=== PATIENT | male | born 1930 | race Caucasian/White ===

== ENCOUNTER 2017-02-18 12:27 | Inpatient (IN) | payer OTHER, MEDICARE ==
[~2017-02-18] VITALS: Ht 162.6 cm; Wt 71.2 kg
[~2017-02-18 12:27] MED LIST: ASPEC81 PO; ATRINS INH; CRG625 PO; LPR25 PO; LSN5 PO; LSXS PO; PANT1TAB48 PO; SIMV20TA2 PO; XPNINS1255 INH
[2017-02-18] MEDS ORDERED: SODIUM CHLORIDE 0.9% 1000ML 1,000 ML IV STA (13:15)
[2017-02-18 13:34] LABS: URINE APPEARANCE CLEAR (CLEAR); URINE BILIRUBIN NEG (NEG); URINE NITRITE NEG (NEG); URINE SPECIFIC GRAVITY 1.018 (1.000-1.030); UROBILINOGEN NEG (NEG); ZZUR CULT IF INDIC CLEAN CATCH NO
[2017-02-18 13:38] LABS: MANUAL MICROSCOPIC REQUIRED? YES; REVIEW REQ? NO
[2017-02-18 13:41] LABS: URINE COLOR DK YELLOW
[2017-02-18 13:49] LABS: BASO % 0.2 %; BASO ABS # 0.01 K/uL (0-0.2); COMPLETE YES; EOS % 2.8 %; HEMATOCRIT 28.6 % (42-52); IG% 0.4 %; LYMPH % 19.9 %; LYMPH ABS # 1.12 K/uL (1.2-3.4); MEAN CELL VOLUME 97.6 fL (80-100); MEAN CORPUSCULAR HEMOGLOBIN 32.4 pg (25-34); MEAN CORPUSCULAR HGB CONC 33.2 g/dl (32-36); MEAN PLATELET VOLUME 9.3 fL (7.4-10.4); MONO % 14.6 %; NEUT % 62.1 %; PLATELET COUNT 243 K/uL (130-400); RED BLOOD COUNT 2.93 M/uL (4.7-6.1); WHITE BLOOD COUNT 5.63 K/uL (4.8-10.8)
[2017-02-18 14:08] LABS: ALT/SGPT 14 U/L (12-78); BLOOD UREA NITROGEN 72 mg/dl (7-18); BUN/CREATININE RATIO 25.6 (10-20); CALCIUM 8.7 mg/dl (8.5-10.1); CARBON DIOXIDE 24 mmol/L (21-32); CHLORIDE 106 mmol/L (98-107); GLUCOSE 104 mg/dl (70-99); POTASSIUM 4.4 mmol/L (3.5-5.1); SODIUM 138 mmol/L (136-145)
[2017-02-18 14:10] LABS: ALKALINE PHOSPHATASE 43 U/L (45-117); AST/SGOT 16 U/L (15-37)
[2017-02-18] MEDS ORDERED: FURO40TA3 PO (14:48)
[2017-02-18] MEDS ORDERED: ASPI-232 PO (14:48)
[2017-02-18] MEDS ORDERED: CARV25TA PO (14:48)
[2017-02-18] MEDS ORDERED: HYDR-4716 PO (14:50)
[2017-02-18] MEDS ORDERED: LOSA1TAB PO (14:50)
[2017-02-18] MEDS ORDERED: ONDANSETRON INJ 2 MG/ML 2 ML VIAL IV PRN (16:00)
[2017-02-18] MEDS ORDERED: POLYETHYLENE (MIRALAX) 17 GM PACK PO PRN (16:00)
[2017-02-18] MEDS ORDERED: ACETAMINOPHEN 325 MG TAB PO PRN (16:00)
[2017-02-18] MEDS ORDERED: MAGNESIUM HYDROXIDE SUSP 30 ML UDC PO PRN (16:00)
[2017-02-18] MEDS ORDERED: ALUMINUM/MAGNESIUM/SIMETH (MAALOX MAX) 30 ML UDC PO PRN (16:00)
--- NOTE | 2017-02-18 16:00 | EMERGENCY ROOM VISIT NOTE ---
History Report prepared by Beatriz: Ofelia Bowens Under the Supervision of: Arias MehtaO. First contact with patient: 13:07 Chief Complaint: URINARY SYMPTOMS Stated Complaint: KIDNEYS ARE FAILING Nursing Triage Summary: pt reports PCP called told to come to ED for tx of failing kidney and anemia, pt denies complaints History of Present Illness The patient is a 86 year old male who presents to the Emergency Room with complaints of abnormal labs. The patient had blood work done last week as an outpatient. He received a call this morning from his PCP stating that he had kidney failure and anemia and should come to the ED for further evaluation. The patient denies any history of kidney failure. He has had diarrhea for the past 3 months and states that he has a bowel movement 7-8 times per day. The patient denies chest pain, shortness of breath, nausea, vomiting, dysuria, and increased urinary frequency or urgency. He feels that he is able to completely void is bladder when he urinates. He does not have any complaints at this time. The patient does not take any blood thinners. 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 A total of 10 systems reviewed and were otherwise negative. Past Medical & Surgical Medical Problems: (1) Anxiety/depression (2) COPD (chronic obstructive pulmonary disease) (3) Diarrhea (4) History of heart-block status post dual-chambered pacemaker in 2001 (5) Hyperlipidemia (6) Hypertension (7) Mild MR, trace AI, mild TR, and mild aortic stenosis (8) Mild pulmonary hypertension (9) Peripheral vascular disease/carotid artery diseas Surgical Problems: (1) Right carotid endarterectomy with bovine patch angioplasty Family History No pertinent family history Social History Smoking Status: Never Smoker Drug Use: none Marital Status: Housing Status: lives with significant other Occupation Status: retired Current/Historical Medications Scheduled Aspirin (Aspir-81), 1 TAB PO DAILY Carvedilol (Coreg), 25 MG PO BID Cholecalciferol (Vitamin D), 400 TABLET PO DAILY Citalopram (Citalopram Hydrobromide), 40 MG PO DAILY Cyanocobalamin (Vitamin B12 100 Mcg), 100 MCG PO DAILY Furosemide (Lasix), 20 MG PO 4XWK Furosemide (Lasix), 40 MG PO 3XWK Home O2 Therapy (Oxygen), 2 LITERS NA CONTINOUS Hydralazine HCl (Hydralazine HCl), 1 TAB PO TID Losartan Potassium (Cozaar), 50 MG PO DAILY Multiple Vitamin (Multivitamin), 1 TAB PO DAILY Allergies Coded Allergies: No Known Allergies (Verified , 02/18/17) Physical Exam Vital Signs Date Time Temp Pulse Resp B/P (MAP) Pulse Ox O2 Delivery O2 Flow Rate FiO2 02/18/17 14:23 95 Nasal Cannula 2.0 02/18/17 14:22 95 Nasal Cannula 2.0 02/18/17 14:21 86 Room Air 02/18/17 14:17 69 18 135/57 92 Room Air 02/18/17 12:30 36.4 68 20 95/41 92 Room Air Physical Exam GENERAL: alert, sitting up in bed, chronically ill appearing, well nourished, no distress, non-toxic EYE EXAM: normal conjunctiva OROPHARYNX: no exudate, no erythema, lips, buccal mucosa, and tongue normal and mucous membranes are dry NECK: supple, no nuchal rigidity, no adenopathy, non-tender LUNGS: Clear to auscultation. Normal chest wall mechanics HEART: no murmurs, S1 normal and S2 normal ABDOMEN: abdomen soft, non-tender, normo-active bowel sounds, no masses, no rebound or guarding. BACK: Back is symmetrical on inspection and there is no deformity, no midline tenderness, no CVA tenderness. SKIN: no rashes and no bruising UPPER EXTREMITIES: upper extremities are grossly normal. LOWER EXTREMITIES: No pitting edema. NEURO EXAM: Normal sensorium, cranial nerves II-XII grossly intact, normal speech, no gross weakness of arms, no gross weakness of legs. Medical Decision & Procedures Laboratory Results 02/18/17 13:30 Red Blood Count 2.93, Mean Corpuscular Volume 97.6, Mean Corpuscular Hemoglobin 32.4, Mean Corpuscular Hemoglobin Concent 33.2, Mean Platelet Volume 9.3, Neutrophils (%) (Auto) 62.1, Lymphocytes (%) (Auto) 19.9, Monocytes (%) (Auto) 14.6, Eosinophils (%) (Auto) 2.8, Basophils (%) (Auto) 0.2, Neutrophils # (Auto ) 3.50, Lymphocytes # (Auto) 1.12, Monocytes # (Auto) 0.82, Eosinophils # (Auto ) 0.16, Basophils # (Auto) 0.01 02/18/17 13:30 Test 02/18/17 13:02 02/18/17 13:30 Urine Color DK YELLOW Urine Appearance CLEAR (CLEAR) Urine pH 5.0 (4.5-7.5) Urine Specific [place] 1.018 (1.000-1.030) Urine Protein TRACE (NEG) Urine Glucose (UA) NEG (NEG) Urine Ketones NEG (NEG) Urine Occult Blood NEG (NEG) Urine Nitrite NEG (NEG) Urine Bilirubin NEG (NEG) Urine Urobilinogen NEG (NEG) Urine Leukocyte Esterase NEG (NEG) Urine Hyaline Casts (Auto) /lpf (0-5) Urine RBC /hpf (0-4) Urine WBC /hpf (0-5) Urine Epithelial Cells /lpf (0-5) Urine Bacteria (NEG) Urine Pathogenic Casts /lpf (0) White Blood Count 5.63 K/uL (4.8-10.8) Red Blood Count 2.93 M/uL (4.7-6.1) Hemoglobin 9.5 g/dL (14.0-18.0) Hematocrit 28.6 % (42-52) Mean Corpuscular Volume 97.6 fL (80-100) Mean Corpuscular Hemoglobin 32.4 pg (25-34) Mean Corpuscular Hemoglobin Concent 33.2 g/dl (32-36) Platelet Count 243 K/uL (130-400) Mean Platelet Volume 9.3 fL (7.4-10.4) Neutrophils (%) (Auto) 62.1 % Lymphocytes (%) (Auto) 19.9 % Monocytes (%) (Auto) 14.6 % Eosinophils (%) (Auto) 2.8 % Basophils (%) (Auto) 0.2 % Neutrophils # (Auto) 3.50 K/uL (1.4-6.5) Lymphocytes # (Auto) 1.12 K/uL (1.2-3.4) Monocytes # (Auto) 0.82 K/uL (0.11-0.59) Eosinophils # (Auto) 0.16 K/uL (0-0.5) Basophils # (Auto) 0.01 K/uL (0-0.2) RDW Standard Deviation 49.5 fL (36.4-46.3) RDW Coefficient of Variation 14.0 % (11.5-14.5) Immature Granulocyte % (Auto) 0.4 % Immature Granulocyte # (Auto) 0.02 K/uL (0.00-0.02) Anion Gap 8.0 mmol/L (3-11) Est Creatinine Clear Calc Drug Dose 17.1 ml/min Estimated GFR () 22.5 Estimated GFR (Non- 19.4 BUN/Creatinine Ratio 25.6 (10-20) Calcium Level 8.7 mg/dl (8.5-10.1) Total Bilirubin 0.3 mg/dl (0.2-1) Direct Bilirubin < 0.1 mg/dl (0-0.2) Aspartate Amino Transf (AST/SGOT) 16 U/L (15-37) Alanine Aminotransferase (ALT/SGPT) 14 U/L (12-78) Alkaline Phosphatase 43 U/L (45-117) Total Protein 6.8 gm/dl (6.4-8.2) Albumin 3.0 gm/dl (3.4-5.0) Lipase 138 U/L (73-393) Laboratory results per my review. Medications Administered Medications (Trade) Dose Ordered Sig/Kaya Route Start Time Stop Time Status Last Admin Dose Admin Sodium Chloride 1,000 ml @ 999 mls/hr Q1H1M STAT IV 02/18/17 13:15 02/18/17 14:15 DC 02/18/17 13:33 999 MLS/HR ED Course ED COURSE: Vital signs were reviewed and showed hypertensive. The patients medical record was reviewed The above diagnostic studies were performed and reviewed. ED treatments and interventions as stated above. 1307: The patient was evaluated in room B2. A complete history and physical examination was performed. 1315: NSS 1000 ml @ 999 mls/hr IV 1413: Upon reevaluation, the patient is resting comfortably. I discussed my findings with the patient and he understands and agrees with the treatment plan. Based on the patients age, coexisting illnesses, exam and lab findings the decision to treat as an inpatient was made. The patient remained stable while under my care. The patient will be evaluated for further management. 1457: I reviewed the patient's case with Dr. Mendez. The [facility] will evaluate the patient for further management. Medical Decision Differential Diagnosis includes but is not limited to dehydration, stroke, anemia, hypoglycemia, hyponatremia, hypernatremia, urinary tract infection, pneumonia, bronchitis, sepsis, gastroenteritis, additional abdominal pathology, metabolic abnormalities and infections. Medication Reconciliation: I attest that I have personally reviewed the patient' s current medication list. Patient is in 86-year-old male who presents the ER for acute kidney injury referred in by PCP. Baseline creatinine is 1.8. Creatinine today is 2.8. He does admit to persistent diarrhea over the past 1-2 months. Hemoglobin is 9.5. LFTs and bilirubin was unremarkable. Lipase is normal. UA was miniscule and only able to perform a dip. He was given a bolus normal saline. He was admitted to internal medicine with acute kidney injury which I think is likely secondary to dehydration. Consults Time Called: 1424 Consulting Physician: Dr. Mendez Returned Call: [phone] I reviewed the patient's case with Dr. Mendez. [facility] will evaluate the patient for further management. Impression Primary Impression: Acute kidney injury Additional Impression: Diarrhea Scribe Attestation The scribe's documentation has been prepared under my direction and personally reviewed by me in its entirety. I confirm that the note above accurately reflects all work, treatment, procedures, and medical decision making performed by me. Departure Information Dispostion Being Evaluated By Hospitalist Referrals Ananda Vazquez PA-C (PCP) Patient Instructions My [facility] Problem Qualifiers Additional Impression: Diarrhea Diarrhea type: unspecified type Qualified Codes: R19.7 - Diarrhea, unspecified
--- NOTE | 2017-02-18 16:13 | History and Physical ---
History & Physical Date & Time of Service: Feb 18, 2017 at 15:54 Chief Complaint: Kidneys Are Failing Primary Care Physician: Ananda Vazquez PA-C History of Present Illness Source: patient, family (daughter- at bedside ), clinic records, hospital records Patient is a pleasant 86 y/o male, with PMHx of chronic systolic CHF, COPD, HTN , CKD stage 3-4, anemia of chronic disease, CAD, sick sinus syndrome s/p pacemaker implantation, paroxysmal a.fib, and anxiety/depression, who presented to the ED by referral from PCP due to abnormal labs of BRYAN and anemia. Patient states he has been experiencing diarrhea 6-7x per day over the last week. Patient experienced similar symptoms about 3 months ago. At that time, he was seen by his PCP and received a CT scan; he was told he had colitis and was placed on a Prednisone taper. Symptoms resolved, but since discontinuing Prednisone, he has noticed his diarrhea has slowly started to worsen. At the onset of diarrhea, patient was taking Protonix but instructed to discontinue due to diarrhea. He denies following w/ GI doctor. Patient states he has been eating and drinking OK. He denies abdominal pain/cramping. He denies melena or bloody stools, stating his stools are "clear liquid." He denies recent antibiotic use. +SOB- chronic, non-worsening; wears 2L HS. Patient denies any fever, chills, sweats, lightheadedness, dizziness, vision changes, CP, palpitations, edema, wheezing, cough, abdominal pain, nausea, vomiting, urinary symptoms, melena, numbness/tingling, weakness, muscle/joint pain, anxiety/ depression, active bleeding, or new skin discoloration/changes. Past Medical/Surgical History Medical Problems: 1. Chronic systolic CHF 2. COPD 3. 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 Anemia of chronic disease 6. CAD 7. Sick sinus syndrome s/p pacemaker implantation 8. Paroxysmal a.fib 9. Anxiety/depression Surgical Problems: 1. Bilateral carotid endarterectomy Family History No pertinent family history Social History Smoking Status: Former Smoker Alcohol Use: none Drug Use: none Marital Status: Housing status: lives with family Occupational Status: retired Immunizations History of Influenza Vaccine: Unknown Influenza Vaccine Date: Jun 16, 2011 History of Tetanus Vaccine?: Unknown History of Pneumococcal: Unknown Pneumococcal Date: January 14, 2011 History of Hepatitis B Vaccine: Unknown Allergies Coded Allergies: No Known Allergies (Verified , 02/18/17) Home Medications Scheduled Aspirin (Aspir-81), 1 TAB PO DAILY Carvedilol (Coreg), 25 MG PO BID Cholecalciferol (Vitamin D), 400 TABLET PO DAILY Citalopram (Citalopram Hydrobromide), 40 MG PO DAILY Cyanocobalamin (Vitamin B12 100 Mcg), 100 MCG PO DAILY Furosemide (Lasix), 20 MG PO 4XWK Furosemide (Lasix), 40 MG PO 3XWK Home O2 Therapy (Oxygen), 2 LITERS NA CONTINOUS Hydralazine HCl (Hydralazine HCl), 1 TAB PO TID Losartan Potassium (Cozaar), 50 MG PO DAILY Multiple Vitamin (Multivitamin), 1 TAB PO DAILY Physical Exam Vital Signs Date Time Temp Pulse Resp B/P (MAP) Pulse Ox O2 Delivery O2 Flow Rate FiO2 02/18/17 14:23 95 Nasal Cannula 2.0 02/18/17 14:22 95 Nasal Cannula 2.0 02/18/17 14:21 86 Room Air 02/18/17 14:17 69 18 135/57 92 Room Air 02/18/17 12:30 36.4 68 20 95/41 92 Room Air General Appearance: no apparent distress Head: normocephalic, atraumatic Eyes: normal inspection, PERRL ENT: hearing grossly normal Neck: supple Respiratory/Chest: lungs clear, no respiratory distress, no accessory muscle use Cardiovascular: regular rate, rhythm, + systolic murmur (radiates to bilateral carotids ) Abdomen/GI: normal bowel sounds, non tender, soft Back: normal inspection Extremities/Musculoskelatal: no calf tenderness, no pedal edema Neurologic/Psych: alert, normal mood/affect, oriented x 3 Skin: normal color, warm/dry, no rash Diagnostics Laboratory Results Results Past 24 Hours Test 02/18/17 13:02 02/18/17 13:30 Range/Units Urine Color DK YELLOW Urine Appearance CLEAR CLEAR Urine pH 5.0 4.5-7.5 Urine Specific [place] 1.018 1.000-1.030 Urine Protein TRACE NEG Urine Glucose (UA) NEG NEG Urine Ketones NEG NEG Urine Occult Blood NEG NEG Urine Nitrite NEG NEG Urine Bilirubin NEG NEG Urine Urobilinogen NEG NEG Urine Leukocyte Esterase NEG NEG Urine Hyaline Casts (Auto) 0-5 /lpf Urine RBC 0-4 /hpf Urine WBC 0-5 /hpf Urine Epithelial Cells 0-5 /lpf Urine Bacteria NEG Urine Pathogenic Casts 0 /lpf White Blood Count 5.63 4.8-10.8 K/uL Red Blood Count 2.93 4.7-6.1 M/uL Hemoglobin 9.5 14.0-18.0 g/dL Hematocrit 28.6 42-52 % Mean Corpuscular Volume 97.6 80-100 fL Mean Corpuscular Hemoglobin 32.4 25-34 pg Mean Corpuscular Hemoglobin Concent 33.2 32-36 g/dl Platelet Count 243 130-400 K/uL Mean Platelet Volume 9.3 7.4-10.4 fL Neutrophils (%) (Auto) 62.1 % Lymphocytes (%) (Auto) 19.9 % Monocytes (%) (Auto) 14.6 % Eosinophils (%) (Auto) 2.8 % Basophils (%) (Auto) 0.2 % Neutrophils # (Auto) 3.50 1.4-6.5 K/uL Lymphocytes # (Auto) 1.12 1.2-3.4 K/uL Monocytes # (Auto) 0.82 0.11-0.59 K/uL Eosinophils # (Auto) 0.16 0-0.5 K/uL Basophils # (Auto) 0.01 0-0.2 K/uL RDW Standard Deviation 49.5 36.4-46.3 fL RDW Coefficient of Variation 14.0 11.5-14.5 % Immature Granulocyte % (Auto) 0.4 % Immature Granulocyte # (Auto) 0.02 0.00-0.02 K/uL Sodium Level 138 136-145 mmol/L Potassium Level 4.4 3.5-5.1 mmol/L Chloride Level 106 98-107 mmol/L Carbon Dioxide Level 24 21-32 mmol/L Anion Gap 8.0 3-11 mmol/L Blood Urea Nitrogen 72 7-18 mg/dl Creatinine 2.80 0.60-1.40 mg/dl Est Creatinine Clear Calc Drug Dose 17.1 ml/min Estimated GFR () 22.5 Estimated GFR (Non- 19.4 BUN/Creatinine Ratio 25.6 10-20 Random Glucose 104 70-99 mg/dl Calcium Level 8.7 8.5-10.1 mg/dl Total Bilirubin 0.3 0.2-1 mg/dl Direct Bilirubin < 0.1 0-0.2 mg/dl Aspartate Amino Transf (AST/SGOT) 16 15-37 U/L Alanine Aminotransferase (ALT/SGPT) 14 12-78 U/L Alkaline Phosphatase 43 45-117 U/L Total Protein 6.8 6.4-8.2 gm/dl Albumin 3.0 3.4-5.0 gm/dl Lipase 138 73-393 U/L Impression Assessment and Plan Patient is a pleasant 86 y/o male, with PMHx of chronic systolic CHF, COPD, HTN , CKD stage 3-4, anemia of chronic disease, CAD, sick sinus syndrome s/p pacemaker implantation, paroxysmal a.fib, and anxiety/depression, who presented to the ED by referral from PCP due to abnormal labs of BRYAN and anemia. BRYAN on CKD stage 3-4, ?secondary to dehydration from diarrhea: - Admit to med/surg - IV NSS @ 100 ml/hr - If kidney function does not improve w/ IVF, consult nephrology- patient has followed w/ Dr. Merrill in the past - Follow PRP Diarrhea: - Obtain CT scan from [facility] - Check fecal occult, stool culture, and c.diff - Consult GI, appreciate recommendations- denies h/o colonoscopy Anemia of chronic disease, baseline hgb ~11.0: - Check fecal occult - Continue iron supplement - Consider addition workup of b12/folate, iron panel, and TSH - Follow CBC Chronic systolic CHF/CAD/sick sinus s/p pacemaker: - Hold Lasix 20 mg 4XWk and 40 mg 3XWK due to BRYAN and ?dehydration - Continue Coreg 25 mg BID - Follows w/ Dr. Howell HTN: - Hold Losartan 50 mg daily due to BRYAN - Continue Hydralazine 25 mg TID COPD: - O2 protocol, wean as tolerated- wears 2L HS Anxiety/depression: Continue Celexa 40 mg daily GI Prophylaxis: Maalox PRN, IV Zofran PRN, Colace and/or Milk of Mag PRN Code Status: LEVEL V, DNR DVT prophylaxis: MAMADOU and SCDs; hold chemical therapy due to anemia Dispo: From home, lives w/ who is bed bound and has [facility]- social science teacher consulted PA Physician Supervision Note: I was present with the PA during the history and exam. I discussed the case with the PA and agree with the findings and plan as documented in the note. Any exceptions or clarifications are listed here: 86 y/o M Hx CHF, CKD, COPD, CAD Sent form MD office due to BRYAN and anemia Pt is a poor historian and denies any symptoms OE AAO x 2 S1,2 - irreg ++systolic murmur CTAB NT, ND No CCE P: IVF - trend BMP Careful monitoring of volume status due to CHF and need for hydration Trend Hb - occult blood pending Documented By: Isaac Mendez Level of Care Med/Surg Resuscitation Status FULL RESUSCITATION VTE Prophylaxis VTE Risk Assessment Done? Y/N: Yes Risk Level: Moderate Given or contraindicated: T.E.D. Stockings, SCD's, Contraindicated
[2017-02-18 17:00] VITALS: BP 150/61; PULSE 72; TEMP 36.5; O2SAT 90
[2017-02-18] MEDS: SODIUM CHLORIDE 0.9% 1000ML 1,000 ML IV SCH (18:41)
[2017-02-18 18:45] VITALS: BP 150/61; PULSE 72; TEMP 36.5; O2SAT 90; Ht 162.6 cm; Wt 71.2 kg
[2017-02-18 20:59] VITALS: BP 149/60; PULSE 77
[2017-02-18] MEDS: CARVEDILOL 25 MG TAB PO SCH (21:02)
[2017-02-18 23:24] VITALS: BP 123/53; PULSE 71; TEMP 37.1; O2SAT 96
[2017-02-19] MEDS: SODIUM CHLORIDE 0.9% 1000ML 1,000 ML IV SCH ×3 (02:17→21:30)
[2017-02-19 05:58] LABS: HEMATOCRIT 26.5 % (42-52); MEAN CELL VOLUME 97.4 fL (80-100); MEAN CORPUSCULAR HEMOGLOBIN 31.6 pg (25-34); MEAN CORPUSCULAR HGB CONC 32.5 g/dl (32-36); MEAN PLATELET VOLUME 9.4 fL (7.4-10.4); PLATELET COUNT 230 K/uL (130-400); RED BLOOD COUNT 2.72 M/uL (4.7-6.1); WHITE BLOOD COUNT 5.55 K/uL (4.8-10.8)
[2017-02-19 06:47] LABS: BUN/CREATININE RATIO 24.3 (10-20); CREATININE 2.5 mg/dl (0.60-1.40); MAGNESIUM 2.3 mg/dl (1.8-2.4); POTASSIUM 4.3 mmol/L (3.5-5.1)
[2017-02-19 06:55] LABS: CALCIUM 7.7 mg/dl (8.5-10.1)
[2017-02-19 07:14] VITALS: BP 134/61; PULSE 61; TEMP 37; O2SAT 95
[2017-02-19] MEDS: CITALOPRAM 40 MG TAB PO SCH (08:22)
[2017-02-19] MEDS: MULTIVITAMIN TAB PO SCH (08:22)
[2017-02-19] MEDS: CYANOCOBALAMIN 100 MCG TAB (VIT B-12) PO SCH (08:22)
[2017-02-19] MEDS: CARVEDILOL 25 MG TAB PO SCH ×2 (08:22→21:26)
[2017-02-19] MEDS: CHOLECALCIFEROL 1000 INTER.UNIT TAB PO SCH (08:22)
--- NOTE | 2017-02-19 10:08 | Gastrointestinal Consultation ---
Gastrointestinal Consultation Date of Consultation: Feb 19, 2017 Attending Physician: Dr. Sims Consulting Physician: Dr. Tasha Gaitan Reason for Consultation: Diarrhea, ? colitis History of Present Illness Patient is a 86 year old male patient of Ananda Vazquez PA-C with a hx of CHF, COPD, HTN, CKD 3-4, CAD sick sinus syndrome, A-fib was sent to the ED for acute kidney injury and anemia. GI is consulted for diarrhea, question colitis. He reports 6-7 liquid DMs/day for the past week. He also recalls a similar episode about 3 months ago. He tells us that he underwent CT scan with colitis at that time and was treated with prednisone which he has since tapered off. He has not had any abdominal pain, nausea, vomiting. No melena or hematochezia though occult stool was positive on arrival. Also, on arrival, Hb was 8.6, does form a baseline of about 10 a year ago. BUN is 61 and Cr is also increased at 2.5. EPIC records were reviewed and there is no hx of prior endoscopy. Past Medical/Surgical History Medical Problems: (1) Acute kidney injury Status: Acute Past Medical History: 1. Chronic systolic CHF 2. COPD 3. 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 Anemia of chronic disease 6. CAD 7. Sick sinus syndrome s/p pacemaker implantation 8. Paroxysmal a.fib 9. Anxiety/depression Past Surgical History: 1. Bilateral carotid endartectomy. Family History No pertinent family history Social History Smoking Status: Former Smoker Drug Use: none Marital Status: Housing Status: lives with significant other Occupation Status: retired Allergies Coded Allergies: No Known Allergies (Verified , 02/18/17) Current Medications Home Meds and Scripts Medications Dose Route/Sig Max Daily Dose Days Date Category Dose Instructions Cozaar (Losartan Potassium) 25 Mg Tab 50 Mg PO DAILY 02/18/17 Reported Hydralazine HCl 25 Mg Tab 1 Tab PO TID 02/18/17 Reported Lasix (Furosemide) 40 Mg Tab 40 Mg PO 3XWK 02/18/17 Reported Thursday, Thursday and Thursday Lasix (Furosemide) 20 Mg Tab 20 Mg PO 4XWK 02/18/17 Reported Thursday, Thursday, and Thursday Aspir-81 (Aspirin) 81 Mg Tab 1 Tab PO DAILY 90 02/18/17 Reported Coreg (Carvedilol) 25 Mg Tab 25 Mg PO BID 02/18/17 Reported Oxygen Gas 2 Liters NA CONTINOUS 12/10/14 Reported Citalopram Hydrobromide (Citalopram) 40 Mg Tab 40 Mg PO DAILY 12/10/14 Reported Vitamin D (Cholecalciferol) 400 Unit Tab 400 Tablet PO DAILY 09/20/13 Reported Vitamin B12 100 Mcg (Cyanocobalamin) 100 Mcg Tab 100 Mcg PO DAILY 09/20/13 Reported Multivitamin (Multiple Vitamin) 1 Tab Tab 1 Tab PO DAILY 09/20/13 Reported Review of Systems Constitutional: No fever, No chills, No sweats, No weight loss, No weakness Eyes: No eye pain, No redness ENT: No sore throat, No trouble swallowing, No pain on swallowing Respiratory: No cough, No wheezing, No shortness of breath, No dyspnea on exertion Cardiac: No chest pain, No edema, No palpitations Abdomen: + see HPI, + diarrhea, No pain, No nausea, No vomiting Neuro: No memory loss, No weakness, No numbness/tingling, No vertigo, No balance problems Psych: No depression symptoms, No anxiety, No insomnia Heme: No abnormal bleeding/bruising, No night sweats Endo: No excessive thirst, No excessive urination Skin: No rash, No itch, No new/changing skin lesions, No jaundice Physical Exam Date Time Temp Pulse Resp B/P (MAP) Pulse Ox O2 Delivery O2 Flow Rate FiO2 02/19/17 08:00 Room Air 02/19/17 07:14 37.0 61 16 134/61 (85) 95 Room Air 02/19/17 00:00 Nasal Cannula 2.0 02/18/17 23:24 37.1 71 16 123/53 (76) 96 Nasal Cannula 2.0 02/18/17 20:59 77 149/60 (89) 02/18/17 18:45 36.5 72 20 150/61 90 Room Air 02/18/17 17:00 36.5 72 20 150/61 (90) 90 Room Air 02/18/17 16:27 71 16 151/53 95 Nasal Cannula 2.0 02/18/17 14:23 95 Nasal Cannula 2.0 02/18/17 14:22 95 Nasal Cannula 2.0 02/18/17 14:21 86 Room Air 02/18/17 14:17 69 18 135/57 92 Room Air 02/18/17 12:30 36.4 68 20 95/41 92 Room Air General Appearance: no apparent distress Eyes: normal inspection, EOMI Neck: supple, no adenopathy, thyroid normal Respiratory/Chest: chest non-tender, no accessory muscle use, + crackles, + wheezing (scattered ) Cardiovascular: no JVD, + systolic murmur, + irregularly irregular Abdomen: normal bowel sounds, non tender, soft, no organomegaly Extremities: normal inspection, no pedal edema, normal capillary refill Neurologic/Psych: alert, normal mood/affect, oriented x 3 Skin: normal color, no jaundice, warm/dry, no rash Laboratory Results Last 24 Hours Test 02/18/17 13:02 02/18/17 13:30 02/18/17 22:00 02/19/17 05:10 Urine Color DK YELLOW Urine Appearance CLEAR Urine pH 5.0 Urine Specific [place] 1.018 Urine Protein TRACE Urine Glucose (UA) NEG Urine Ketones NEG Urine Occult Blood NEG Urine Nitrite NEG Urine Bilirubin NEG Urine Urobilinogen NEG Urine Leukocyte Esterase NEG Urine Hyaline Casts (Auto) /lpf Urine RBC /hpf Urine WBC /hpf Urine Epithelial Cells /lpf Urine Bacteria Urine Pathogenic Casts /lpf White Blood Count 5.63 K/uL 5.55 K/uL Red Blood Count 2.93 M/uL 2.72 M/uL Hemoglobin 9.5 g/dL 8.6 g/dL Hematocrit 28.6 % 26.5 % Mean Corpuscular Volume 97.6 fL 97.4 fL Mean Corpuscular Hemoglobin 32.4 pg 31.6 pg Mean Corpuscular Hemoglobin Concent 33.2 g/dl 32.5 g/dl Platelet Count 243 K/uL 230 K/uL Mean Platelet Volume 9.3 fL 9.4 fL Neutrophils (%) (Auto) 62.1 % Lymphocytes (%) (Auto) 19.9 % Monocytes (%) (Auto) 14.6 % Eosinophils (%) (Auto) 2.8 % Basophils (%) (Auto) 0.2 % Neutrophils # (Auto) 3.50 K/uL Lymphocytes # (Auto) 1.12 K/uL Monocytes # (Auto) 0.82 K/uL Eosinophils # (Auto) 0.16 K/uL Basophils # (Auto) 0.01 K/uL RDW Standard Deviation 49.5 fL 49.8 fL RDW Coefficient of Variation 14.0 % 14.1 % Immature Granulocyte % (Auto) 0.4 % Immature Granulocyte # (Auto) 0.02 K/uL Sodium Level 138 mmol/L 140 mmol/L Potassium Level 4.4 mmol/L 4.3 mmol/L Chloride Level 106 mmol/L 110 mmol/L Carbon Dioxide Level 24 mmol/L 21 mmol/L Anion Gap 8.0 mmol/L 9.0 mmol/L Blood Urea Nitrogen 72 mg/dl 61 mg/dl Creatinine 2.80 mg/dl 2.50 mg/dl Est Creatinine Clear Calc Drug Dose 17.1 ml/min 18.9 ml/min Estimated GFR () 22.5 25.8 Estimated GFR (Non- 19.4 22.3 BUN/Creatinine Ratio 25.6 24.3 Random Glucose 104 mg/dl 90 mg/dl Calcium Level 8.7 mg/dl 7.7 mg/dl Total Bilirubin 0.3 mg/dl Direct Bilirubin < 0.1 mg/dl Aspartate Amino Transf (AST/SGOT) 16 U/L Alanine Aminotransferase (ALT/SGPT) 14 U/L Alkaline Phosphatase 43 U/L Total Protein 6.8 gm/dl Albumin 3.0 gm/dl Lipase 138 U/L Stool Occult Blood POSITIVE Magnesium Level 2.3 mg/dl Impression Patient is a 86 year old male with recurrent, painless diarrhea. C-diff is negative. Differentials include microscopic colitis, ulcerative colitis. Regarding his anemia, he is below his typical baseline but no gross GI bleeding. Plan 1. Offered colonoscopy but pt declines. 2. Cholestyramine twice daily. 3. Would also consider Imodium. I saw and evaluated the patient. GI is consulted for persistent diarrhea over 3 to 4 months. PE: NAD, No abdominal tenderness Impression: patient with diarrhea, no obvious infection based on cultures today. PErhaps the patient has Microscopic colitis given the use of nsaids and a PPI. AT this time, the patient is not interested in Colonscopy REcs: Stool culture stool for Giardia Stool for O and P Try Qeustran 4 gm bid please call with questions
--- NOTE | 2017-02-19 13:30 | Progress Note ---
Subjective Date of Service: Feb 19, 2017. Subjective Pt evaluation today including: conversation w/ patient, physical exam, lab review, conversation w/ instructional consultant, review of inpatient medication list Pain: denies pain PO Intake: adequate Voiding: no voiding problems patient says that he is moving bowels several times a day, small, mostly liquid but some formed elements no blood or melena seen appreciate GI note, patient refused colonoscopy he has NEVER had a colonoscopy he is concerned because his sister in law had a perforation and required a colostomy assured him that that is a rare complication colonoscopy could provide us with diagnosis that could be treated, asked him to reconsider reviewed labs, BUN/Cr improved, Hb down to 8.5 Problem List Medical Problems: (1) Acute kidney injury Status: Acute Review of Systems Constitutional: + weakness, + fatigue Abdomen: + diarrhea All Other Systems: Reviewed and Negative Medications Current Inpatient Medications Medications (Trade) Dose Ordered Sig/Kaya Route Start Time Stop Time Status Last Admin Dose Admin Acetaminophen (Tylenol Tab) 650 mg Q4H PRN PO 02/18/17 16:00 03/20/17 15:59 Al Hydrox/Mg Hydrox/Simethicone (Maalox Max Susp) 15 ml Q4H PRN PO 02/18/17 16:00 03/20/17 15:59 Magnesium Hydroxide (Milk Of Magnesia Susp) 30 ml Q6H PRN PO 02/18/17 16:00 03/20/17 15:59 Ondansetron HCl (Zofran Inj) 4 mg Q6H PRN IV 02/18/17 16:00 03/20/17 15:59 Sodium Chloride 1,000 ml @ 100 mls/hr Q10H IV 02/18/17 16:00 03/20/17 15:59 02/19/17 11:57 100 MLS/HR Carvedilol (Coreg Tab) 25 mg BID PO 02/18/17 21:00 03/20/17 20:59 02/19/17 08:22 25 MG Cholecalciferol (Vitamin D Tab) 1,000 inter.unit DAILY PO 02/19/17 09:00 03/21/17 08:59 02/19/17 08:22 1,000 INTER.UNIT Citalopram Hydrobromide (celeXA TAB) 40 mg DAILY PO 02/19/17 09:00 03/21/17 08:59 6/15/17 08:22 40 MG Cyanocobalamin (Vitamin B-12 Tab) 100 mcg DAILY PO 02/19/17 09:00 03/21/17 08:59 02/19/17 08:22 100 MCG Hydralazine HCl (Apresoline Tab) 25 mg TID PO 02/18/17 21:00 03/20/17 20:59 02/19/17 08:21 25 MG Multivitamins (Multivitamin Tab) 1 tab DAILY PO 02/19/17 09:00 03/21/17 08:59 02/19/17 08:22 1 TAB Cholestyramine Resin (Questran Powder Light) 4 gm BID@ PO 02/19/17 22:00 03/21/17 21:59 Objective Vital Signs Date Time Temp Pulse Resp B/P (MAP) Pulse Ox O2 Delivery O2 Flow Rate FiO2 02/19/17 08:00 Room Air 02/19/17 07:14 37.0 61 16 134/61 (85) 95 Room Air 02/19/17 00:00 Nasal Cannula 2.0 02/18/17 23:24 37.1 71 16 123/53 (76) 96 Nasal Cannula 2.0 02/18/17 20:59 77 149/60 (89) 02/18/17 18:45 36.5 72 20 150/61 90 Room Air 02/18/17 17:00 36.5 72 20 150/61 (90) 90 Room Air 02/18/17 16:27 71 16 151/53 95 Nasal Cannula 2.0 02/18/17 14:23 95 Nasal Cannula 2.0 02/18/17 14:22 95 Nasal Cannula 2.0 02/18/17 14:21 86 Room Air 02/18/17 14:17 69 18 135/57 92 Room Air Physical Exam General Appearance: WD/WN, no apparent distress Eyes: normal inspection, EOMI, sclerae normal Neck: supple, no adenopathy, no JVD, trachea midline Respiratory/Chest: chest non-tender, lungs clear, normal breath sounds, no respiratory distress, no accessory muscle use Cardiovascular: regular rate, rhythm, no edema, no gallop, no JVD, + systolic murmur Abdomen: normal bowel sounds, non tender, soft, no organomegaly Extremities: normal range of motion, non-tender, normal inspection, no pedal edema, no calf tenderness, pelvis stable 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, no motor/sensory deficits, alert, normal mood/affect, oriented x 3 Skin: normal color, warm/dry, no rash Lymphatic: no adenopathy Laboratory Results Last 24 Hours Test 02/18/17 13:30 02/18/17 22:00 02/19/17 05:10 White Blood Count 5.63 K/uL 5.55 K/uL Red Blood Count 2.93 M/uL 2.72 M/uL Hemoglobin 9.5 g/dL 8.6 g/dL Hematocrit 28.6 % 26.5 % Mean Corpuscular Volume 97.6 fL 97.4 fL Mean Corpuscular Hemoglobin 32.4 pg 31.6 pg Mean Corpuscular Hemoglobin Concent 33.2 g/dl 32.5 g/dl Platelet Count 243 K/uL 230 K/uL Mean Platelet Volume 9.3 fL 9.4 fL Neutrophils (%) (Auto) 62.1 % Lymphocytes (%) (Auto) 19.9 % Monocytes (%) (Auto) 14.6 % Eosinophils (%) (Auto) 2.8 % Basophils (%) (Auto) 0.2 % Neutrophils # (Auto) 3.50 K/uL Lymphocytes # (Auto) 1.12 K/uL Monocytes # (Auto) 0.82 K/uL Eosinophils # (Auto) 0.16 K/uL Basophils # (Auto) 0.01 K/uL RDW Standard Deviation 49.5 fL 49.8 fL RDW Coefficient of Variation 14.0 % 14.1 % Immature Granulocyte % (Auto) 0.4 % Immature Granulocyte # (Auto) 0.02 K/uL Sodium Level 138 mmol/L 140 mmol/L Potassium Level 4.4 mmol/L 4.3 mmol/L Chloride Level 106 mmol/L 110 mmol/L Carbon Dioxide Level 24 mmol/L 21 mmol/L Anion Gap 8.0 mmol/L 9.0 mmol/L Blood Urea Nitrogen 72 mg/dl 61 mg/dl Creatinine 2.80 mg/dl 2.50 mg/dl Est Creatinine Clear Calc Drug Dose 17.1 ml/min 18.9 ml/min Estimated GFR () 22.5 25.8 Estimated GFR (Non- 19.4 22.3 BUN/Creatinine Ratio 25.6 24.3 Random Glucose 104 mg/dl 90 mg/dl Calcium Level 8.7 mg/dl 7.7 mg/dl Total Bilirubin 0.3 mg/dl Direct Bilirubin < 0.1 mg/dl Aspartate Amino Transf (AST/SGOT) 16 U/L Alanine Aminotransferase (ALT/SGPT) 14 U/L Alkaline Phosphatase 43 U/L Total Protein 6.8 gm/dl Albumin 3.0 gm/dl Lipase 138 U/L Stool Occult Blood POSITIVE Magnesium Level 2.3 mg/dl Assessment and Plan Patient is a pleasant 86 y/o male, with PMHx of chronic systolic CHF, COPD, HTN , CKD stage 3-4, anemia of chronic disease, CAD, sick sinus syndrome s/p pacemaker implantation, paroxysmal a.fib, and anxiety/depression, who presented to the ED by referral from PCP due to abnormal labs of BRYAN and anemia. BRYAN on CKD stage 3-4, likely prerenal secondary to dehydration from diarrhea: Cr improved to 2.5 today from 2.8, BUN also trending down continue NSS at 100cc/hr for today, hold nephrotoxins repeat labs tomorrow Diarrhea: several weeks duration at this point, non-bloody, did improve with Prednisone need to review CT from [place] follow up cultures, C diff negative GI recommended colonoscopy, patient refuses, asked him to strongly reconsider Questran and Imodium PRN Anemia of chronic disease, baseline hgb ~11.0: mild drop in Hb to 8.5, will follow closely continue iron supplement fecal occult Chronic systolic CHF/CAD/sick sinus s/p pacemaker: hold Lasix again today, will resume once NSS off continue Coreg hold Losartan HTN: BP stable, hold Losartan, continue Hydralazine COPD: - O2 protocol, wean as tolerated- wears 2L HS Anxiety/depression: Continue Celexa 40 mg daily Code Status: LEVEL V, DNR DVT prophylaxis: MAMADOU and SCDs; hold chemical therapy due to anemia
[2017-02-19 15:26] VITALS: BP 130/63; PULSE 74; TEMP 36.6; O2SAT 90
[2017-02-19 16:00] VITALS: O2SAT 90
[2017-02-19 21:24] VITALS: BP 163/71; PULSE 78; O2SAT 93
[2017-02-19] MEDS: CHOLESTYRAMINE LIGHT 4 GM PKT PO SCH (21:30)
[2017-02-20] VITALS: BP 138/62; PULSE 82; TEMP 36.7; O2SAT 92
[2017-02-20 06:37] LABS: HEMATOCRIT 25.9 % (42-52); MEAN CELL VOLUME 96.3 fL (80-100); MEAN CORPUSCULAR HEMOGLOBIN 31.2 pg (25-34); MEAN CORPUSCULAR HGB CONC 32.4 g/dl (32-36); MEAN PLATELET VOLUME 9.1 fL (7.4-10.4); PLATELET COUNT 220 K/uL (130-400); RED BLOOD COUNT 2.69 M/uL (4.7-6.1); WHITE BLOOD COUNT 5.87 K/uL (4.8-10.8)
[2017-02-20 07:11] LABS: BUN/CREATININE RATIO 24.1 (10-20); CALCIUM 7.1 mg/dl (8.5-10.1); CREATININE 1.9 mg/dl (0.60-1.40); POTASSIUM 4.3 mmol/L (3.5-5.1)
[2017-02-20 07:17] VITALS: BP 141/57; PULSE 72; TEMP 37; O2SAT 95
[2017-02-20] MEDS: CYANOCOBALAMIN 100 MCG TAB (VIT B-12) PO SCH (08:27)
[2017-02-20] MEDS: CHOLECALCIFEROL 1000 INTER.UNIT TAB PO SCH (08:27)
[2017-02-20] MEDS: MULTIVITAMIN TAB PO SCH (08:27)
[2017-02-20] MEDS: CHOLESTYRAMINE LIGHT 4 GM PKT PO SCH (08:27)
[2017-02-20] MEDS: SODIUM CHLORIDE 0.9% 1000ML 1,000 ML IV SCH (08:27)
[2017-02-20] MEDS: CARVEDILOL 25 MG TAB PO SCH (08:28)
[2017-02-20] MEDS: CITALOPRAM 40 MG TAB PO SCH (08:28)
[2017-02-20] MEDS ORDERED: IMD2X PO (09:56)
[2017-02-20] MEDS ORDERED: QSTP PO (09:56)
--- NOTE | 2017-02-20 10:07 | Discharge Instructions ---
Discharge Instructions Date of Service Feb 20, 2017. Admission Reason for Admission: Acute Renal Failure, Diarrhea Discharge Discharge Diagnosis / Problem: Diarrhea, Acute renal failure on CKD Discharge Goals Goal(s): Improve function, Improve disease control Activity Recommendations Activity Limitations: resume your previous activity Lifting Limitations: none Exercise/Sports Limitations: as tolerated May Resume Sexual Activity: when tolerated Shower/Bathe: no limitations Driving or Machine Use: no limitations . Instructions / Follow-Up Instructions / Follow-Up Medications: - HYDRALAZINE: stop this medication to see if diarrhea resolves since the medication was added prior to diarrhea starting - CHOLESTYRAMINE: take twice a day to solidify stools, if stools become hard then taper back to just once a day and if still solid stop all together - IMODIUM: use as needed if you still have diarrhea with the Cholestyramine Diarrhea: infectious causes such as C diff and other bacterial infections ruled out with cultures. Gastroenterology has offered a colonoscopy which you have refused. benefit really could outweigh the risks as we could get a diagnosis however, I think it is reasonable to try to hold Hydralazine for two weeks to see if diarrhea resolves treat the symptoms with Questran first and then imodium if needed Acute renal failure on chronic kidney disease: resolved, Cr down to 1.9 which is your baseline renal function you can resume Losartan and Lasix as you were taking previously Hypertension: holding Hydralazine, you blood pressure was reasonable this AM at 140 systolic you will continue you Losartan and Coreg and Lasix follow up with PCP in the office next week for blood pressure check off the Hydralazine, may need a new medication if too high FOLLOW UP - Ananda PATEL in the office next week for blood pressure check and follow up on diarrhea - Dr. Howell, make appointment a few weeks from now since Hydralazine stopped - Pablo LAURA, can follow up for colonoscopy if diarrhea persists and you want to get diagnostic work up [phone] Current Hospital Diet Patient's current hospital diet: AHA Diet (Heart Healthy) Discharge Diet Recommended Diet: AHA Diet (Heart Healthy) Pending Studies Studies pending at discharge: no Medical Emergencies . Who to Call and When: Medical Emergencies: If at any time you feel your situation is an emergency, please call 911 immediately. . Non-Emergent Contact Non-Emergency issues call your: Primary Care Provider, Digital Sales Representative Call Non-Emergent contact if: you have any medication questions . . "Provider Documentation" section prepared by Jaime Kong. . VTE Core Measure Inpt VTE Proph given/why not?: Isidro Yanez, SCD's, Contraindicated [place] Drug Monitoring Program Search Results: no issues identified
[2017-02-20 10:33] VITALS: BP 141/57; PULSE 72; TEMP 37; O2SAT 95
--- NOTE | 2017-02-21 09:36 | Discharge Summary ---
Discharge Summary Date of Service Feb 20, 2017. Discharge Summary Admission Date: Feb 18, 2017 at 15:53 Discharge Date: Feb 20, 2017 Discharge Disposition: Home Principal Diagnosis: Diarrhea Problems/Secondary Diagnoses: BRYAN on CKD stage III Chronic systolic HF Anemia of chronic disease HTN Immunizations: Have You Had Influenza Vaccine: Unknown Influenza Vaccine Date: Jun 16, 2011 History of Tetanus Vaccine?: Unknown History of Pneumococcal: Unknown Pneumococcal Date: January 14, 2011 History of Hepatitis B Vaccine: Unknown Procedures: none Consultations: Gastroenterology Medication Reconciliation New Medications: Loperamide Hcl (Imodium) 2 Mg Cap 2 MG PO Q8 PRN for Diarrhea, #30 CAP Cholestyramine (Cholestyramine Light) 4 Gm Pack 4 GM PO BID@, PRN for Diarrhea MDD 8gm, #1 BTL 1 Refill Continued Medications: Aspirin (Aspir-81) 81 Mg Tab 1 TAB PO DAILY for 90 Days, #90 TAB 3 Refills Carvedilol (Coreg) 25 Mg Tab 25 MG PO BID, TAB Cholecalciferol (Vitamin D) 400 Unit Tab 400 TABLET PO DAILY Citalopram (Citalopram Hydrobromide) 40 Mg Tab 40 MG PO DAILY, #30 Cyanocobalamin (Vitamin B12 100 Mcg) 100 Mcg Tab 100 MCG PO DAILY, TAB Furosemide (Lasix) 20 Mg Tab 20 MG PO 4XWK Thursday, Thursday, and Thursday Furosemide (Lasix) 40 Mg Tab 40 MG PO 3XWK, TAB Thursday, Thursday and Thursday Home O2 Therapy (Oxygen) Gas 2 LITERS NA CONTINOUS Losartan Potassium (Cozaar) 25 Mg Tab 50 MG PO DAILY, TAB Multiple Vitamin (Multivitamin) 1 Tab Tab 1 TAB PO DAILY, TAB Discontinued Medications: Hydralazine HCl (Hydralazine HCl) 25 Mg Tab 1 TAB PO TID Discharge Exam Patient feeling well, less diarrhea, no bleeding. No other complaints. Went over the detailed plans for discharge, all questions answered. Had talked in detail with patient's daughter the day before discharge. Review of Systems: Constitutional: No fever, No chills, No sweats, No weight loss, No weakness , No fatigue, No problem reported Eyes: No worsening of vision, No eye pain, No redness, No discharge, No diplopia, No problem reported ENT: No hearing loss, No unusual epistaxis, No nasal symptoms, No sore throat, No tinnitus, No dental problems, No trouble swallowing, No problem reported Respiratory: No cough, No sputum, No wheezing, No shortness of breath, No dyspnea on exertion, No dyspnea at rest, No hemoptysis, No problem reported Cardiovascular: No chest pain, No orthopnea, No PND, No edema, No claudication, No palpitations, No problem reported Abdomen: + diarrhea (improving), No pain, No nausea, No vomiting, No constipation, No GI bleeding, No problem reported Musculoskeletal: No joint pain, No muscle pain, No swelling, No calf pain, No problem reported Genitourinary - Male: No hematuria, No dysuria, No urinary frequency, No urinary urgency Neurologic: No memory loss, No paralysis, No weakness, No numbness/tingling , No vertigo, No balance problems, No problem reported Psychiatric: No depression symptoms, No anhedonism, No anxiety, No insomnia , No substance abuse, No problem reported Endocrine: No fatigue, No excessive thirst, No excessive urination, No problem reported Hematologic / Lymphatic: No abnormal bleeding/bruising, No clotting problems , No swollen lymph nodes, No night sweats, No problem reported Integumentary: No rash, No itch, No new/changing skin lesions, No color change, No bleeding, No problem reported Physical Exam: General Appearance: WD/WN, no apparent distress Eyes: normal inspection, EOMI, sclerae normal Neck: supple, no adenopathy, no JVD, trachea midline Respiratory/Chest: chest non-tender, lungs clear, normal breath sounds, no respiratory distress, no accessory muscle use Cardiovascular: regular rate, rhythm, no edema, no gallop, no JVD, no murmur , normal peripheral pulses Abdomen / GI: normal bowel sounds, non tender, soft, no organomegaly, + pertinent finding (possible direct inguinal hernia, reducible on exam) Extremities: normal inspection, no calf tenderness, normal capillary refill , no pedal edema, normal range of motion, pelvis stable 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 BRYAN on CKD stage 3-4, likely prerenal secondary to dehydration from diarrhea: Cr improved to 1.9 from 2.8 at time of admission, acute component resolved, BUN also trending down treated with NSS at 100cc/hr, stopped in the morning, held nephrotoxins Cr at baseline, good UO Diarrhea: several weeks duration at this point, non-bloody, did improve with Prednisone need to review CT from [place], never got results stool culture negative, C diff negative GI recommended colonoscopy, patient refuses, asked him to strongly reconsider as outpatient if diarrhea does not resolve per daughter, the Hydralazine was added prior to diarrhea starting, a side effect is diarrhea, she asked if we could try stopping Hydralazine this is reasonable, only 25mg TID and likely just to augment systolic HF treatment will stop Hydralazine to see if diarrhea resolves, Questran and Imodium PRN Anemia of chronic disease, baseline hgb ~11.0: Hb at 8.6 and 8.4, no signs of active bleeding continue iron supplement again, GI recommends colonoscopy but patient refuses Chronic systolic CHF/CAD/sick sinus s/p pacemaker: resume Lasix on d/c now that BRYAN resolved, IV fluids stopped continue Coreg resume Losartan with BRYAN resolved note that Hydralazine stopped to see if diarrhea improves, should f/u with Dr. Howell HTN: BP stable, continue Coreg and Losartan and Lasix again, stopping Hydralazine as a trial for diarrhea COPD: - stable Anxiety/depression: Continue Celexa 40 mg daily Code Status: LEVEL V, DNR DVT prophylaxis: MAMADOU and SCDs; hold chemical therapy due to anemia Total Time Spent: Greater than 30 minutes This includes examination of the patient, discharge planning, medication reconciliation, and communication with other providers. Discharge Instructions Please refer to the electronic Patient Visit Report (Discharge Instructions) for additional information. Follow-Up PCP in one week Dr. Howell in 2-3 weeks [facility] as needed for colonoscopy if diarrhea does not improve Additional Copies To Tasha Gaitan DO; Sherif Howell, DO; Ananda Vazquez PA-C
[2017-06-02] MEDS ORDERED: MULTTAB58 PO (11:11)
[2017-06-02] MEDS ORDERED: CHOL400T5 PO (11:11)
[2017-06-02] MEDS ORDERED: CYAN100T6 PO (11:11)
[2017-06-02] MEDS ORDERED: FURO20TA PO (14:48)
[2017-07-01] MEDS ORDERED: BUME1TAB PO (12:23)
== END 2017-02-20 11:25 | disposition home or self-care (01) | DRG 683 ==
LOC: C.EDB 12:28 → C.MS2W 15:53 → ENRESERV 15:59
PROVIDERS: ADMIT Internal Medicine; ATTEND Internal Medicine
DX: N17.9 Acute kidney failure, unspecified (principal); I50.22 Chronic systolic (congestive) heart failure; F32.9 Major depressive disorder, single episode, unspecified; F41.9 Anxiety disorder, unspecified; I65.29 Occlusion and stenosis of unspecified carotid artery; J44.9 Chronic obstructive pulmonary disease, unspecified; Z95.0 Presence of cardiac pacemaker; E78.5 Hyperlipidemia, unspecified; I73.9 Peripheral vascular disease, unspecified; N18.3 Chronic kidney disease, stage 3 (moderate); I25.10 Atherosclerotic heart disease of native coronary artery without angina pectoris; Z87.891 Personal history of nicotine dependence; E86.0 Dehydration; Z53.29 Procedure and treatment not carried out because of patient's decision for other reasons

== ENCOUNTER 2017-06-02 18:41 | Emergency (ER) | payer OTHER, MEDICARE ==
[~2017-06-02] VITALS: Ht 160 cm; Wt 74.3 kg
[~2017-06-02 18:41] MED LIST changes: -ASPEC81 PO; +ASPI-232 PO; -ATRINS INH; +CARV25TA PO; +CHOL400T5 PO; -CRG625 PO; +CYAN100T6 PO; +FURO20TA PO; +FURO40TA3 PO; +IMD2X PO; +LOSA1TAB PO; -LPR25 PO; -LSN5 PO; -LSXS PO; +MULTTAB58 PO; -PANT1TAB48 PO; +QSTP PO; -SIMV20TA2 PO; -XPNINS1255 INH
[2017-06-02 18:54] VITALS: TEMP 36.9; Ht 160 cm; Wt 74.3 kg
--- NOTE | 2017-06-02 20:37 | EMERGENCY ROOM VISIT NOTE ---
History Report prepared by Beatriz: Stacey Dubon Under the Supervision of: Dr. Enrique Cordoba M.D. First contact with patient: 20:00 Chief Complaint: REFERRED BY DOCTOR Stated Complaint: KIDNEY FAILURE, CHF History of Present Illness The patient is an 86 year old male with a past medical history of atrial fibrillation who presents to the ED with a cc of an episode of abnormal lab work beginning prior to arrival. He states that he got a call from his PCP stating they thought he had CHF and fatal kidney function. Positive taking diuretics regularly, urinating still, and use of baby Aspirin. Negative weight gain, swelling, shortness of breath, cough, fevers, chills, chest pain, use of Motrin, use of Coumadin, and recent travel. Source of History: patient, spouse/significant other Onset: prior to arrival Position: other (global) Quality: other (global) Timing: other (episode) Associated Symptoms: No fevers, No chills, No cough, No chest pain, No SOB Note: Positive taking diuretics regularly, urinating still, and use of baby Aspirin. Negative weight gain, swelling, use of Motrin, use of Coumadin, and recent travel. Review of Systems See HPI for pertinent positives and negatives. A total of ten systems were reviewed and were otherwise negative. Past Medical & Surgical Medical Problems: (1) Anxiety/depression (2) Atrial fibrillation (3) COPD (chronic obstructive pulmonary disease) (4) Diarrhea (5) History of heart-block status post dual-chambered pacemaker in 2001 (6) Hyperlipidemia (7) Hypertension (8) Mild MR, trace AI, mild TR, and mild aortic stenosis (9) Mild pulmonary hypertension (10) Peripheral vascular disease/carotid artery diseas Surgical Problems: (1) Right carotid endarterectomy with bovine patch angioplasty Family History No pertinent family history Social History Smoking Status: Former Smoker Drug Use: none Marital Status: Housing Status: lives with significant other Occupation Status: retired Current/Historical Medications Scheduled Aspirin (Aspirin Ec), 81 MG PO HS Carvedilol (Carvedilol), 25 MG PO BID Cholecalciferol (Vitamin D), 400 INTER.UNIT PO DAILY Citalopram (Citalopram Hydrobromide), 40 MG PO HS Cyanocobalamin (Vitamin B12 100 Mcg), 100 MCG PO DAILY Furosemide (Lasix), 40 MG PO 3XWK Furosemide (Furosemide), 20 MG PO 4XWK Home O2 Therapy (Oxygen), 2 LITERS NA HS Hydralazine Hcl (Apresoline), 25 MG PO TID Multiple Vitamin (Multivitamin), 1 TAB PO DAILY Scheduled PRN Cholestyramine Light (Questran Powder Light), 4 GM PO BID PRN for Diarrhea Loperamide Hcl (Imodium), 2 MG PO Q8 PRN for Diarrhea Allergies Coded Allergies: No Known Allergies (Verified , 02/18/17) Physical Exam Vital Signs Date Time Temp Pulse Resp B/P (MAP) Pulse Ox O2 Delivery O2 Flow Rate FiO2 06/02/17 22:04 75 22 161/65 93 Room Air 06/02/17 21:05 77 18 166/88 98 Room Air 06/02/17 21:04 80 06/02/17 18:54 36.9 72 20 139/56 92 Room Air Physical Exam GENERAL: Awake, alert, well-appearing, NAD HENT: Normocephalic, atraumatic. EYES: Normal conjunctiva. Sclera non-icteric. NECK: Supple. No nuchal rigidity. FROM. RESPIRATORY: CTAB, no rhonchi, wheezing, bi-basal crackles at lung bases CARDIAC: Irregularly irregular, no MRG ABDOMEN: Soft, NTND, BS+ MSK: No chest wall TTP, 1-2+ pitting edema bilaterally, asymmetric, no erythema or calor. NEURO: GCS 15, CN 2-12 intact, moves all 4s on command SKIN: No rash or jaundice noted. Medical Decision & Procedures ER Provider Diagnostic Interpretation: Radiology results as stated below per my review and radiologist interpretation: CHEST ONE VIEW PORTABLE CLINICAL HISTORY: 86 years-old Male presenting with h/o CHF, kidney failure. TECHNIQUE: Portable upright AP view of the chest was obtained. COMPARISON: 02/20/2015. FINDINGS: Left-sided pacer with leads to the right atrium, right ventricle, and coronary sinus. Atherosclerosis of aortic arch. Cardiac silhouette is not significantly enlarged. Mild prominence of pulmonary vasculature is stable from prior exam. Lungs and pleural spaces clear. Osseous structures normal. Upper abdomen normal. IMPRESSION: 1. Mild prominence of pulmonary vasculature without convincing evidence of pulmonary edema. Electronically signed by: Jose Durán M.D. 06/02/2017 9:02 PM Dictated Date/Time: 06/02/2017 9:00 PM Laboratory Results 06/02/17 20:50 Red Blood Count 3.46, Mean Corpuscular Volume 100.9, Mean Corpuscular Hemoglobin 31.5, Mean Corpuscular Hemoglobin Concent 31.2, Mean Platelet Volume 9.7, Neutrophils (%) (Auto) 66.6, Lymphocytes (%) (Auto) 21.7, Monocytes (%) ( Auto) 8.7, Eosinophils (%) (Auto) 2.3, Basophils (%) (Auto) 0.3, Neutrophils # ( Auto) 6.05, Lymphocytes # (Auto) 1.97, Monocytes # (Auto) 0.79, Eosinophils # ( Auto) 0.21, Basophils # (Auto) 0.03 06/02/17 20:50 Test 06/02/17 20:50 06/02/17 20:56 White Blood Count 9.09 K/uL (4.8-10.8) Red Blood Count 3.46 M/uL (4.7-6.1) Hemoglobin 10.9 g/dL (14.0-18.0) Hematocrit 34.9 % (42-52) Mean Corpuscular Volume 100.9 fL (80-100) Mean Corpuscular Hemoglobin 31.5 pg (25-34) Mean Corpuscular Hemoglobin Concent 31.2 g/dl (32-36) Platelet Count 218 K/uL (130-400) Mean Platelet Volume 9.7 fL (7.4-10.4) Neutrophils (%) (Auto) 66.6 % Lymphocytes (%) (Auto) 21.7 % Monocytes (%) (Auto) 8.7 % Eosinophils (%) (Auto) 2.3 % Basophils (%) (Auto) 0.3 % Neutrophils # (Auto) 6.05 K/uL (1.4-6.5) Lymphocytes # (Auto) 1.97 K/uL (1.2-3.4) Monocytes # (Auto) 0.79 K/uL (0.11-0.59) Eosinophils # (Auto) 0.21 K/uL (0-0.5) Basophils # (Auto) 0.03 K/uL (0-0.2) RDW Standard Deviation 52.4 fL (36.4-46.3) RDW Coefficient of Variation 14.2 % (11.5-14.5) Immature Granulocyte % (Auto) 0.4 % Immature Granulocyte # (Auto) 0.04 K/uL (0.00-0.02) Anion Gap 7.0 mmol/L (3-11) Est Creatinine Clear Calc Drug Dose 22.4 ml/min Estimated GFR () 31.8 Estimated GFR (Non- 27.5 BUN/Creatinine Ratio 28.6 (10-20) Calcium Level 8.5 mg/dl (8.5-10.1) Phosphorus Level 3.0 mg/dl (2.5-4.9) Magnesium Level 2.5 mg/dl (1.8-2.4) Pro-B-Type Natriuretic Peptide 89397 pg/ml (0-1800) Bedside Troponin I < 0.030 ng/ml (0-0.045) Laboratory results reviewed by me ECG Indication: other (abnormal labs) Rate (beats per minute): 83 Rhythm: other (atrial sensed ventricular paced rhythm) Findings: PAC, Q waves (Leads II, III, and aVF), other (slighlty widened QRS) Comparison ECG Date: 02/20/2015 Change: no significant change ED Course 2019: The patient was evaluated in room A4B. A complete history and physical exam was performed. 2131: I reevaluated the patient. Discussed results and discharge instructions: he verbalized understanding and agreement. The patient is ready for discharge. Medical Decision Differential diagnosis: Etiologies such as cardiac ischemia, aortic dissection, pulmonary embolism, pneumonia, pneumothorax, musculoskeletal, infections, pericarditis, myocarditis , esophageal rupture, gastrointestinal, as well as others were entertained. Patient was seen and evaluated at the bedside. Patient is very well-appearing has very trace lower extremity edema and has no physical complaints. Patient denies chest pain, shortness of breath, orthopnea, dyspnea on exertion. Patient was told to present to the ER and given concern for renal failure and or CHF. Patient did have an elevated BNP however the patient is asymptomatic. Patient's creatinine is 2.1 from baseline 1.9. Patient was told to continue his fluid and salt restrictions. 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 Patient chest x-ray fairly clear. Even though the patient's BNP is elevated given that the patient is very well-appearing has a negative troponin changes on EKG and fairly clear chest x-ray with a fairly normal physical exam within asymptomatic patient decision was made that the patient was safe for discharged home. Patient and family agreed with plan of care. Patient family were given strict follow-up, discharge, and return precautions. He agreed with plan of care and patient was safely discharged home. Medication Reconcilliation Current Medication List: was personally reviewed by me Blood Pressure Screening Patient's blood pressure: Elevated blood pressure Blood pressure disposition: Referred to PCP Impression Primary Impression: Elevated brain natriuretic peptide (BNP) level Additional Impression: Chronic CHF Scribe Attestation The scribe's documentation has been prepared under my direction and personally reviewed by me in its entirety. I confirm that the note above accurately reflects all work, treatment, procedures, and medical decision making performed by me. Departure Information Dispostion Home / Self-Care Referrals No Doctor, Assigned (PCP) Forms HOME CARE DOCUMENTATION FORM, IMPORTANT VISIT INFORMATION, WORK / SCHOOL INSTRUCTIONS Patient Instructions ED CHF General, [facility] Additional Instructions Please return to the emergency department if you have worsening or recurrent symptoms not amenable to at-home treatment. Please call for a follow-up appointment with her primary care physician. Please take your medications as prescribed. If you have other concerns and/or complaints please feel free to also call your primary care physician's office or return the ED for further evaluation, management, and treatment. You were found to have an elevated blood pressure today (>120 sytolic or >90 diastolic). Per medicare guidelines, you need to follow up with this blood pressure screening with your Primary Care Physician (PCP). For a new PCP call [phone]. You have been examined and treated today on an emergency basis only. This is not a substitute for, or an effort to provide, complete comprehensive medical care. It is impossible to recognize and treat all injuries or illnesses in a single emergency department visit. It is therefore important that you follow up closely with [facility]. Call as soon as possible for an appointment. Thank you for your time and consideration. I look forward to speaking with you again soon. Please don't hesitate to call us if you have any questions. Problem Qualifiers Additional Impression: Chronic CHF Congestive heart failure type: systolic Qualified Codes: I50.22 - Chronic systolic (congestive) heart failure
[2017-06-02] MEDS ORDERED: ASPI81TA28 PO (20:53)
[2017-06-02] MEDS ORDERED: CHOL4POW2 PO (20:53)
[2017-06-02] MEDS ORDERED: APR25 PO (20:53)
[2017-06-02] MEDS ORDERED: LSX20 PO (20:53)
[2017-06-02] MEDS ORDERED: CRG25 PO (20:53)
[2017-06-02] MEDS ORDERED: IMD/2 PO (20:54)
--- NOTE | 2017-06-02 21:03 | DIAGNOSTIC IMAGING REPORT ---
CHEST ONE VIEW PORTABLE CLINICAL HISTORY: 86 years-old Male presenting with h/o CHF, kidney failure. TECHNIQUE: Portable upright AP view of the chest was obtained. COMPARISON: 02/20/2015. FINDINGS: Left-sided pacer with leads to the right atrium, right ventricle, and coronary sinus. Atherosclerosis of aortic arch. Cardiac silhouette is not significantly enlarged. Mild prominence of pulmonary vasculature is stable from prior exam. Lungs and pleural spaces clear. Osseous structures normal. Upper abdomen normal. IMPRESSION: 1. Mild prominence of pulmonary vasculature without convincing evidence of pulmonary edema. Electronically signed by: Jose Durán M.D. 06/02/2017 9:02 PM Dictated Date/Time: 06/02/2017 9:00 PM
[2017-06-02 21:04] LABS: BASO % 0.3 %; BASO ABS # 0.03 K/uL (0-0.2); COMPLETE YES; EOS % 2.3 %; HEMATOCRIT 34.9 % (42-52); IG% 0.4 %; LYMPH % 21.7 %; LYMPH ABS # 1.97 K/uL (1.2-3.4); MEAN CELL VOLUME 100.9 fL (80-100); MEAN CORPUSCULAR HEMOGLOBIN 31.5 pg (25-34); MEAN CORPUSCULAR HGB CONC 31.2 g/dl (32-36); MEAN PLATELET VOLUME 9.7 fL (7.4-10.4); MONO % 8.7 %; NEUT % 66.6 %; PLATELET COUNT 218 K/uL (130-400); RED BLOOD COUNT 3.46 M/uL (4.7-6.1); WHITE BLOOD COUNT 9.09 K/uL (4.8-10.8)
[2017-06-02] MEDS ORDERED: CITA40TA4 PO (21:15)
[2017-06-02] MEDS ORDERED: OXGN (21:15)
[2017-06-02 21:22] LABS: BUN/CREATININE RATIO 28.6 (10-20); CALCIUM 8.5 mg/dl (8.5-10.1); CREATININE 2.1 mg/dl (0.60-1.40); MAGNESIUM 2.5 mg/dl (1.8-2.4); POTASSIUM 4.5 mmol/L (3.5-5.1)
[2017-06-02 22:04] VITALS: BP 161/65; PULSE 75; O2SAT 93
== END 2017-06-02 22:14 | disposition home or self-care (01) ==
LOC: C.EDB 18:43 → C.EDA 22:14
DX: R78.89 Finding of other specified substances, not normally found in blood (principal); I50.9 Heart failure, unspecified; I48.91 Unspecified atrial fibrillation; I10 Essential (primary) hypertension; E78.5 Hyperlipidemia, unspecified; J44.9 Chronic obstructive pulmonary disease, unspecified; I73.9 Peripheral vascular disease, unspecified; F41.8 Other specified anxiety disorders; Z95.0 Presence of cardiac pacemaker; Z98.61 Coronary angioplasty status; Z79.82 Long term (current) use of aspirin; Z79.899 Other long term (current) drug therapy; Z87.891 Personal history of nicotine dependence

== ENCOUNTER 2017-06-28 16:23 | Inpatient (IN) | payer OTHER, MEDICARE ==
[~2017-06-28] VITALS: Ht 160 cm; Wt 73.0 kg
[~2017-06-28 16:23] MED LIST changes: +APR25 PO; -ASPI-232 PO; +ASPI81TA28 PO; -CARV25TA PO; +CHOL4POW2 PO; +CITA40TA4 PO; +CRG25 PO; -FURO40TA3 PO; +IMD/2 PO; -IMD2X PO; -LOSA1TAB PO; +LSX20 PO; +OXGN; -QSTP PO
[2017-06-28] MEDS ORDERED: NITROGLYCERIN OINT 2% 1GM PACKET EXT STA (17:00)
--- NOTE | 2017-06-28 17:05 | EMERGENCY ROOM VISIT NOTE ---
History Report prepared by Beatriz: Donavon Gotti Under the Supervision of: Dr. Jay Tran M.D. First contact with patient: 16:54 Chief Complaint: CARDIAC ASSESSMENT Stated Complaint: CHF History of Present Illness The patient is a 86 year old male who presents to the Emergency Room with complaints of shortness of breath that began today. He has a past medical history of CHF. Over the past couple of days, the patient noticed that he has been gaining weight. His abdomen and legs are more swollen than usual. He usually only needs oxygen at night while he sleeps, but needed it during the day today secondary to his shortness of breath. As long as he is elevated during the night, he is able to sleep. His oxygen saturation in triage was 84% on room air. He notes a mild cough as well. He regularly takes Lasix and has been recently altering his dosages with his PCP for his fluid gain. He denies any fevers. Source of History: patient Onset: today Position: other (Respiratory System) Symptom Intensity: O2Sat of 84% Quality: other (Shortness of breath) Timing: constant Associated Symptoms: + cough, No fevers Note: He is having swelling to his abdomen and lower extremities. Review of Systems See HPI for pertinent positives & negatives. A total of 10 systems reviewed and were otherwise negative. Past Medical & Surgical Medical Problems: (1) Anxiety/depression (2) Atrial fibrillation (3) chf exac (4) COPD (chronic obstructive pulmonary disease) (5) Diarrhea (6) History of heart-block status post dual-chambered pacemaker in 2001 (7) Hyperlipidemia (8) Hypertension (9) Mild MR, trace AI, mild TR, and mild aortic stenosis (10) Mild pulmonary hypertension (11) Peripheral vascular disease/carotid artery diseas Surgical Problems: (1) Right carotid endarterectomy with bovine patch angioplasty Family History No pertinent family history Social History Smoking Status: Never Smoker Drug Use: none Marital Status: Housing Status: lives with significant other Occupation Status: retired Current/Historical Medications Scheduled Aspirin (Aspirin Ec), 81 MG PO HS Carvedilol (Carvedilol), 25 MG PO BID Cholecalciferol (Vitamin D), 400 INTER.UNIT PO DAILY Citalopram (Citalopram Hydrobromide), 40 MG PO HS Cyanocobalamin (Vitamin B12 100 Mcg), 100 MCG PO DAILY Ferrous Sulfate (Iron), 325 MG PO TID Furosemide (Lasix), 40 MG PO 3XWK Furosemide (Furosemide), 20 MG PO 4XWK Home O2 Therapy (Oxygen), 2 LITERS NA HS Hydralazine Hcl (Apresoline), 25 MG PO BID Multiple Vitamin (Multivitamin), 1 TAB PO DAILY Scheduled PRN Cholestyramine Light (Questran Powder Light), 4 GM PO BID PRN for Diarrhea Loperamide Hcl (Imodium), 2 MG PO Q8 PRN for Diarrhea Allergies Coded Allergies: No Known Allergies (Verified , 06/28/17) Physical Exam Vital Signs Date Time Temp Pulse Resp B/P (MAP) Pulse Ox O2 Delivery O2 Flow Rate FiO2 06/28/17 18:38 75 18 199/90 96 Nasal Cannula 4.0 06/28/17 17:57 72 18 189/77 97 Nasal Cannula 06/28/17 17:53 97 Nasal Cannula 4.0 06/28/17 17:17 74 06/28/17 16:57 84 Room Air 06/28/17 16:57 84 Room Air 06/28/17 16:56 96 Nasal Cannula 4.0 06/28/17 16:47 36.7 76 18 187/67 88 Room Air Physical Exam GENERAL: Patient is in no acute distress. HEENT: No acute trauma, normocephalic atraumatic, mucous membranes moist, no nasal congestion, no scleral icterus. NECK: No stridor, no adenopathy, no meningismus, trachea is midline. LUNGS: Crackles to the bilateral bases. Diminished breath sounds on the left. No wheezing appreciated to auscultation. HEART: 3/6 systolic murmur. Regular rate and rhythm. ABDOMEN: Soft, nontender, bowel sounds positive, no hernias, no peritonitis. EXTREMITIES: No cyanosis, moderate bilateral pedal edema, full range of motion of all the joints without pain or difficulty, no signs for acute trauma. NEUROLOGIC: Oriented x 3, no acute motor or sensory deficits, no focal weakness. SKIN: No rash, no jaundice, no diaphoresis. Medical Decision & Procedures ER Provider Diagnostic Interpretation: Radiology results as stated below per my review and radiologist interpretation: CHEST ONE VIEW PORTABLE CLINICAL HISTORY: Respiratory distress COMPARISON STUDY: 06/02/2017 FINDINGS: The heart is enlarged. There is a left subclavian dual-chamber central venous pacemaker. There is mild pulmonary vascular congestion. There are bilateral pleural effusions left greater than right. There are nonspecific basal airspace opacities likely representing compressive atelectasis. A superimposed inflammatory process could appear similar.[ IMPRESSION: 1. Cardiomegaly and radiographic evidence of mild congestive failure/fluid overload 2. Bilateral pleural effusions left greater than right with associated bibasal airspace opacities Electronically signed by: Juan Murdock M.D. 06/28/2017 5:19 PM Dictated Date/Time: 06/28/2017 5:18 PM Laboratory Results 06/28/17 17:10 Red Blood Count 3.55, Mean Corpuscular Volume 103.9, Mean Corpuscular Hemoglobin 33.0, Mean Corpuscular Hemoglobin Concent 31.7, Mean Platelet Volume 10.2, Neutrophils (%) (Auto) 70.8, Lymphocytes (%) (Auto) 18.2, Monocytes (%) ( Auto) 7.8, Eosinophils (%) (Auto) 2.5, Basophils (%) (Auto) 0.3, Neutrophils # ( Auto) 7.43, Lymphocytes # (Auto) 1.91, Monocytes # (Auto) 0.82, Eosinophils # ( Auto) 0.26, Basophils # (Auto) 0.03 06/28/17 17:10 Test 06/28/17 17:10 06/28/17 18:48 06/28/17 18:56 White Blood Count 10.49 K/uL (4.8-10.8) Red Blood Count 3.55 M/uL (4.7-6.1) Hemoglobin 11.7 g/dL (14.0-18.0) Hematocrit 36.9 % (42-52) Mean Corpuscular Volume 103.9 fL (80-100) Mean Corpuscular Hemoglobin 33.0 pg (25-34) Mean Corpuscular Hemoglobin Concent 31.7 g/dl (32-36) Platelet Count 245 K/uL (130-400) Mean Platelet Volume 10.2 fL (7.4-10.4) Neutrophils (%) (Auto) 70.8 % Lymphocytes (%) (Auto) 18.2 % Monocytes (%) (Auto) 7.8 % Eosinophils (%) (Auto) 2.5 % Basophils (%) (Auto) 0.3 % Neutrophils # (Auto) 7.43 K/uL (1.4-6.5) Lymphocytes # (Auto) 1.91 K/uL (1.2-3.4) Monocytes # (Auto) 0.82 K/uL (0.11-0.59) Eosinophils # (Auto) 0.26 K/uL (0-0.5) Basophils # (Auto) 0.03 K/uL (0-0.2) RDW Standard Deviation 54.9 fL (36.4-46.3) RDW Coefficient of Variation 14.3 % (11.5-14.5) Immature Granulocyte % (Auto) 0.4 % Immature Granulocyte # (Auto) 0.04 K/uL (0.00-0.02) Prothrombin Time 10.4 SECONDS (9.0-12.0) Prothromb Time International Ratio 1.0 (0.9-1.1) Activated Partial Thromboplast Time 24.8 SECONDS (21.0-31.0) Partial Thromboplastin Ratio 1.0 Anion Gap 6.0 mmol/L (3-11) Est Creatinine Clear Calc Drug Dose 27.2 ml/min Estimated GFR () 40.5 Estimated GFR (Non- 35.0 BUN/Creatinine Ratio 28.6 (10-20) Calcium Level 9.0 mg/dl (8.5-10.1) Magnesium Level 2.3 mg/dl (1.8-2.4) Total Bilirubin 0.5 mg/dl (0.2-1) Aspartate Amino Transf (AST/SGOT) 14 U/L (15-37) Alanine Aminotransferase (ALT/SGPT) 17 U/L (12-78) Alkaline Phosphatase 49 U/L (45-117) Troponin I 0.033 ng/ml (0-0.045) Total Protein 7.2 gm/dl (6.4-8.2) Albumin 3.6 gm/dl (3.4-5.0) Globulin 3.6 gm/dl (2.5-4.0) Albumin/Globulin Ratio 1.0 (0.9-2) Laboratory results reviewed by me. Medications Administered Medications (Trade) Dose Ordered Sig/Kaya Route Start Time Stop Time Status Last Admin Dose Admin Nitroglycerin (Nitroglycerin 2% Oint) 1 inch NOW STAT EXT 06/28/17 17:00 06/28/17 17:03 DC 06/28/17 17:12 1 INCH Bumetanide (Bumex IV) 1 mg NOW STAT IV 06/28/17 17:44 06/28/17 17:45 DC 06/28/17 18:06 1 MG ECG Indication: SOB/dyspnea Rate (beats per minute): 72 Rhythm: other (Ventricular Pacemaker) Findings: no acute ischemic change, no ectopy ED Course 1653: The patient was evaluated in room C10. A complete history and physical exam was performed. 1700: Ordered Nitroglycerin 1 inch EXT 1743: Ordered Bumetanide 1 mg IV 1745: Upon reexamination the patient is resting. I discussed results and treatment plan with the patient. He verbalizes agreement and understanding. The patient will be evaluated by Dr. Margarita JAMES, for further management. Medical Decision Differential diagnosis includes but is not limited to fluid overload, CHF, renal failure, electrolyte imbalance, anemia, [place], and pneumonia. There is no leukocytosis or concerning anemia. There was renal insufficiency noted but this appears baseline, no significant electrolyte abnormality requiring correction. No hepatitis or coagulopathy. EKG showed a paced rhythm , no acute ischemic change. Cardiac enzyme testing 1 is not consistent with acute cardiac injury. Chest x-ray shows CHF with pleural effusions, the left pleural effusion was larger than the right. BNP was elevated consistent with fluid overload. The patient was given Nitropaste, he received IV Bumex. He was given supplemental O2. The patient presents hypoxic. He does require O2 supplementation to keep his saturation adequate. He is in heart failure with pleural effusions, admission/ observation is warranted. I spoke to the patient and case management. The on- call hospitalist was consulted. Medication Reconcilliation Current Medication List: was personally reviewed by me Blood Pressure Screening Patient's blood pressure: Elevated blood pressure Blood pressure disposition: Elevated BP felt to be situational Consults Time Called: 1739 Consulting Physician: Dr. Margarita JAMES Returned Call: 1745 Discussed the patient's case. The patient will be evaluated for further management. Impression Primary Impression: Hypoxia Additional Impressions: CHF (congestive heart failure) Pleural effusion Scribe Attestation The scribe's documentation has been prepared under my direction and personally reviewed by me in its entirety. I confirm that the note above accurately reflects all work, treatment, procedures, and medical decision making performed by me. Departure Information Dispostion Being Evaluated By Hospitalist Referrals No Doctor, Assigned (PCP) Patient Instructions [facility] Problem Qualifiers Additional Impressions: CHF (congestive heart failure) Congestive heart failure type: unspecified congestive heart failure type Congestive heart failure chronicity: unspecified congestive heart failure chronicity Qualified Codes: I50.9 - Heart failure, unspecified
[2017-06-28 17:17] LABS: BASO % 0.3 %; BASO ABS # 0.03 K/uL (0-0.2); COMPLETE YES; EOS % 2.5 %; HEMATOCRIT 36.9 % (42-52); IG% 0.4 %; LYMPH % 18.2 %; LYMPH ABS # 1.91 K/uL (1.2-3.4); MEAN CELL VOLUME 103.9 fL (80-100); MEAN CORPUSCULAR HGB CONC 31.7 g/dl (32-36); MEAN PLATELET VOLUME 10.2 fL (7.4-10.4); MONO % 7.8 %; NEUT % 70.8 %; PLATELET COUNT 245 K/uL (130-400); RED BLOOD COUNT 3.55 M/uL (4.7-6.1); WHITE BLOOD COUNT 10.49 K/uL (4.8-10.8)
--- NOTE | 2017-06-28 17:20 | DIAGNOSTIC IMAGING REPORT ---
CHEST ONE VIEW PORTABLE CLINICAL HISTORY: Respiratory distress COMPARISON STUDY: 06/02/2017 FINDINGS: The heart is enlarged. There is a left subclavian dual-chamber central venous pacemaker. There is mild pulmonary vascular congestion. There are bilateral pleural effusions left greater than right. There are nonspecific basal airspace opacities likely representing compressive atelectasis. A superimposed inflammatory process could appear similar.[ IMPRESSION: 1. Cardiomegaly and radiographic evidence of mild congestive failure/fluid overload 2. Bilateral pleural effusions left greater than right with associated bibasal airspace opacities Electronically signed by: Juan Murdock M.D. 06/28/2017 5:19 PM Dictated Date/Time: 06/28/2017 5:18 PM
[2017-06-28 17:26] LABS: PROTHROMBIN TIME (PATIENT) 10.4 SECONDS (9.0-12.0)
[2017-06-28 17:36] LABS: BUN/CREATININE RATIO 28.6 (10-20); CREATININE 1.72 mg/dl (0.60-1.40); MAGNESIUM 2.3 mg/dl (1.8-2.4); POTASSIUM 4.3 mmol/L (3.5-5.1)
[2017-06-28] MEDS ORDERED: FERR1TAB23 PO (17:42)
[2017-06-28] MEDS ORDERED: BUMETANIDE SOLN 1 MG/4 ML VIAL IV STA (17:44)
[2017-06-28] MEDS ORDERED: ACETAMINOPHEN 325 MG TAB PO PRN (19:00)
[2017-06-28] MEDS ORDERED: ALUMINUM/MAGNESIUM/SIMETH (MAALOX MAX) 30 ML UDC PO PRN (19:00)
[2017-06-28] MEDS ORDERED: BUMETANIDE SOLN 1 MG/4 ML VIAL IV ONE (19:00)
[2017-06-28] MEDS ORDERED: ONDANSETRON INJ 2 MG/ML 2 ML VIAL IV PRN (19:00)
[2017-06-28] MEDS ORDERED: ZOLPIDEM TARTRATE 5 MG TAB PO PRN (19:00)
[2017-06-28] MEDS ORDERED: POLYETHYLENE (MIRALAX) 17 GM PACK PO PRN (19:00)
[2017-06-28] MEDS ORDERED: MAGNESIUM HYDROXIDE SUSP 30 ML UDC PO PRN (19:00)
--- NOTE | 2017-06-28 19:12 | History and Physical ---
History & Physical Date of Service Jun 28, 2017. History & Physical [id number], chf exac
[2017-06-28 20:06] LABS: THYROID STIMULATING HORMONE 1.25 uIu/ml (0.300-4.500)
--- NOTE | 2017-06-28 20:09 | HISTORY & PHYSICAL EXAMINATION ---
DATE OF ADMISSION: 06/28/2017 This is level 3 inpatient admission, 40 minutes. HISTORY OF PRESENT ILLNESS: The patient is an 86-year-old white male with a significant past medical history of both diastolic and systolic CHF, anxiety, AFib, COPD, diarrhea, has a history of dyslipidemia, pulmonary hypertension, peripheral artery disease, carotid artery disease, history of right carotid endarterectomy, coming to the hospital Emergency Room because of the above chief complaint. The patient reports of gaining weight about 14 pounds associated with lower extremity swelling and abdomen swelling. Usually he only needs oxygen at nighttime, but he needs at daytime now associated with dyspnea on exertion. At nighttime, he need to have elevated to have better sleep. In triage, his oxygen level was 84% on room air associated with mild cough and wheezing. In the Emergency Room, the patient was evaluated, and oxygen level was improved. He was found to have CHF exacerbation, both supported by the lab studies and x-ray. I was called to do an admission. When I interviewed the patient, he confirmed me the above information as he is awake, alert, and orientated. No obvious difficulty breathing, but there was some wheezing. Denied chest pain, palpitation, denies sputum or cough up blood. But he has some wet cough and wheezing. Denied nausea, vomiting, abdominal pain, diarrhea, or constipation. Denied dysuria, urgency and frequencies. Denied fever and chills. Denied facial droop, slurry speeches or local weakness. Denies skin rashes. PAST MEDICAL HISTORY: Like I mentioned in the above. PAST SURGICAL HISTORY: Like I mentioned in the above. FAMILY HISTORY: Noncontributory. SOCIAL HISTORY: Never smoked. Denied alcohol abuse disorder, denied illicit drug abuse. The patient lives with . was at the bedside. REVIEW OF SYSTEMS: Please see HPI, otherwise 14 points organ system review were negative. CURRENT MEDICATIONS: Include, aspirin 81 mg p.o. daily, Coreg 25 mg p.o. b.i.d., vitamin D 400 international units p.o. daily, citalopram 40 mg p.o. at bedtime, vitamin B12 100 mcg p.o. daily, ferrous sulfate 325 mg p.o. t.i.d., Lasix 40 mg p.o. three times per week and 20 mg p.o. four times per week, home O2 two liters at nighttime, hydralazine 25 mg p.o. b.i.d., multiple vitamin 1 tab p.o. daily, Questran powder 4 grams p.o. p.r.n. for diarrhea, Imodium 2 mg p.o. q. 8 hours p.r.n. for the diarrhea. ALLERGIES: No known drug allergies. PHYSICAL EXAMINATION: VITAL SIGNS: Temperature is 36, pulse 78, respiration rate 18, blood pressure was 187/67. Pulse ox was 88% on room air, improved to 96% after 4 liters. GENERAL: No acute distress. HEAD: Normocephalic. EYES: Pupils equal, round responds to light. EARS: Ear was normal. NOSE: Normal. NECK: Supple. Thyroid no enlargement. LUNGS: Having crackles, bilateral lung, there was sporadic wheezing. HEART: Regular rhythm, 3/6 systolic murmur. ABDOMEN: Soft, nontender. Bowel sound was positive. EXTREMITIES: Lower extremities has bilateral edema 2+, full range of motion. There was no clubbing, no cyanosis. NEUROLOGICAL EVALUATION: Cranial nerve II-XII was intact. There were no local deficits. SKIN: Has no rashes. LABORATORY STUDIES: WBC 10, hemoglobin 11, platelet 245. BUN 49, creatinine 1.7. Blood glucose 120. Sodium 140, potassium 4.3. IMAGING STUDIES: 1. Chest x-ray shows cardiomegaly. There was a congesting fluid, bilateral pleural effusions, left more than right. 2. EKG in the Emergency Room was not noted in the computer. I will double check. 3. EKG shows no acute ischemic changes. Heart rate at 72 beats per minute. ASSESSMENT AND PLAN: An 86-year-old white male with the conditions as below: 1. Acute on chronic diastolic and systolic heart failure. 2. Diffuse wheezing with history of chronic obstructive pulmonary disease. 3. Accelerated hypertension. 4. History of atrial fibrillation. 5. History of dyslipidemia. 6. History of pulmonary hypertension. 7. History of peripheral vascular disease and history of right carotid endarterectomy. 8. History of chronic kidney disease. BUN and creatinine is in the best at the baseline. PLAN: In the Emergency Room, the patient got a nitroglycerin patch x1 and 1 mg of IV Bumex. 1. We will admit to tele, CHF protocol, tele monitor, Bumex another dose now 1 mg and continue 1 mg IV daily. Check renal function and electrolytes tomorrow. Fluid limit to 1.5 oral daily. 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 Howell has requested consultation. Continue beta jose elias. 2. For accelerated hypertension, continue home medications and make hydralazine as needed. Check TSH. The patient has pleural effusion that may need to have 2 view chest x-ray to further define if needed paracentesis to remove fluid or not. 3. I discussed with patient and about the patient's condition and care plan. I answered all the questions. The patient is do not resuscitation patient. PT, OT and tomorrow morning lab was ordered. MTDD
[2017-06-28] MEDS ORDERED: CARVEDILOL 25 MG TAB PO ONE (20:30)
[2017-06-28] MEDS ORDERED: CHOLESTYRAMINE LIGHT 4 GM PKT PO PRN (21:00)
[2017-06-28] MEDS ORDERED: CARVEDILOL 25 MG TAB PO SCH (21:00)
[2017-06-28] MEDS ORDERED: PRED10TA PO (21:08)
[2017-06-28] MEDS: ALBUT/IPRATROP 3MG/0.5MG NEB 3 ML VIAL INH SCH (21:44)
[2017-06-28 21:45] VITALS: PULSE 80; O2SAT 90
[2017-06-28 22:00] VITALS: BP 206/79; PULSE 78; TEMP 36.8; O2SAT 94; Ht 160 cm; Wt 73.0 kg
[2017-06-28 22:15] VITALS: BP 196/80; PULSE 74
[2017-06-28] MEDS: HEPARIN SOD 5000 UNIT/0.5 ML CARP SQ SCH (22:48)
[2017-06-28] MEDS: CITALOPRAM 40 MG TAB PO SCH (23:05)
[2017-06-28] MEDS: ASPIRIN 81 MG ECTAB PO SCH (23:05)
[2017-06-28 23:19] VITALS: BP 196/74; PULSE 71; TEMP 36.6; O2SAT 91
[2017-06-29] VITALS (11 sets, daily range): BP systolic 116–196; BP diastolic 49–78; PULSE 60–76; TEMP 36.7–36.9; O2SAT 90–96
[2017-06-29] MEDS ORDERED: METOPROLOL TARTRATE 1 MG/ML VIAL IV PRN (00:30)
[2017-06-29] MEDS ORDERED: HydrALAZINE HCL 20 MG/ML VIAL IV. PRN (00:30)
[2017-06-29 01:22] LABS: CKMB/CK RATIO 6.4 (0-3.0)
[2017-06-29] MEDS: CHOLECALCIFEROL 400 INTER.UNIT TAB PO SCH (07:26)
[2017-06-29] MEDS: CYANOCOBALAMIN 100 MCG TAB (VIT B-12) PO SCH (07:27)
[2017-06-29] MEDS: MULTIVITAMIN TAB PO SCH (07:27)
[2017-06-29] MEDS: FERROUS SULFATE 325 MG TAB PO SCH ×3 (07:28→16:22)
[2017-06-29] MEDS: ALBUT/IPRATROP 3MG/0.5MG NEB 3 ML VIAL INH SCH ×4 (07:29→19:23)
[2017-06-29] MEDS: CARVEDILOL 25 MG TAB PO SCH ×2 (07:30→20:00)
[2017-06-29 07:31] LABS: BUN/CREATININE RATIO 28.8 (10-20); CREATININE 1.62 mg/dl (0.60-1.40); MAGNESIUM 2.2 mg/dl (1.8-2.4); POTASSIUM 4.1 mmol/L (3.5-5.1)
[2017-06-29 07:32] LABS: PHOSPHORUS 3.4 mg/dl (2.5-4.9)
[2017-06-29] MEDS: HEPARIN SOD 5000 UNIT/0.5 ML CARP SQ SCH ×2 (07:37→20:02)
[2017-06-29] MEDS ORDERED: BUMETANIDE IV 1 MG in SYRINGE 0 ML IV SCH (09:00)
[2017-06-29 10:01] LABS: CKMB/CK RATIO 5.3 (0-3.0)
--- NOTE | 2017-06-29 10:51 | DIAGNOSTIC IMAGING REPORT ---
CHEST ONE VIEW PORTABLE CLINICAL HISTORY: CHF dyspnea COMPARISON STUDY: 06/28/2017 FINDINGS: Persistent left and to lesser extent right pleural effusion. Mild bibasilar parenchymal infiltrative change considered stable. Components mild congestive failure slightly progressive. Bipolar cardiac pacemaker in good position. IMPRESSION: Mild congestive failure slightly progressive from the prior exam. 2. Left and to a lesser extent right pleural effusion stable to minimally progressive. The above report was generated using voice recognition software. It may contain grammatical, syntax or spelling errors. Electronically signed by: Daren Persaud M.D. 06/29/2017 10:50 AM Dictated Date/Time: 06/29/2017 10:49 AM
--- NOTE | 2017-06-29 12:08 | Clinical Documentation Query ---
CLINICAL DOCUMENTATION QUERY Dr. MORENO, In your clinical opinion is this patient being managed for: ( x ) Chronic kidney disease, stage 3 ( ) Not Agree ( ) Other explanation of clinical findings (Please Explain) ( ) Unable to determine (Please Define) ( ) Need to Discuss The medical record reflects the following clinical findings, treatment, and risk factors. Clinical Indicators: 86 yo male presenting in acute CHF with documentation reflection pt has hx of CKD and that current labs appear to be baseline. GFR range of 31-37 when not in acute renal failure Treatment: monitor PRP's, treat comorbid diseases Risk Factors: acute and chronic systolic and diastolic CHF, A fib, COPD, HTN, pulmonary HTN, PAD Please clarify and document your clinical opinion in the progress notes and discharge summary. Terms such as "probable", "suspected", "likely", "questionable", "possible", or "still to be ruled out" are acceptable. IF IN AGREEMENT, YOU MUST DOCUMENT ABOVE DIAGNOSTIC STATEMENT IN DAILY PROGRESS NOTES AND DISCHARGE SUMMARY. This document is not part of the patient's record. Thank You, Daniela Osuna, RN [phone]
--- NOTE | 2017-06-29 13:22 | Medical Student: [facility] ---
Med Student History & Physical Date & Time of Service: Jun 29, 2017 at 12:45 Chief Complaint: Acute Exacerbation Of Chf, Hypoxia Primary Care Physician: Ananda Vazquez PA-C History of Present Illness Source: patient Mr. Guevara is an 86 yo male with past medical history notable for diastolic & systolic heart failure, COPD, pulmonary hypertension, and carotid arterial disease who presented following a day of shortness of breath, dyspnea on exertion, increased oxygen demand, and bilateral leg swelling. He notes having about 16 lb weight gain over the past few months. Usually uses O2 only at night , but on the day of admission, required it during the day. Denies chest pain, n/ v/d, constipation, fever, and chills. Initial BNP was 20,921. Troponin and CK- MB negative. CXR consistent with pleural effusions and cardiomegaly. Past Medical/Surgical History Medical Problems: (1) Acute kidney injury Status: Acute (2) CHF (congestive heart failure) Status: Acute (3) Chronic CHF Status: Acute (4) Elevated brain natriuretic peptide (BNP) level Status: Acute (5) Hypoxia Status: Acute (6) Pleural effusion Status: Acute (7) Peripheral arterial disease Status: chronic Surgical History: B/L carotid endarterectomies 2012 Family History Father: heart disease Sibling(s): diabetes Social History Smoking Status: Former Smoker (quit 25-30 years ago, previously 20 pack year) Smokeless Tobacco Use: No Alcohol Use: none Drug Use: none Marital Status: Housing status: lives with family Occupational Status: retired Immunizations History of Influenza Vaccine: Unknown Influenza Vaccine Date: Jun 16, 2011 History of Tetanus Vaccine?: Unknown History of Pneumococcal: Unknown Pneumococcal Date: January 14, 2011 History of Hepatitis B Vaccine: Unknown Allergies Coded Allergies: No Known Allergies (Verified , 06/28/17) Medications Aspirin (Aspirin Ec), 81 MG PO HS Carvedilol (Carvedilol), 25 MG PO BID Cholecalciferol (Vitamin D), 400 INTER.UNIT PO DAILY Cholestyramine Light (Questran Powder Light), 4 GM PO BID PRN for Diarrhea Citalopram (Citalopram Hydrobromide), 40 MG PO HS Cyanocobalamin (Vitamin B12 100 Mcg), 100 MCG PO DAILY Ferrous Sulfate (Iron), 325 MG PO TID Furosemide (Lasix), 40 MG PO 3XWK Furosemide (Furosemide), 20 MG PO 4XWK Home O2 Therapy (Oxygen), 2 LITERS NA HS Hydralazine Hcl (Apresoline), 25 MG PO BID Loperamide Hcl (Imodium), 2 MG PO Q8 PRN for Diarrhea Multiple Vitamin (Multivitamin), 1 TAB PO DAILY Prednisone Tab (Prednisone), 10 MG PO Q2D Review of Systems Constitutional: + weakness, No fever, No chills, No sweats, No weight loss, No fatigue, No problem reported Eyes: No worsening of vision, No eye pain, No redness, No discharge, No problem reported ENT: No hearing loss, No unusual epistaxis, No nasal symptoms, No sore throat, No trouble swallowing, No problem reported Respiratory: + cough, + wheezing, + shortness of breath, + dyspnea on exertion , + dyspnea at rest, No sputum, No hemoptysis Cardiovascular: + edema, No chest pain, No orthopnea, No PND, No claudication, No palpitations Abdomen: + diarrhea (Mentions 6 months of watery, non-bloody diarrhea), No pain , No nausea, No vomiting, No constipation, No GI bleeding, No problem reported Musculoskeletal: + swelling, No joint pain, No muscle pain, No calf pain, No problem reported Genitourinary - Male: No hematuria, No dysuria, No urinary frequency, No urinary urgency, No urinary hesitancy, No urinary retention, No urinary incontinence, No problem reported Neurologic: + weakness, + numbness/tingling (Periodically experiences weakness and numbness in left shoulder muscles. Has become less frequent lately), No paralysis, No vertigo Psychiatric: + anxiety, No depression symptoms, No insomnia Hematologic / Lymphatic: No abnormal bleeding/bruising, No night sweats Physical Exam Vital Signs (24 Hours) Date Time Temp Pulse Resp B/P (MAP) Pulse Ox O2 Delivery O2 Flow Rate FiO2 06/29/17 12:01 Nasal Cannula 3.5 06/29/17 11:30 36.8 65 18 166/70 (102) 92 2.0 06/29/17 11:28 65 18 93 Nasal Cannula 2.0 06/29/17 10:02 36.8 60 18 157/67 (97) 91 06/29/17 07:38 36.8 69 18 196/78 (117) 93 3.0 06/29/17 07:38 76 18 96 Nasal Cannula 2.0 06/29/17 07:30 Nasal Cannula 3.5 06/29/17 04:00 Nasal Cannula 3.5 06/29/17 03:08 36.8 73 19 174/77 (109) 93 Nasal Cannula 3.5 06/29/17 01:35 177/53 (94) 06/29/17 00:38 72 06/29/17 00:02 Nasal Cannula 3.5 06/28/17 23:19 36.6 71 19 196/74 (114) 91 Nasal Cannula 3.5 06/28/17 22:15 74 196/80 (118) 06/28/17 22:00 36.8 78 20 206/79 94 Nasal Cannula 2.0 06/28/17 21:45 80 20 90 Nasal Cannula 2.0 06/28/17 21:29 36.7 75 18 190/102 98 06/28/17 20:19 78 18 193/107 98 Nasal Cannula 4.0 06/28/17 18:38 75 18 199/90 96 Nasal Cannula 4.0 06/28/17 17:57 72 18 189/77 97 Nasal Cannula 06/28/17 17:53 97 Nasal Cannula 4.0 06/28/17 17:17 74 06/28/17 16:57 84 Room Air 06/28/17 16:57 84 Room Air 06/28/17 16:56 96 Nasal Cannula 4.0 06/28/17 16:47 36.7 76 18 187/67 88 Room Air General Appearance: WD/WN, no apparent distress Head: normocephalic, atraumatic ENT: hearing grossly normal Neck: supple, no adenopathy, no JVD, trachea midline, + pertinent finding ( Bilateral carotid bruits) Respiratory/Chest: chest non-tender, no respiratory distress, no accessory muscle use, + crackles (greatest in the bases), + wheezing (expiratory, diffuse through lungs) Cardiovascular: regular rate, rhythm, no gallop, no JVD, normal peripheral pulses, + systolic murmur (holosystolic, grade 2/6 murmur heard diffusely throughout chest without radiation up the carotids. Loudest over the aortic and mitral valve.) Abdomen/GI: normal bowel sounds, non tender, soft, no pulsatile mass Extremities/Musculoskelatal: + pedal edema (mild pitting edema to the level of the mid shins bilaterally) Neurologic/Psych: alert, normal mood/affect Diagnostics Laboratory Results Results Past 24 Hours Test 06/28/17 17:10 06/28/17 19:30 06/29/17 00:46 06/29/17 06:32 Range/Units White Blood Count 10.49 4.8-10.8 K/uL Red Blood Count 3.55 4.7-6.1 M/uL Hemoglobin 11.7 14.0-18.0 g/dL Hematocrit 36.9 42-52 % Mean Corpuscular Volume 103.9 80-100 fL Mean Corpuscular Hemoglobin 33.0 25-34 pg Mean Corpuscular Hemoglobin Concent 31.7 32-36 g/dl Platelet Count 245 130-400 K/uL Mean Platelet Volume 10.2 7.4-10.4 fL Neutrophils (%) (Auto) 70.8 % Lymphocytes (%) (Auto) 18.2 % Monocytes (%) (Auto) 7.8 % Eosinophils (%) (Auto) 2.5 % Basophils (%) (Auto) 0.3 % Neutrophils # (Auto) 7.43 1.4-6.5 K/uL Lymphocytes # (Auto) 1.91 1.2-3.4 K/uL Monocytes # (Auto) 0.82 0.11-0.59 K/uL Eosinophils # (Auto) 0.26 0-0.5 K/uL Basophils # (Auto) 0.03 0-0.2 K/uL RDW Standard Deviation 54.9 36.4-46.3 fL RDW Coefficient of Variation 14.3 11.5-14.5 % Immature Granulocyte % (Auto) 0.4 % Immature Granulocyte # (Auto) 0.04 0.00-0.02 K/uL Prothrombin Time 10.4 9.0-12.0 SECONDS Prothromb Time International Ratio 1.0 0.9-1.1 Activated Partial Thromboplast Time 24.8 21.0-31.0 SECONDS Partial Thromboplastin Ratio 1.0 Sodium Level 141 141 136-145 mmol/L Potassium Level 4.3 4.1 3.5-5.1 mmol/L Chloride Level 104 104 98-107 mmol/L Carbon Dioxide Level 32 32 21-32 mmol/L Anion Gap 6.0 5.0 3-11 mmol/L Blood Urea Nitrogen 49 47 7-18 mg/dl Creatinine 1.72 1.62 0.60-1.40 mg/dl Est Creatinine Clear Calc Drug Dose 27.2 29.0 ml/min Estimated GFR () 40.5 43.6 Estimated GFR (Non- 35.0 37.6 BUN/Creatinine Ratio 28.6 28.8 10-20 Random Glucose 120 93 70-99 mg/dl Calcium Level 9.0 9.0 8.5-10.1 mg/dl Magnesium Level 2.3 2.2 1.8-2.4 mg/dl Total Bilirubin 0.5 0.2-1 mg/dl Aspartate Amino Transf (AST/SGOT) 14 15-37 U/L Alanine Aminotransferase (ALT/SGPT) 17 12-78 U/L Alkaline Phosphatase 49 45-117 U/L Troponin I 0.033 0.034 0-0.045 ng/ml Pro-B-Type Natriuretic Peptide 40950 08786 0-1800 pg/ml Total Protein 7.2 6.4-8.2 gm/dl Albumin 3.6 3.4-5.0 gm/dl Globulin 3.6 2.5-4.0 gm/dl Albumin/Globulin Ratio 1.0 0.9-2 Thyroid Stimulating Hormone (TSH) 1.250 0.300-4.500 uIu/ml Total Creatine Kinase 33 39-308 U/L Creatine Kinase MB 2.1 0.5-3.6 ng/ml Creatine Kinase MB Ratio 6.4 0-3.0 Phosphorus Level 3.4 2.5-4.9 mg/dl Test 06/29/17 09:20 Range/Units Total Creatine Kinase 32 39-308 U/L Creatine Kinase MB 1.7 0.5-3.6 ng/ml Creatine Kinase MB Ratio 5.3 0-3.0 Troponin I 0.033 0-0.045 ng/ml Diagnostic Radiology CHEST ONE VIEW PORTABLE CLINICAL HISTORY: Respiratory distress COMPARISON STUDY: 06/02/2017 FINDINGS: The heart is enlarged. There is a left subclavian dual-chamber central venous pacemaker. There is mild pulmonary vascular congestion. There are bilateral pleural effusions left greater than right. There are nonspecific basal airspace opacities likely representing compressive atelectasis. A superimposed inflammatory process could appear similar. IMPRESSION: 1. Cardiomegaly and radiographic evidence of mild congestive failure/fluid overload 2. Bilateral pleural effusions left greater than right with associated bibasal airspace opacities CHEST ONE VIEW PORTABLE CLINICAL HISTORY: CHF dyspnea COMPARISON STUDY: 06/28/2017 FINDINGS: Persistent left and to lesser extent right pleural effusion. Mild bibasilar parenchymal infiltrative change considered stable. Components mild congestive failure slightly progressive. Bipolar cardiac pacemaker in good position. IMPRESSION: Mild congestive failure slightly progressive from the prior exam. 2. Left and to a lesser extent right pleural effusion stable to minimally progressive. Impression Assessment and Plan Mr. Guevara is an 86 yo male with history of cardiovascular disease who presents for shortness of breath, CXR findings, BNP elevation, and edema consistent with congestive heart failure. He reports feeling better today since receiving diuretics yesterday. Edema appears mild at this point. 1: CHF exacerbation: subjectively improving, continues to have reassuring O2 saturation, however continues to have elevated BP. CBC notable [place] [address], Troponin negative, CK-MB negative. BUN/Cr of 47/1.62, BMP otherwise normal. Plan: Continue with Coreg 25 mg BID, Bumetanide 1mg qdaily, and metoprolol 5mg Q4 PRN. 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 Regular BP checks. If acute exacerbations, may use Lasix, Morphine, and/or Nitrates for management. 2: COPD: Stable clinically. Plan: May use Duoneb as needed for symptoms 3: Vascular disease: Stable. Plan: For DVT prophylaxis, encourage ambulation as tolerated. If non-ambulatory or limited mobility, use Heparin 5000 Units Q12. 4: Health maintenance: Plan: May continue home supplements of B12, Calcium, Iron, Multivitamin, Aspirin Level of Care Telemetry Advanced Directives Existing Living Will: Yes Existing Power of Bail Agent: Yes
--- NOTE | 2017-06-29 13:22 | ECHOCARDIOGRAM REPORT ---
*NOTICE TO RECEIVING CONSTITUTION PARTY AGENCY This information is strictly Confidential and protected under [place] law. [place] law prohibits you from making any further disclosure of this information unless further disclosure is expressly permitted by the written consent of the person to whom it pertains or is authorized by law. A general authorization for the release of medical or other information is not sufficient for this purpose. Hospital accepts no responsibility if the information is made available to any other person, INCLUDING THE PATIENT. Interpretation Summary * Name: BOO REGAN Study Date: 06/29/2017 06:54 AM BP: 174/77 mmHg * Patient Location: C.2T\S\S238\S\2 HR: 73 * : 1930 (M/d/yyy) Gender: Male Height: 63 in * Age: 86 yrs Ethnicity: [place] Weight: 172 lb * Ordering Physician: Sd Avila * Performed By: Susan Tony RDCS * * Reason For Study: CHF * BSA: 1.8 m2 * Moderate left ventricular systolic function. * Moderate concentric left ventricular hypertrophy. * Moderate left atrial dilatation. * Severe calcific aortic stenosis. * Mild aortic regurgitation. * Trace pulmonic regurgitation. * Moderate mitral and tricuspid regurgitation. * Severe pulmonary hypertension. * Comapred to an echo of 01/04/2015, the LV function systolic has improved. * -- Conclusions -- * There is severe calcific aortic valve stenosis. Procedure Details * A complete two-dimensional transthoracic echocardiogram was performed (2D, M-mode, Doppler and color flow Doppler). Left Ventricle * The left ventricle is normal in size. * There is moderate concentric left ventricular hypertrophy. * Ejection Fraction = 35-40%. * Left ventricular systolic function is moderately reduced. * Inferior and posterior severe hypokinesis to akinesis. The other LV segments are hypokinetic. Right Ventricle * The right ventricle is normal in size and function. * There is a pacemaker lead in the right ventricle. * The right ventricular systolic function is normal as assessed by tricuspid annular plane systolic excursion (TAPSE) (normal >1.5 cm). Atria * The left atrium is moderately dilated. * Right atrial size is normal. * No ASD detected; PFO is not assessed. Mitral Valve * There is moderate mitral annular calcification. * Calcified mitral apparatus. * There is no mitral valve stenosis. * There is moderate mitral regurgitation. Tricuspid Valve * The tricuspid valve leaflets are thickened and/or calcified, but open well. * There is no tricuspid stenosis. * There is moderate tricuspid regurgitation. * Right ventricular systolic pressure is elevated at >60mmHg. Aortic Valve * The aortic valve is trileaflet. * There is severe calcific aortic valve stenosis. * Aortic valve area was calculated at 0.82 cm\S\2 using the continuity equation. * Mild aortic regurgitation. Pulmonic Valve * The pulmonic valve is not well visualized. * The pulmonary valve is inadequately visualized, but the Doppler data is adequate for interpretation. * Pulmonic stenosis is absent. * Trace pulmonic valvular regurgitation. Great Vessels * The aortic root is normal size. Pericardium/Pleural * There is no pericardial effusion. * Small left pleural effusion. Great Vessels * Normal inferior vena cava diameter and respiratory variation suggests normal central venous pressure. MMode 2D Measurements and Calculations IVSd 1.6 cm IVSs 1.8 cm LVIDd 5.2 cm LVIDs 4.2 cm LVPWd 1.6 cm LVPWs 1.6 cm IVS/LVPW 1.0 FS 19.8 % EDV(Teich) 129.3 ml ESV(Teich) 77.1 ml EF(Teich) 40.4 % EDV(cubed) 140.4 ml ESV(cubed) 72.3 ml EF(cubed) 48.5 % % IVS thick 11.8 % % LVPW thick 3.9 % LV mass(C)d 375.2 grams LV mass(C)dI 206.8 grams/m\S\2 LV mass(C)s 307.4 grams LV mass(C)sI 169.5 grams/m\S\2 SV(Teich) 52.2 ml SI(Teich) 28.8 ml/m\S\2 SV(cubed) 68.0 ml SI(cubed) 37.5 ml/m\S\2 EPSS 1.1 cm ACS 0.49 cm LA dimension 4.5 cm asc Aorta Diam 2.6 cm LVOT diam 2.1 cm LVOT area 3.5 cm\S\2 LVAd ap4 38.1 cm\S\2 LVLd ap4 8.4 cm EDV(MOD-sp4) 141.6 ml EDV(sp4-el) 146.2 ml LVAs ap4 27.0 cm\S\2 LVLs ap4 7.5 cm ESV(MOD-sp4) 81.7 ml ESV(sp4-el) 82.8 ml EF(MOD-sp4) 42.3 % EF(sp4-el) 43.3 % LVAd ap2 41.7 cm\S\2 LVLd ap2 9.2 cm EDV(MOD-sp2) 159.0 ml EDV(sp2-el) 160.8 ml LVAs ap2 30.4 cm\S\2 LVLs ap2 8.6 cm ESV(MOD-sp2) 91.6 ml ESV(sp2-el) 91.3 ml EF(MOD-sp2) 42.3 % EF(sp2-el) 43.2 % LVLd %diff 7.8 % EDV(MOD-bp) 157.7 ml LVLs %diff 12.8 % ESV(MOD-bp) 93.0 ml EF(MOD-bp) 41.0 % SV(MOD-sp4) 59.9 ml SI(MOD-sp4) 33.0 ml/m\S\2 SV(MOD-sp2) 67.3 ml SI(MOD-sp2) 37.1 ml/m\S\2 SV(MOD-bp) 64.7 ml SI(MOD-bp) 35.7 ml/m\S\2 SV(sp4-el) 63.4 ml SI(sp4-el) 34.9 ml/m\S\2 SV(sp2-el) 69.5 ml SI(sp2-el) 38.3 ml/m\S\2 Doppler Measurements and Calculations MV E max pearl 111.6 cm/sec MV A max pearl 73.3 cm/sec MV E/A 1.5 MV dec time 0.20 sec Ao V2 max 263.9 cm/sec Ao max PG 27.9 mmHg Ao max PG (full) 26.3 mmHg DIONICIO(V,A) 0.82 cm\S\2 DIONICIO(V,D) 0.82 cm\S\2 AI max pearl 407.4 cm/sec AI max PG 66.4 mmHg AI dec slope 338.7 cm/sec\S\2 AI P1/2t 352.2 msec LV V1 max PG 1.6 mmHg LV V1 max 62.6 cm/sec MR max pearl 623.1 cm/sec MR max PG 155.4 mmHg MR mean pearl 452.1 cm/sec MR mean PG 94.6 mmHg MR VTI 236.5 cm PA V2 max 68.2 cm/sec PA max PG 1.9 mmHg TR max pearl 403.8 cm/sec
--- NOTE | 2017-06-29 13:36 | CARDIOLOGY CONSULTATION REPORT ---
DATE OF CONSULTATION: 06/29/2017 REASON FOR CONSULTATION: 1. Acute on Chronic Combined Systolic and Diastolic CHF. 2. 14-Ronks non-intentional weight gain over the past month. 3. Shortness of breath. 4. Abdominal bloating. HISTORY OF PRESENT ILLNESS: Mr. Guevara is a very pleasant 86-year-old white male with a history of chronic combined systolic and diastolic CHF, CAD, moderate to severe , mitral regurgitation, tricuspid regurgitation, pulmonary hypertension, Cardiomyopathy with an LVEF of 40%-45%, and a history of complete heart block s/p pacemaker remotely, upgrading to biventricular pacemaker within the past 2 years, carotid artery disease s/p right carotid endarterectomy, COPD (on home oxygen at night), hypertension, dyslipidemia, stage III chronic kidney disease, and a history of PAD who presented acutely to [facility] Emergency Room yesterday afternoon complaining of shortness of breath over the preceding day, 14-16 pounds of non-intentional weight gain over the past month, abdominal distention, leg edema, and dyspnea on minimal exertion. His oxygen saturation was 84% on admission, and he was noted to be in acute CHF as evidenced by his abnormal chest x-ray and a markedly elevated proBNP. The patient has been maintained on Coreg 25 mg b.i.d., hydralazine, nitroglycerin ointment, aspirin, and Questran Light. Additionally, he was converted from oral Lasix to IV Bumex 1 mg daily and has had a good diuretic response. His body weight is down approximately 4 pounds -- according to the patient -- and he is less short of breath. The patient offers no other complaints. He denies any chest pain, heaviness, tightness, pressure, or angina pectoris. He denies any palpitations, tachypalpitations, syncope, or near syncope. As mentioned above, he is short of breath at rest, and with even minimal activities. He has slept on a wedge for at least 2-3 years due to his breathing. The patient denies any recent changes in his dietary sodium intake. He eats in a restaurant about once a month, but otherwise adheres to a low sodium diet. He has not had any recent changes in his medications. The patient offers no other complaints. MEDICATIONS: 1. Hydralazine 25 mg b.i.d. 2. Bumex 1 mg IV daily. 3. Vitamin D 400 IUs daily. 4. Vitamin B12 100 mcg daily. 5. Multivitamin daily. 6. Coreg 25 mg b.i.d. 7. Feosol 325 mg t.i.d. 8. Lopressor 5 mg IV q. 4 hours p.r.n. for systolic blood pressure greater than 160 or heart rate greater than 70. 9. Hydralazine 10 mg IV q. 4 hours p.r.n. for systolic blood pressure greater than 160. 10. Heparin 5000 unit subcutaneus injection b.i.d. 11. Aspirin 81 mg daily. 12. Questran 4 g p.o. b.i.d. 13. Celexa 40 mg at bedtime 14. DuoNeb nebulizers q.i.d. 15. Tylenol p.r.n. 16. Maalox Max p.r.n. 17. Milk of magnesia p.r.n. 18. Ambien 5 mg at bedtime p.r.n. for sleep. 19. Zofran 4 mg IV q. 6 hours p.r.n. for nausea. 20. MiraLax 17 g daily as needed for constipation. ALLERGIES: NKDA. PAST MEDICAL HISTORY: 1. Valvular heard disease. 2. Chronic combined systolic and diastolic CHF. 3. CAD status post Cardiac Catheterization in 01/30/2015 (showing 60% mid LAD stenosis, 70% mid RCA stenosis, 60%-70% mid RCA stenosis and 70% ostial right LULÚ stenosis). 4. Cardiomyopathy, LVEF appears to be 40%-45%. 5. History of complete heart block status post dual chamber pacemaker remotely, with more recently upgrading to biventricular pacemaker within the past 2 years. 6. COPD, on nocturnal oxygen. 7. Stage III chronic kidney disease. 8. PAD with intermittent claudication. 9. Hypertension. 10. Dyslipidemia. 11. Carotid artery stenosis status post right carotid endarterectomy. 12. Elevated pulmonary pressures. SOCIAL HISTORY: The patient is and lives in [place], [place]. He does not use tobacco or tobacco products. He is former a smoker. Does not drink alcohol. FAMILY HISTORY: Noncontributory. PHYSICAL EXAMINATION: VITAL SIGNS: Temperature is 36.8 degree Celsius, pulse is 65 and regular, respiratory rate is 16 and unlabored, blood pressure is 166/70, SpO2 is 92% on 2 liters of oxygen via nasal cannula. GENERAL: The patient is in no acute distress. HEENT: Head is atraumatic, normocephalic. EOMs intact. Sclerae anicteric. Facies symmetric. No perioral cyanosis. NECK: Shows +2 carotid upstrokes. JVP is elevated, approximately 1/[address] to [address] to the angle of jaw. CHEST AND LUNGS: Diminished breath sounds in the right base, absent breath sounds in the left base. Otherwise, scattered crackles in the lower lung wolff. CARDIOVASCULAR: S1 and S2 are regular with a grade 2/6 crescendo decrescendo basal systolic murmur heard best right second intercostal space with a mildly diminished aortic valve closure sound. There is also a grade 1/6 apical holosystolic murmur heard best at the apex, left sternal border. No diastolic murmur is appreciated. No abdominal aortic or renal bruits. ABDOMEN: Bowel sounds present. Abdomen mildly distended. No masses, organomegaly, or tenderness. EXTREMITIES: Without clubbing or cyanosis. There is trace to +1 pitting edema to the mid tibia bilaterally. NEUROLOGIC: The patient is awake, alert, and oriented. Pleasant and cooperative. Answers questions appropriately. Speech is clear. Normal movement in bilateral upper and lower extremities. Gait pattern not assessed. DATA: Shows mostly atrial sensing with biventricular pacing -- the vast majority of time. He has an underlying normal sinus rhythm. QRS duration varies between 130-150 msec. No acute changes noted. Telemetry monitoring reveals underlying sinus rhythm with predominantly biventricular pacing. Chest x-ray shows a left pleural effusion, and a smaller right sided pleural effusion, pulmonary edema is present. LABORATORY DATA: White blood cell count is 10.49, hemoglobin 11.7 g/dL, hematocrit 36.9%, and platelet count 245,000. Sodium is 141 mmol/L, potassium 4.1 mmol/L, BUN is 47 mg/dL, creatinine 1.62 mg/dL. Total CKs are 32 and 33 units per liter with respective CK-MBs of 1.7 and 2.1 ng/mL. ProBNP is markedly elevated at 22,278 pg/mL. Troponin I levels are 0.033 and 0.034 and 0.033 ng/mL. TSH normal at 1.250. Serum magnesium level was 2.2 mg/dL. I and O's: Body weight 74.2 kg, down 1.3 kg from yesterday. I&O's minus 300 mL total. ASSESSMENT: 1. Acute on Chronic Combined Systolic and Diastolic CHF 2. Cardiomyopathy with a left ventricular ejection fraction of 40%-45%. 3. Valvular heart disease with severe aortic stenosis, moderate mitral regurgitation, moderate tricuspid regurgitation. 4. Coronary artery disease as described above. 5. Carotid artery stenosis status post right carotid endarterectomy. 6. Peripheral artery disease with intermittent claudication. 7. Stage III chronic kidney disease. 8. History of paroxysmal atrial fibrillation. 9. Complete heart block status post biventricular pacemaker placement. 10. Hypertension, not adequately controlled. 11. Dyslipidemia, on [facility] Questran. 12. Diagnosis as mentioned above. PLAN: 1. Continue Coreg 25 mg b.i.d. 2. Increase Hydralazine to 50 mg p.o. b.i.d. 3. Continue IV Bumex 1 mg daily as he is gently diuresing and symptomatically significantly better than yesterday. 4. Continue to closely monitor daily I and O's, body weights. 5. Continue IV Lopressor and IV hydralazine as directed and as needed. 6. Continue topical nitrates for the time being. 7. Continue [facility] aspirin. 8. Would strongly consider sending him home on bumetanide in place of furosemide - as Bumex is better absorbed in an edematous gut as compared to Lasix. 9. Maintain a low sodium, heart-healthy diet. 10. Continue monitoring daily weights, I and O's. 11. Continue to closely monitor renal function and electrolytes while on IV diuretics. 12. Echocardiogram was performed, assistant kitchen manager's interpretation is pending. 13. This patient's care will be assumed by Dr. Howell as of tomorrow. EBONI
--- NOTE | 2017-06-29 16:06 | Progress Note ---
Subjective Date of Service: Jun 29, 2017. Subjective Pt evaluation today including: conversation w/ patient, physical exam, chart review, lab review, review of studies, review of inpatient medication list Resting in bed comfortably No complaints at this time Problem List Medical Problems: (1) Acute kidney injury Status: Acute (2) CHF (congestive heart failure) Status: Acute (3) Chronic CHF Status: Acute (4) Elevated brain natriuretic peptide (BNP) level Status: Acute (5) Hypoxia Status: Acute (6) Pleural effusion Status: Acute Review of Systems Constitutional: No fever, No chills, No sweats, No weakness Eyes: No worsening of vision, No eye pain, No redness, No discharge Respiratory: No cough, No sputum, No wheezing Cardiac: + edema, No chest pain, No orthopnea, No PND Abdomen: No pain, No nausea, No vomiting, No diarrhea, No constipation Musculoskeletal: No joint pain, No muscle pain, No swelling, No calf pain Male : No dysuria, No urinary frequency, No incontinence, No slowing stream Neurologic: No memory loss, No paralysis, No weakness, No numbness/tingling Psychiatric: No depression symptoms, No anhedonism, No anxiety, No insomnia Endo: No fatigue, No excessive thirst Skin: No rash, No itch Objective Vital Signs Date Time Temp Pulse Resp B/P (MAP) Pulse Ox O2 Delivery O2 Flow Rate FiO2 06/29/17 15:26 74 18 95 Nasal Cannula 2.0 06/29/17 12:01 Nasal Cannula 3.5 06/29/17 11:30 36.8 65 18 166/70 (102) 92 2.0 06/29/17 11:28 65 18 93 Nasal Cannula 2.0 06/29/17 10:02 36.8 60 18 157/67 (97) 91 06/29/17 07:38 36.8 69 18 196/78 (117) 93 3.0 06/29/17 07:38 76 18 96 Nasal Cannula 2.0 06/29/17 07:30 Nasal Cannula 3.5 06/29/17 04:00 Nasal Cannula 3.5 06/29/17 03:08 36.8 73 19 174/77 (109) 93 Nasal Cannula 3.5 06/29/17 01:35 177/53 (94) 06/29/17 00:38 72 06/29/17 00:02 Nasal Cannula 3.5 06/28/17 23:19 36.6 71 19 196/74 (114) 91 Nasal Cannula 3.5 06/28/17 22:15 74 196/80 (118) 06/28/17 22:00 36.8 78 20 206/79 94 Nasal Cannula 2.0 06/28/17 21:45 80 20 90 Nasal Cannula 2.0 06/28/17 21:29 36.7 75 18 190/102 98 06/28/17 20:19 78 18 193/107 98 Nasal Cannula 4.0 06/28/17 18:38 75 18 199/90 96 Nasal Cannula 4.0 06/28/17 17:57 72 18 189/77 97 Nasal Cannula 06/28/17 17:53 97 Nasal Cannula 4.0 06/28/17 17:17 74 06/28/17 16:57 84 Room Air 06/28/17 16:57 84 Room Air 06/28/17 16:56 96 Nasal Cannula 4.0 06/28/17 16:47 36.7 76 18 187/67 88 Room Air Physical Exam General Appearance: WD/WN, no apparent distress Eyes: normal inspection, PERRL, EOMI, sclerae normal Neck: supple, no adenopathy, thyroid normal, no JVD Respiratory/Chest: chest non-tender, lungs clear, normal breath sounds, no respiratory distress Cardiovascular: no edema, no gallop, no JVD, + systolic murmur Abdomen: normal bowel sounds, non tender, soft, no organomegaly Neurologic/Psychiatric: no motor/sensory deficits, alert, normal mood/affect Laboratory Results Last 24 Hours Test 06/28/17 17:10 06/28/17 19:30 06/29/17 00:46 06/29/17 06:32 White Blood Count 10.49 K/uL Red Blood Count 3.55 M/uL Hemoglobin 11.7 g/dL Hematocrit 36.9 % Mean Corpuscular Volume 103.9 fL Mean Corpuscular Hemoglobin 33.0 pg Mean Corpuscular Hemoglobin Concent 31.7 g/dl Platelet Count 245 K/uL Mean Platelet Volume 10.2 fL Neutrophils (%) (Auto) 70.8 % Lymphocytes (%) (Auto) 18.2 % Monocytes (%) (Auto) 7.8 % Eosinophils (%) (Auto) 2.5 % Basophils (%) (Auto) 0.3 % Neutrophils # (Auto) 7.43 K/uL Lymphocytes # (Auto) 1.91 K/uL Monocytes # (Auto) 0.82 K/uL Eosinophils # (Auto) 0.26 K/uL Basophils # (Auto) 0.03 K/uL RDW Standard Deviation 54.9 fL RDW Coefficient of Variation 14.3 % Immature Granulocyte % (Auto) 0.4 % Immature Granulocyte # (Auto) 0.04 K/uL Prothrombin Time 10.4 SECONDS Prothromb Time International Ratio 1.0 Activated Partial Thromboplast Time 24.8 SECONDS Partial Thromboplastin Ratio 1.0 Sodium Level 141 mmol/L 141 mmol/L Potassium Level 4.3 mmol/L 4.1 mmol/L Chloride Level 104 mmol/L 104 mmol/L Carbon Dioxide Level 32 mmol/L 32 mmol/L Anion Gap 6.0 mmol/L 5.0 mmol/L Blood Urea Nitrogen 49 mg/dl 47 mg/dl Creatinine 1.72 mg/dl 1.62 mg/dl Est Creatinine Clear Calc Drug Dose 27.2 ml/min 29.0 ml/min Estimated GFR () 40.5 43.6 Estimated GFR (Non- 35.0 37.6 BUN/Creatinine Ratio 28.6 28.8 Random Glucose 120 mg/dl 93 mg/dl Calcium Level 9.0 mg/dl 9.0 mg/dl Magnesium Level 2.3 mg/dl 2.2 mg/dl Total Bilirubin 0.5 mg/dl Aspartate Amino Transf (AST/SGOT) 14 U/L Alanine Aminotransferase (ALT/SGPT) 17 U/L Alkaline Phosphatase 49 U/L Troponin I 0.033 ng/ml 0.034 ng/ml Pro-B-Type Natriuretic Peptide 89548 pg/ml 40103 pg/ml Total Protein 7.2 gm/dl Albumin 3.6 gm/dl Globulin 3.6 gm/dl Albumin/Globulin Ratio 1.0 Thyroid Stimulating Hormone (TSH) 1.250 uIu/ml Total Creatine Kinase 33 U/L Creatine Kinase MB 2.1 ng/ml Creatine Kinase MB Ratio 6.4 Phosphorus Level 3.4 mg/dl Test 06/29/17 09:20 Total Creatine Kinase 32 U/L Creatine Kinase MB 1.7 ng/ml Creatine Kinase MB Ratio 5.3 Troponin I 0.033 ng/ml Assessment and Plan An 86-year-old white male with the conditions as below: 1. Acute on chronic diastolic and systolic heart failure. 2. Diffuse wheezing with history of chronic obstructive pulmonary disease. 3. Accelerated hypertension. 4. History of atrial fibrillation. 5. History of dyslipidemia. 6. History of pulmonary hypertension. 7. History of peripheral vascular disease and history of right carotid endarterectomy. 8. History of chronic kidney disease. BUN and creatinine is in the best at the baseline. 1. CHF protocol, tele monitor, Cont IV bumex 1 mg daily. Check renal function and electrolytes tomorrow. Fluid limit to 1.5 oral daily. 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 Howell has requested consultation. Continue beta jose elias. 2. For accelerated hypertension, continue home medications and make hydralazine as needed. Check TSH. The patient has pleural effusion that may need to have 2 view chest x-ray to further define if needed paracentesis to remove fluid or not. 3. I discussed with patient and about the patient's condition and care plan. I answered all the questions. The patient is do not resuscitation patient. PT, OT and tomorrow morning lab was ordered.
[2017-06-29] MEDS: CITALOPRAM 40 MG TAB PO SCH (20:01)
[2017-06-29] MEDS: ASPIRIN 81 MG ECTAB PO SCH (20:01)
[2017-06-30] VITALS (11 sets, daily range): BP systolic 94–179; BP diastolic 50–70; PULSE 62–80; TEMP 36.3–37.3; O2SAT 74–98
[2017-06-30] MEDS: ALBUT/IPRATROP 3MG/0.5MG NEB 3 ML VIAL INH SCH ×4 (07:06→20:06)
[2017-06-30 08:37] LABS: BUN/CREATININE RATIO 26.6 (10-20); CALCIUM 8.5 mg/dl (8.5-10.1); CREATININE 2.07 mg/dl (0.60-1.40); POTASSIUM 4.1 mmol/L (3.5-5.1)
--- NOTE | 2017-06-30 08:55 | Cardiology Follow-Up ---
Subjective General Date of Service: Jun 30, 2017. Pt evaluation today including: conversation w/ patient, chart review, lab review, review of studies History of Present Illness The patient is a 86 year old male Allergies Coded Allergies: No Known Allergies (Verified , 06/28/17) Social History Smoking Status: Former Smoker (quit 25-30 years ago, previously 20 pack year) Hx Tobacco Use In Past Year?: No Hx Alcohol Use - Type And Amou: No Hx Substance Use - Type And Am: No Problem List Medical Problems: (1) Acute kidney injury Status: Acute (2) CHF (congestive heart failure) Status: Acute (3) Chronic CHF Status: Acute (4) Elevated brain natriuretic peptide (BNP) level Status: Acute (5) Hypoxia Status: Acute (6) Pleural effusion Status: Acute Review of Systems Respiratory: + shortness of breath, No cough, No dyspnea at rest Cardiac: + edema, No chest pain, No orthopnea, No palpitations Physical Exam Vital Signs Last Vital Signs Documentation Date Time Temp Pulse Resp B/P (MAP) Pulse Ox O2 Delivery O2 Flow Rate FiO2 06/30/17 07:38 37.0 69 16 179/67 (104) 94 06/30/17 07:28 Room Air 06/30/17 04:00 3.0 Physical Exam Constitutional: General Apperance: heathly-appearing Level of Distress: NAD Lungs: Respiratory effort: no dyspnea Auscultation: no wheezing, no rales/crackles, no rhonchi, decreased breath sounds (bases B/l) Cardiovascular: Heart Auscultation: RRR, II/ NIYAH (late peaking) Abdomen: Bowel Sounds: normal Inspection & Palpation: soft, no tenderness, guarding & rebound, distended Extremities: edema (mild b/l) Assessment and Plan Assessment and Plan ASSESSMENT: 1. Acute on Chronic Combined Systolic and Diastolic CHF 2. Cardiomyopathy with a left ventricular ejection fraction of 35-40%. 3. Valvular heart disease with severe aortic stenosis, moderate mitral regurgitation, moderate tricuspid regurgitation. 4. Coronary artery disease 5. Carotid artery stenosis status post right carotid endarterectomy. 6. Peripheral artery disease with intermittent claudication. 7. Stage III chronic kidney disease with BRYAN on CKD 8. History of paroxysmal atrial fibrillation. 9. Complete heart block status post biventricular pacemaker placement. 10. Hypertension, not adequately controlled. 11. 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 Laboratory Results Last 24 Hours Test 06/29/17 09:20 06/30/17 07:30 Total Creatine Kinase 32 U/L Creatine Kinase MB 1.7 ng/ml Creatine Kinase MB Ratio 5.3 Troponin I 0.033 ng/ml Sodium Level 141 mmol/L Potassium Level 4.1 mmol/L Chloride Level 103 mmol/L Carbon Dioxide Level 30 mmol/L Anion Gap 8.0 mmol/L Blood Urea Nitrogen 55 mg/dl Creatinine 2.07 mg/dl Est Creatinine Clear Calc Drug Dose 22.5 ml/min Estimated GFR () 32.4 Estimated GFR (Non- 28.0 BUN/Creatinine Ratio 26.6 Random Glucose 85 mg/dl Calcium Level 8.5 mg/dl
[2017-06-30] MEDS: HEPARIN SOD 5000 UNIT/0.5 ML CARP SQ SCH ×2 (09:00→20:52)
[2017-06-30] MEDS: FERROUS SULFATE 325 MG TAB PO SCH ×3 (09:15→17:18)
[2017-06-30] MEDS: MULTIVITAMIN TAB PO SCH (09:15)
[2017-06-30] MEDS: CYANOCOBALAMIN 100 MCG TAB (VIT B-12) PO SCH (09:15)
[2017-06-30] MEDS ORDERED: BUMETANIDE 1 MG TAB PO SCH (09:15)
[2017-06-30] MEDS: CHOLECALCIFEROL 400 INTER.UNIT TAB PO SCH (09:16)
[2017-06-30] MEDS: CARVEDILOL 25 MG TAB PO SCH ×2 (09:16→20:55)
--- NOTE | 2017-06-30 13:07 | Progress Note ---
Subjective Date of Service: Jun 30, 2017. Subjective Pt evaluation today including: conversation w/ patient, physical exam, chart review, lab review, review of studies, review of inpatient medication list Resting comfortably in bed Denies any complaints at this time No shortness of breath noted States leg swelling improved Problem List Medical Problems: (1) Acute kidney injury Status: Acute (2) CHF (congestive heart failure) Status: Acute (3) Chronic CHF Status: Acute (4) Elevated brain natriuretic peptide (BNP) level Status: Acute (5) Hypoxia Status: Acute (6) Pleural effusion Status: Acute Review of Systems Constitutional: No fever, No chills, No sweats, No weight loss, No weakness Eyes: No worsening of vision, No eye pain, No redness, No discharge ENT: No hearing loss, No unusual epistaxis, No nasal symptoms, No sore throat Respiratory: No cough, No sputum, No wheezing, No shortness of breath, No dyspnea on exertion Cardiac: No chest pain, No orthopnea, No PND, No edema, No claudication Abdomen: No pain, No nausea, No vomiting, No diarrhea, No constipation Musculoskeletal: No joint pain, No muscle pain, No swelling, No calf pain Male : No dysuria, No urinary frequency, No incontinence, No slowing stream Neurologic: No memory loss, No paralysis, No weakness, No numbness/tingling Psychiatric: No depression symptoms, No anhedonism, No anxiety, No insomnia Endo: No fatigue, No excessive thirst Skin: No rash, No itch Objective Vital Signs Date Time Temp Pulse Resp B/P (MAP) Pulse Ox O2 Delivery O2 Flow Rate FiO2 06/30/17 11:05 62 18 93 Nasal Cannula 3.0 06/30/17 10:59 36.6 65 14 113/50 (71) 91 Nasal Cannula 3.0 06/30/17 08:48 Nasal Cannula 3.0 06/30/17 08:00 Nasal Cannula 3.0 06/30/17 07:38 37.0 69 16 179/67 (104) 94 06/30/17 07:28 80 18 74 Room Air 06/30/17 04:00 Nasal Cannula 3.0 06/30/17 03:46 37.3 78 17 131/67 (88) 93 06/30/17 00:07 121/57 (78) 06/29/17 23:59 Nasal Cannula 3.0 06/29/17 23:22 36.9 71 20 116/49 (71) 90 Nasal Cannula 3.0 06/29/17 20:00 Nasal Cannula 2.0 06/29/17 19:23 75 18 95 Nasal Cannula 2.0 06/29/17 18:54 36.9 69 19 159/65 (96) 94 Nasal Cannula 2.0 06/29/17 16:00 Nasal Cannula 2.0 06/29/17 15:26 74 18 95 Nasal Cannula 2.0 06/29/17 15:14 36.7 67 18 141/64 (89) 92 Nasal Cannula 2.0 Physical Exam General Appearance: WD/WN, no apparent distress Eyes: normal inspection, PERRL, EOMI, sclerae normal Neck: supple, no adenopathy, thyroid normal, no JVD Respiratory/Chest: chest non-tender, no respiratory distress, no accessory muscle use, + decreased breath sounds Cardiovascular: no edema, no gallop, no JVD, no murmur Abdomen: normal bowel sounds, non tender, soft, no organomegaly Extremities: normal range of motion, non-tender, normal inspection, no pedal edema Neurologic/Psychiatric: no motor/sensory deficits, alert, normal mood/affect, oriented x 3 Skin: normal color, warm/dry, no rash Lymphatic: no adenopathy Laboratory Results Last 24 Hours Test 06/30/17 07:30 Sodium Level 141 mmol/L Potassium Level 4.1 mmol/L Chloride Level 103 mmol/L Carbon Dioxide Level 30 mmol/L Anion Gap 8.0 mmol/L Blood Urea Nitrogen 55 mg/dl Creatinine 2.07 mg/dl Est Creatinine Clear Calc Drug Dose 22.5 ml/min Estimated GFR () 32.4 Estimated GFR (Non- 28.0 BUN/Creatinine Ratio 26.6 Random Glucose 85 mg/dl Calcium Level 8.5 mg/dl Assessment and Plan An 86-year-old white male with the conditions as below: 1. Acute on chronic diastolic and systolic heart failure. 2. Diffuse wheezing with history of chronic obstructive pulmonary disease. 3. Accelerated hypertension. 4. History of atrial fibrillation. 5. History of dyslipidemia. 6. History of pulmonary hypertension. 7. History of peripheral vascular disease and history of right carotid endarterectomy. 8. History of chronic kidney disease. BUN and creatinine is in the best at the baseline. 1. CHF protocol, tele monitor, Coverted IV bumex 1 mg daily to PO bumex. Will hold off on AM dosing until Cr available. Continue fluid restriction to 1.5 L daily. 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 Howell has requested consultation. Continue beta jose elias. Pt would benefit from ACEI 2. For accelerated hypertension, continue home medications and make hydralazine as needed. The patient has pleural effusion that may need to have 2 view chest x-ray to further define if needed paracentesis to remove fluid or not. 3. I discussed with patient and about the patient's condition and care plan. I answered all the questions. The patient is do not resuscitation patient. PT, OT pending.
--- NOTE | 2017-06-30 13:32 | Medical Student: [facility] ---
Med Student Progress Note Date of Service Jun 30, 2017. Subjective Pt evaluation today including: conversation w/ patient Today Mr. Guevara is feeling well. He had a PT evaluation and says that during his walk he felt fine, did not feel short of breath or have chest pain. He has no breathing concerns at this time and says his coughing has improved. He also mentions that the bloating of his abdomen that he felt when he first came in, has also improved. Denies swelling, fever, n/v/d/c, incontinence, shortness of breath or chest pain. Review of Systems Constitutional: No fever, No chills, No sweats, No problem reported Respiratory: No cough, No sputum, No wheezing, No shortness of breath, No dyspnea on exertion, No dyspnea at rest, No hemoptysis Cardiac: No chest pain, No edema, No claudication, No palpitations Male : No dysuria, No urinary frequency, No incontinence, No slowing stream Objective Vital Signs Date Time Temp Pulse Resp B/P (MAP) Pulse Ox O2 Delivery O2 Flow Rate FiO2 06/30/17 12:00 Nasal Cannula 3.0 06/30/17 11:05 62 18 93 Nasal Cannula 3.0 06/30/17 10:59 36.6 65 14 113/50 (71) 91 Nasal Cannula 3.0 06/30/17 08:48 Nasal Cannula 3.0 06/30/17 08:00 Nasal Cannula 3.0 06/30/17 07:38 37.0 69 16 179/67 (104) 94 06/30/17 07:28 80 18 74 Room Air 06/30/17 04:00 Nasal Cannula 3.0 06/30/17 03:46 37.3 78 17 131/67 (88) 93 06/30/17 00:07 121/57 (78) 06/29/17 23:59 Nasal Cannula 3.0 06/29/17 23:22 36.9 71 20 116/49 (71) 90 Nasal Cannula 3.0 06/29/17 20:00 Nasal Cannula 2.0 06/29/17 19:23 75 18 95 Nasal Cannula 2.0 06/29/17 18:54 36.9 69 19 159/65 (96) 94 Nasal Cannula 2.0 06/29/17 16:00 Nasal Cannula 2.0 10/23/17 15:26 74 18 95 Nasal Cannula 2.0 06/29/17 15:14 36.7 67 18 141/64 (89) 92 Nasal Cannula 2.0 Physical Exam General Appearance: WD/WN, no apparent distress ENT: hearing grossly normal Neck: supple, no JVD, no carotid bruits, trachea midline Respiratory/Chest: chest non-tender, lungs clear (Examined during breathing treatment), normal breath sounds, no respiratory distress, no accessory muscle use Cardiovascular: regular rate, rhythm, no edema, no gallop, no JVD, + systolic murmur (Holosystolic murmur present and audible throughout the chest, but best heard over aortic valve and mitral valve. Less intense than yesterday, grade 1/6 ) Abdomen: normal bowel sounds, non tender, soft, no pulsatile mass Extremities: non-tender, no pedal edema, no calf tenderness Neurologic/Psychiatric: alert, normal mood/affect Skin: normal color, warm/dry, no rash Laboratory Results Last 24 Hours Test 06/30/17 07:30 Sodium Level 141 mmol/L Potassium Level 4.1 mmol/L Chloride Level 103 mmol/L Carbon Dioxide Level 30 mmol/L Anion Gap 8.0 mmol/L Blood Urea Nitrogen 55 mg/dl Creatinine 2.07 mg/dl Est Creatinine Clear Calc Drug Dose 22.5 ml/min Estimated GFR () 32.4 Estimated GFR (Non- 28.0 BUN/Creatinine Ratio 26.6 Random Glucose 85 mg/dl Calcium Level 8.5 mg/dl Assessment and Plan Assessment and Plan: Mr. Guevara is an 86 yo male with history of cardiovascular disease who presents for shortness of breath, CXR findings, BNP elevation, and edema consistent with congestive heart failure. He continues to report feeling better today. He mentioned he felt no shortness of breath during ambulation but, per nursing and railway signal technician, his saturations dropped to the low 80's when they measured after walking, and after a period off O2 was at 74%. Edema appears to have resolved. Echo yesterday showed MR and . Cardiology is considering TAVR. 1: CHF exacerbation: subjectively improving, O2 saturation drops significantly during exercise and when off NC. These residual symptoms may take awhile to resolve, and patient may need to use O2 during the day following discharge for a period of time. Discontinuation of O2 can be determined at PCP visits. BP appears to be trending downward and stable, however had one peak BP of 179/67 this morning. Has received hydralazine for acute hypertension. Currently receiving metoprolol 5mg Q4 PRN and Carvedilol 25mg BID PO. CBC notable [place] [address], Troponin negative, CK-MB negative. BUN/Cr of 47/1.62, BMP otherwise normal. Plan: Continue with Coreg 25 mg BID and metoprolol 5mg Q4 PRN, and Aspirin 81mg qdaily. 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 Regular BP checks. 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 If acute exacerbations, may use Lasix, Morphine, and/or Nitrates for management. 2:Acute elevation of BUN/Cr: Likely due to rapid diuresis. Will need to discontinue bumetanide for today. Strict monitoring of IO's and weight checks daily. Given lack of edema and subjective improvement, likely do not need Lasix or Bumex again, but may want to consider adding and ACEI or ARB for [facility] therapy. Plan: Strict IO's monitoring, qdaily weight check. Hold Bumex and Lasix. Continue with metoprolol and carvedilol for hypertension. May add Lisinopril or Losartan for [facility] BP management. 3: COPD: Stable clinically. Plan: May use Duoneb as needed for symptoms 4: Vascular disease: Stable. Plan: For DVT prophylaxis, encourage ambulation as tolerated. If non-ambulatory or limited mobility, use Heparin 5000 Units Q12. 5: Health maintenance: Plan: May continue home supplements of B12, Calcium, Iron, Multivitamin Continued [facility] stay due to: ambulation difficulties (desaturation)
[2017-06-30] MEDS: CITALOPRAM 40 MG TAB PO SCH (20:55)
[2017-06-30] MEDS: ASPIRIN 81 MG ECTAB PO SCH (20:55)
[2017-07-01] VITALS (8 sets, daily range): BP systolic 136–177; BP diastolic 54–71; PULSE 55–73; TEMP 36.4–36.6; O2SAT 91–97
[2017-07-01] MEDS: ALBUT/IPRATROP 3MG/0.5MG NEB 3 ML VIAL INH SCH ×2 (06:57→11:21)
[2017-07-01 06:59] LABS: BUN/CREATININE RATIO 27.5 (10-20); CALCIUM 8.3 mg/dl (8.5-10.1); CREATININE 2.16 mg/dl (0.60-1.40); POTASSIUM 4.2 mmol/L (3.5-5.1)
[2017-07-01] MEDS: FERROUS SULFATE 325 MG TAB PO SCH ×2 (07:44→11:34)
[2017-07-01] MEDS: MULTIVITAMIN TAB PO SCH (07:44)
[2017-07-01] MEDS: CYANOCOBALAMIN 100 MCG TAB (VIT B-12) PO SCH (07:46)
[2017-07-01] MEDS: CHOLECALCIFEROL 400 INTER.UNIT TAB PO SCH (07:46)
[2017-07-01] MEDS: CARVEDILOL 25 MG TAB PO SCH (07:46)
[2017-07-01] MEDS: HEPARIN SOD 5000 UNIT/0.5 ML CARP SQ SCH (09:00)
--- NOTE | 2017-07-01 09:46 | Cardiology Follow-Up ---
Subjective General Date of Service: Jul 01, 2017. Pt evaluation today including: conversation w/ patient, chart review, lab review, review of studies History of Present Illness The patient is a 86 year old male Allergies Coded Allergies: No Known Allergies (Verified , 06/28/17) Social History Smoking Status: Former Smoker (quit 25-30 years ago, previously 20 pack year) Hx Tobacco Use In Past Year?: No Hx Alcohol Use - Type And Amou: No Hx Substance Use - Type And Am: No Problem List Medical Problems: (1) Acute kidney injury Status: Acute (2) CHF (congestive heart failure) Status: Acute (3) Chronic CHF Status: Acute (4) Elevated brain natriuretic peptide (BNP) level Status: Acute (5) Hypoxia Status: Acute (6) Pleural effusion Status: Acute Review of Systems Respiratory: No cough, No shortness of breath, No dyspnea at rest Cardiac: No chest pain, No edema, No palpitations Additional ROS Details: Feels better, ambulated yesterday without SOB Physical Exam Vital Signs Last Vital Signs Documentation Date Time Temp Pulse Resp B/P (MAP) Pulse Ox O2 Delivery O2 Flow Rate FiO2 07/01/17 08:26 63 136/54 (81) 07/01/17 07:40 36.5 16 91 Nasal Cannula 2.0 Physical Exam Constitutional: General Apperance: heathly-appearing Level of Distress: NAD Lungs: Respiratory effort: no dyspnea Auscultation: no wheezing, no rales/crackles, no rhonchi, decreased breath sounds (left base) Cardiovascular: Heart Auscultation: RRR, II/ NIYAH (late peaking) Abdomen: Bowel Sounds: normal Inspection & Palpation: soft, non-distended, no tenderness, guarding & rebound Extremities: no edema Assessment and Plan Assessment and Plan ASSESSMENT: 1. Acute on Chronic Combined Systolic and Diastolic CHF 2. Cardiomyopathy with a left ventricular ejection fraction of 35-40%. 3. Valvular heart disease with severe aortic stenosis, moderate mitral regurgitation, moderate tricuspid regurgitation. 4. Coronary artery disease 5. Carotid artery stenosis status post right carotid endarterectomy. 6. Peripheral artery disease with intermittent claudication. 7. Stage III chronic kidney disease with BRYAN on CKD 8. History of paroxysmal atrial fibrillation. 9. Complete heart block status post biventricular pacemaker placement. 10. Hypertension, not adequately controlled. 11. 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 Laboratory Results Last 24 Hours Test 07/01/17 06:09 Sodium Level 142 mmol/L Potassium Level 4.2 mmol/L Chloride Level 105 mmol/L Carbon Dioxide Level 31 mmol/L Anion Gap 6.0 mmol/L Blood Urea Nitrogen 59 mg/dl Creatinine 2.16 mg/dl Est Creatinine Clear Calc Drug Dose 21.6 ml/min Estimated GFR () 30.8 Estimated GFR (Non- 26.6 BUN/Creatinine Ratio 27.5 Random Glucose 90 mg/dl Calcium Level 8.3 mg/dl
--- NOTE | 2017-07-01 12:01 | Medical Student: [facility] ---
Med Student Progress Note Date of Service Jul 01, 2017. Subjective Pt evaluation today including: conversation w/ patient, physical exam Mr. Guevara feels well today. Denies concerns for shortness of breath when walking , denies chest pain, denies swelling, and voices no concerns otherwise at this time. Has been urinating well and has no concerns. Was curious about valve replacement and referral to [facility] as he heard mention of this from cardiology. I spoke to him and explained that this will be determined by cardiology, but to expect a conversation that will discuss pros and cons, and more details on the procedures and how it will benefit him and why it should or should not be done. He agrees that this will best be discussed with cardiology specifically. Notably, at time speaking to him, he had been off his oxygen for about an hour and he was not short of breath and saturating around 94%. Review of Systems Constitutional: No fever, No chills, No weakness, No fatigue Respiratory: No cough, No wheezing, No shortness of breath, No dyspnea on exertion Cardiac: No chest pain, No edema Abdomen: No nausea, No vomiting Objective Vital Signs Date Time Temp Pulse Resp B/P (MAP) Pulse Ox O2 Delivery O2 Flow Rate FiO2 07/01/17 11:08 36.4 63 16 177/65 (102) 92 07/01/17 08:26 63 136/54 (81) 07/01/17 08:00 Nasal Cannula 2.0 07/01/17 07:40 36.5 70 16 173/68 (103) 91 Nasal Cannula 2.0 07/01/17 06:59 55 16 97 Nasal Cannula 3.0 07/01/17 04:01 Nasal Cannula 3.0 07/01/17 03:53 36.6 73 19 155/71 (99) 92 Nasal Cannula 3.0 07/01/17 00:00 Nasal Cannula 3.0 06/30/17 23:34 36.8 71 21 148/70 (96) 98 Nasal Cannula 3.0 06/30/17 20:09 71 16 92 Nasal Cannula 3.0 06/30/17 20:04 Nasal Cannula 3.0 06/30/17 19:12 36.3 69 19 141/62 (88) 92 Nasal Cannula 4.0 06/30/17 16:00 Nasal Cannula 3.0 06/30/17 15:39 36.6 69 14 94/57 (69) 94 06/30/17 15:09 67 16 97 Nasal Cannula 3.0 06/30/17 12:00 Nasal Cannula 3.0 Physical Exam General Appearance: WD/WN, no apparent distress ENT: hearing grossly normal Neck: supple, no JVD, no carotid bruits, trachea midline Respiratory/Chest: chest non-tender, lungs clear (greatly improved since previous days), normal breath sounds, no respiratory distress, no accessory muscle use Cardiovascular: regular rate, rhythm, no edema, no gallop, no JVD, + systolic murmur (same 2/6 holosystolic murmur that has been heard during hospital stay. Harper over aortic and mitral valves.) Abdomen: non tender, soft Extremities: non-tender, normal inspection, no pedal edema Neurologic/Psychiatric: alert, normal mood/affect Skin: normal color, warm/dry, no rash Laboratory Results Last 24 Hours Test 07/01/17 06:09 Sodium Level 142 mmol/L Potassium Level 4.2 mmol/L Chloride Level 105 mmol/L Carbon Dioxide Level 31 mmol/L Anion Gap 6.0 mmol/L Blood Urea Nitrogen 59 mg/dl Creatinine 2.16 mg/dl Est Creatinine Clear Calc Drug Dose 21.6 ml/min Estimated GFR () 30.8 Estimated GFR (Non- 26.6 BUN/Creatinine Ratio 27.5 Random Glucose 90 mg/dl Calcium Level 8.3 mg/dl Assessment and Plan Assessment and Plan: Mr. Guevara is an 86 yo male with history of cardiovascular disease who presented for shortness of breath, CXR findings, BNP elevation, and edema consistent with congestive heart failure. He continues to report feeling better today. He mentioned he feels no shortness of breath during ambulation but per nursing and technical specialist cytology, his saturations dropped to the low 80's when they measured after walking. Today he was off his nasal cannula for about an hour and was saturating approx 94% and appeared to be in no distress. Edema appears to have resolved. Echo 23Oct showed MR and . Cardiology is considering TAVR. 1: CHF exacerbation: subjectively improving, O2 saturation dropped significantly yesterday during exercise. However, appears to be tolerating room air today. These residual symptoms may take awhile to resolve, and patient may need to use O2 during the day following discharge for a period of time. Discontinuation of O2 can be determined at PCP visits. BP Continues to fluctuate , however this will be a chronic problem and will need usp management. Has received hydralazine BID for acute hypertension. Currently receiving Carvedilol 25mg BID PO. CBC notable for Hgb of 11.7, [place] [address], Troponin negative, and CK-MB negative. Plan: Continue with Coreg 25 mg BID, and Aspirin 81mg qdaily. Discharge to home with outpatient management of blood pressure. Encourage at home BP checks. May add Spironolactone for intermediate project manager management. 2:Acute elevation of BUN/Cr in the setting of chronic kidney disease: May be due to diuretic use. Shows pre-renal ratio. Encourage daily weight checks at home following discharge. Given lack of edema and subjective improvement, likely do not need Lasix or Bumex again during stay, but may want to consider adding Spironolactone for intermediate project manager therapy.BUN/Cr of 59/2.16 with eGFR of 26.6 , BMP otherwise normal. Most recent outpatient BUN/Cr [id number] of 43/1.69. Plan: Daily weight checks at home. Continue with metoprolol and carvedilol for hypertension. May add Spironolactone for intermediate project manager BP management. 3: COPD: Stable clinically. Plan: May use Duoneb as needed for symptoms 4: Vascular disease: Stable. Plan: For DVT prophylaxis, encourage ambulation as tolerated. If non-ambulatory or limited mobility, use Heparin 5000 Units Q12. 5: Health maintenance: Plan: May continue home supplements of B12, Calcium, Iron, Multivitamin Discharge planning: home
[2017-07-01] MEDS ORDERED: BUME1TAB PO (12:23)
--- NOTE | 2017-07-01 12:39 | Discharge Instructions ---
Discharge Instructions Date of Service Jul 01, 2017. Admission Reason for Admission: Acute Exacerbation Of Chf, Hypoxia Discharge Discharge Diagnosis / Problem: CHF exacerbation Discharge Goals Goal(s): Decrease discomfort, Improve function, Increase independence, Improve disease control, Learn about illness, Diagnostic testing, Therapeutic intervention Activity Recommendations Activity Limitations: resume your previous activity Exercise/Sports Limitations: as tolerated . Instructions / Follow-Up Instructions / Follow-Up Patient to be discharged home Was admitted for CHF exacerbation Please note to stop taking lasix and to start with bumex 1 mg by mouth daily Please continue to check daily weights and limit sodium intake to 2 grams daily Follow up with Dr Howell in 1 week Follow up with Dr Vazquez in 1-2 weeks Current Hospital Diet Patient's current hospital diet: Low Sodium Diet (2gm Na) Discharge Diet Recommended Diet: Low Sodium Diet (2gm Na) Pending Studies Studies pending at discharge: no Medical Emergencies . Who to Call and When: Medical Emergencies: If at any time you feel your situation is an emergency, please call 911 immediately. . Non-Emergent Contact Non-Emergency issues call your: Primary Care Provider Call Non-Emergent contact if: you have any medication questions . . "Provider Documentation" section prepared by Armand Akins. . VTE Core Measure Inpt VTE Proph given/why not?: Unfractionated heparin SQ
--- NOTE | 2017-07-01 17:41 | Discharge Summary ---
Discharge Summary Date of Service Jul 01, 2017. Discharge Summary Admission Date: Jun 28, 2017 at 20:57 Discharge Date: Jul 01, 2017 Discharge Disposition: Home Principal Diagnosis: Acute CHF exacerbation Immunizations: Have You Had Influenza Vaccine: Unknown Influenza Vaccine Date: Jun 16, 2011 History of Tetanus Vaccine?: Unknown History of Pneumococcal: Unknown Pneumococcal Date: January 14, 2011 History of Hepatitis B Vaccine: Unknown Consultations: Cardiology Medication Reconciliation New Medications: Bumetanide (Bumex) 1 Mg Tab 1 TAB PO DAILY for 30 Days, #30 TAB 5 Refills Continued Medications: Aspirin (Aspirin Ec) 81 Mg Tab 81 MG PO HS Carvedilol (Carvedilol) 25 Mg Tab 25 MG PO BID Cholecalciferol (Vitamin D) 400 Unit Tab 400 INTER.UNIT PO DAILY Cholestyramine Light (Questran Powder Light) 4 Gm Pow 4 GM PO BID PRN for Diarrhea Citalopram (Citalopram Hydrobromide) 40 Mg Tab 40 MG PO HS Cyanocobalamin (Vitamin B12 100 Mcg) 100 Mcg Tab 100 MCG PO DAILY, TAB Ferrous Sulfate (Iron) 325 Mg Tab 325 MG PO TID Home O2 Therapy (Oxygen) Gas 2 LITERS NA HS Hydralazine Hcl (Apresoline) 25 Mg Tab 25 MG PO BID Loperamide Hcl (Imodium) 2 Mg Cap 2 MG PO Q8 PRN for Diarrhea Multiple Vitamin (Multivitamin) 1 Tab Tab 1 TAB PO DAILY, TAB Prednisone Tab (Prednisone) 10 Mg Tab 10 MG PO Q2D, TAB Discontinued Medications: Furosemide (Lasix) 20 Mg Tab 40 MG PO 3XWK TAKE 40 MG EVERY THURSDAY,THURSDAY AND THURSDAY Furosemide (Furosemide) 20 Mg Tab 20 MG PO 4XWK TAKE 20 MG EVERY THURSDAY,THURSDAY,THURSDAY AND THURSDAY Discharge Exam Review of Systems: Constitutional: No fever, No chills, No sweats, No weakness ENT: No hearing loss, No unusual epistaxis, No nasal symptoms, No sore throat Respiratory: No cough, No sputum, No wheezing, No shortness of breath Cardiovascular: + edema, No chest pain, No orthopnea, No PND Abdomen: No pain, No nausea, No vomiting, No diarrhea Musculoskeletal: No joint pain, No muscle pain, No swelling, No calf pain Genitourinary - Male: No hematuria, No dysuria, No urinary frequency, No urinary urgency Neurologic: No memory loss, No paralysis, No weakness, No numbness/tingling Psychiatric: No depression symptoms, No anhedonism, No anxiety, No insomnia Endocrine: No fatigue, No excessive thirst Integumentary: No rash, No itch Physical Exam: General Appearance: WD/WN, no apparent distress Eyes: normal inspection, PERRL, EOMI Neck: supple, no adenopathy, thyroid normal, no JVD Respiratory/Chest: chest non-tender, lungs clear, normal breath sounds, no respiratory distress Cardiovascular: regular rate, rhythm, no edema, no gallop, no JVD Abdomen / GI: normal bowel sounds, non tender, soft, no organomegaly Extremities: normal inspection, no calf tenderness, normal capillary refill , + pedal edema Neurologic/Psychiatric: no motor/sensory deficits, alert, normal mood/affect , oriented x 3 Skin: normal color, warm/dry, no rash Lymphatic: no adenopathy Hospital Course An 86-year-old white male with the conditions as below: 1. Acute on chronic diastolic and systolic heart failure. 2. Diffuse wheezing with history of chronic obstructive pulmonary disease. 3. Accelerated hypertension. 4. History of atrial fibrillation. 5. History of dyslipidemia. 6. History of pulmonary hypertension. 7. History of peripheral vascular disease and history of right carotid endarterectomy. 8. History of chronic kidney disease. BUN and creatinine is in the best at the baseline. 1. CHF protocol, tele monitor, Converted IV bumex 1 mg daily to PO bumex. Continue fluid restriction to 1.5 L daily. The patient's ladies attendant, Dr. Howell has requested consultation. Continue beta jose elias. Agree with diuretics, lasix to be discontinued. OK with discharge. May need TAVR in near future, will f/u with cardiology as OP. Pt would benefit from ACEI 2. For accelerated hypertension, continue home medications and make hydralazine as needed. The patient has pleural effusion that may need to have 2 view chest x-ray to further define if needed paracentesis to remove fluid or not. 3. I discussed with patient and about the patient's condition and care plan. I answered all the questions. The patient is do not resuscitation patient. PT, OT pending. Total Time Spent: Greater than 30 minutes This includes examination of the patient, discharge planning, medication reconciliation, and communication with other providers. Discharge Instructions Please refer to the electronic Patient Visit Report (Discharge Instructions) for additional information. Additional Copies To Ananda Vazquez PA-C
== END 2017-07-01 13:52 | disposition home or self-care (01) | DRG 291 ==
LOC: C.EDB 16:24 → C.2T 20:57 → ENRESERV 21:04
PROVIDERS: ADMIT Hospitalist; ATTEND Hospitalist
DX: I13.0 Hypertensive heart and chronic kidney disease with heart failure and stage 1 through stage 4 chronic kidney disease, or unspecified chronic kidney disease (principal); I50.43 Acute on chronic combined systolic (congestive) and diastolic (congestive) heart failure; R06.2 Wheezing; J44.9 Chronic obstructive pulmonary disease, unspecified; I48.0 Paroxysmal atrial fibrillation; E78.5 Hyperlipidemia, unspecified; I27.20 Pulmonary hypertension, unspecified; I73.9 Peripheral vascular disease, unspecified; N18.3 Chronic kidney disease, stage 3 (moderate); I25.10 Atherosclerotic heart disease of native coronary artery without angina pectoris; F41.9 Anxiety disorder, unspecified; I08.3 Combined rheumatic disorders of mitral, aortic and tricuspid valves; I42.9 Cardiomyopathy, unspecified; I65.22 Occlusion and stenosis of left carotid artery; Z66 Do not resuscitate; Z95.0 Presence of cardiac pacemaker; Z87.891 Personal history of nicotine dependence; Z79.82 Long term (current) use of aspirin; Z79.899 Other long term (current) drug therapy

== ENCOUNTER 2017-07-21 09:51 | Day surgery (SDC) | payer OTHER, MEDICARE ==
[~2017-07-21] VITALS: Ht 160 cm; Wt 73.0 kg
[~2017-07-21 09:51] MED LIST changes: +BUME1TAB PO; +FERR1TAB23 PO; -FURO20TA PO; -LSX20 PO; +PRED10TA PO
[2017-07-21] MEDS ORDERED: BUME1TAB PO (10:08)
[2017-07-21 10:15] VITALS: BP 145/46; PULSE 67; TEMP 36.6; O2SAT 97; Ht 160 cm; Wt 73.0 kg
--- NOTE | 2017-07-21 10:29 | History and Physical ---
History & Physical Date of Service Jul 21, 2017. History & Physical Reason for Visit: Thoracentesis of left-sided pleural effusion HPI: Patient is an 86 yo male presenting today for left-sided thoracentesis because of persistent left-sided pleural effusion. The patient was recently admitted to [facility] for acute on chronic combined systolic and diastolic CHF, 14 lb weight gain , and shortness of breath. The patient was also experiencing abdominal bloating at the time. He has history of chronic combined CHF, moderate to severe , Mitral regurgitation, tricuspid regurgitation, pulmonary HTN, cardiomyopathy, hx of completed heart block s/p pacemaker, CAD s/p right CEA, COPD w/ O2 dependence at night, HTN, dyslipidemia, CKD III, and history of PAD. During the patients most recent hospitalization, he was noted to have persistent left-sided pleural effusion despite diuresis. He was therefore referred to the Pulmonary office for consideration of left-sided thoracentesis. Patient is on chronic aspirin therapy at 81 mg per day, but his aspirin has been stopped for procedure x 5 days. Patient denies shortness of breath chest pain, chest tightness, wheezing, palpitations, cough, or hemoptysis. Surgical Hx: Carotid thromboendarterectomy, Inguinal hernia repair, pacemaker placement PMHx: Anemia, , CAD, Afib, CKD III, Depression, Dyslipidemia, HTN, Pacemaker, proteinuria, 3rd degree AV block, Vitamin D Deficiency Social Hx: Social drinker, former smoker, , retired Current Meds: * Iron supplementation 325 mg once daily * Celexa 40 mg daily * Multivitamin * Vitamin B12 once daily * Carvedilol 12.5 mg twice daily * Lasix 20 mg in AM * Vitamin D once daily * Aspirin 81 mg daily- HELD for procedure * Losartan Potassium once daily Allergies: NKDA Physical Exam: General: Patient is awake, alert, cooperative, and in no acute distress. Well developed. Well-nourished. Head: Normocephalic, Atraumatic. ENT: PERRLA, No discharge, EOMI, Sclera normal Neck: Normal ROM. Trachea midline. No stridor Respiratory: No breath sounds heard at left base. No respiratory distress. No accessory muscle use. Cardiovascular: Regular rate and rhythm. Harsh systolic murmur. Abdomen: Nontender to palpation. Normal bowel sounds hear throughout. No guarding. Abdomen is soft and nontender Back: Normal inspection. Extremities: No edema, cyanosis. Normal ROM Neuro: Alert, Oriented x 3. CN II-XII grossly intact. Sensation and motor function grossly intact. Psych: Mood and affect are normal. Assessment and Plan: Left pleural effusion Plan for left-sided thoracentesis today.
--- NOTE | 2017-07-21 12:15 | Discharge Instructions ---
Discharge Instructions Date of Service Jul 21, 2017. Admission Reason for Admission: Large Left Pleural Effusion Discharge Discharge Diagnosis / Problem: Left sided pleural effusion Discharge Goals Goal(s): Improve function, Diagnostic testing Activity Recommendations Activity Limitations: resume your previous activity . Instructions / Follow-Up Instructions / Follow-Up [facility] with Melani Huggins Current Hospital Diet Patient's current hospital diet: Discharge Diet Recommended Diet: Regular Diet Procedures Procedures Performed: Left sided pleural effusion Pending Studies Studies pending at discharge: no Medical Emergencies . Who to Call and When: Medical Emergencies: If at any time you feel your situation is an emergency, please call 911 immediately. . Non-Emergent Contact Non-Emergency issues call your: Drafter (C[employer]) [employer] . . "Provider Documentation" section prepared by Dilan Arroyo. . VTE Core Measure Inpt VTE Proph given/why not?: Treatment not indicated
[2017-07-21 12:16] VITALS: BP 132/51; PULSE 63; TEMP 36.8; O2SAT 94
[2017-07-21 12:31] VITALS: BP 150/49; PULSE 60; O2SAT 95
[2017-07-21 12:50] VITALS: BP 146/55; PULSE 62; O2SAT 97
[2017-07-21 13:04] VITALS: BP 160/45; PULSE 66; TEMP 36.8; O2SAT 96
[2017-07-21 13:17] LABS: PLEURAL FLUID APPEARANCE CLEAR; PLEURAL FLUID COLOR YELLOW; PLEURAL FLUID MONONUC RELAT 79.3 %; PLEURAL FLUID POLYNUC 20.7 %; PLEURAL FLUID SOURCE LEFT LUNG; PLEURAL FLUID WBC (A) 307 /uL
[2017-07-21 13:18] LABS: PLEURAL FLUID TOTAL PROTEIN 2.7 g/dl
--- NOTE | 2017-07-21 13:26 | Procedure Note ---
Procedure Note Date of Service Jul 21, 2017. Procedure Note Procedures: Left sided Thoracentesis Consent: Dr Arroyo obtained via the patient and placed into the chart Pre-Procedural Dx: Left-sided pleural effusion Post-Procedural Dx: Left-sided pleural effusion Analgesia: 5cc of 1% Liquid Lidocaine Procedure: The patient was placed in an upright position and thoracic US was used to select a spot for the procedure. A spot along the posterior axillary line was marked in the 7th intercostal space. The patient was then draped and prepped in a sterile fashion. A modified Seldinger technique was then used for catheter placement. Flowing this approximately 1000 cc of clear, yellow pleural fluid was removed. The patient was then cleaned and placed at a 60 degree angle in the bed were the US was used to evaluate for possible pneumothorax. The US showed good lung sliding and starry night sign. EBL: 0 cc Assisted by: Dr. Arroyo Complications: None
== END 2017-07-21 13:07 | disposition home or self-care (01) ==
LOC: C.ACU 09:51
PROVIDERS: ATTEND Internal Medicine Critical Care Medicine
DX: J90 Pleural effusion, not elsewhere classified (principal); I25.10 Atherosclerotic heart disease of native coronary artery without angina pectoris; I12.9 Hypertensive chronic kidney disease with stage 1 through stage 4 chronic kidney disease, or unspecified chronic kidney disease; N18.3 Chronic kidney disease, stage 3 (moderate); E55.9 Vitamin D deficiency, unspecified; Z87.891 Personal history of nicotine dependence; F32.9 Major depressive disorder, single episode, unspecified; Z79.899 Other long term (current) drug therapy

== ENCOUNTER → 2017-09-21 | Outpatient (CLI) | payer OTHER, MEDICARE ==
--- NOTE | 2017-09-21 11:25 | DIAGNOSTIC IMAGING REPORT ---
TWO VIEW CHEST CLINICAL HISTORY: Pleural effusions. FINDINGS: PA and lateral chest radiographs are compared to study dated 06/29/2017. A 3-lead cardiac pacemaker is unchanged in position and partially obscures the left upper chest. The heart is enlarged and there is atherosclerotic calcification of the thoracic aorta. There is evidence of cardiac valve surgery. The pulmonary vasculature is noncongested. There are small right and moderate left pleural effusions with associated atelectasis. There is no pneumothorax. The skeletal structures are osteopenic. The bony thorax appears intact. IMPRESSION: 1. Cardiomegaly and cardiac pacemaker. There is no radiographic evidence of congestive failure. 2. Small right and moderate left pleural effusions with associated atelectasis. These are similar in size to the 06/29/2017 examination. Electronically signed by: Jay Schneider M.D. 09/21/2017 11:24 AM Dictated Date/Time: 09/21/2017 11:22 AM
== END | disposition home or self-care (01) ==
LOC: C.RAD1850 11:06
PROVIDERS: ATTEND Physician Assistant
DX: J90 Pleural effusion, not elsewhere classified (principal); I51.7 Cardiomegaly; J98.11 Atelectasis; Z95.0 Presence of cardiac pacemaker

== ENCOUNTER → 2017-09-23 | Day surgery (SDC) | payer OTHER, MEDICARE ==
[~2017-09-23] VITALS: Ht 160 cm; Wt 73.0 kg
[~2017-09-23] MED LIST changes: +CLOP1TAB15 PO; +LIDOCAINE HCL 1% 20 ML VIAL ONE
[2017-09-23 12:33] VITALS: BP_SYST 143; BP_SYST 57; BP_DIAS 57; PULSE 65; TEMP 36.6; O2SAT 90; Ht 160 cm; Wt 73.0 kg
[2017-09-23 16:00] VITALS: BP 133/70; PULSE 78; TEMP 36.6; O2SAT 94
--- NOTE | 2017-09-23 16:21 | Discharge Instructions ---
Discharge Instructions Date of Service Sep 23, 2017. Visit Reason for Visit: Pleural Effusion Discharge Discharge Diagnosis / Problem: Pleural Effusion Discharge Goals Goal(s): Improve function, Learn about illness Activity Recommendations Activity Limitations: resume your previous activity (in 24 hours) Shower/Bathe: keep incision dry 1. Do not shower until cleared to do so by Dr. Mello. Anesthesia . Post Anesthesia Instructions: If you have had General Anesthesia or IV Sedation: * Do not drive today. * Resume driving when surgeon permits. * Do not make important decisions or sign legal documents today. * Call surgeon for: 1. Temperature elevations greater than 101 degrees F. 2. Uncontrollable pain. 3. Excessive bleeding. 4. Persistent nausea and vomiting. 5. Medication intolerance (nausea, vomiting or rash). * For nausea and vomiting use only clear liquids such as: tea, soda, bouillon until nausea subsides, then gradually increase diet as tolerated. * If you have any concerns or questions, call your surgeon's office. If physician is unavailable and it is an emergency, call 911 or go to the nearest emergency room. . Instructions / Follow-Up Instructions / Follow-Up 1. Keep your scheduled appointment with Dr. Mello on October 08, 2017 @ 11: 15 am. Go to hospital 1 our before appointment to have a chest x-ray taken. 2. Visiting nurses will drain your pleurx daily. Record amount and call amount to Dr. Mello's office every . Diet Recommendations Recommended Home Diet: resume previous diet Pending Studies Studies pending at discharge: no Medical Emergencies . Who to Call and When: Medical Emergencies: If at any time you feel your situation is an emergency, please call 911 immediately. . Non-Emergent Contact Non-Emergency issues call your: Surgeon Call Non-Emergent contact if: you have a fever, your pain is not controlled, wound has increased drainage . . "Provider Documentation" section prepared by Yao Medina. .
[2017-09-23 16:25] VITALS: BP 130/66; PULSE 75; TEMP 36.6; O2SAT 93
--- NOTE | 2017-09-23 16:28 | DIAGNOSTIC IMAGING REPORT ---
CHEST 1 VW FRONT-NOT PORTABLE CLINICAL HISTORY: pleurex catheter insertion tube position COMPARISON STUDY: 09/21/2017 FINDINGS: Interval placement of a left basilar drainage tube. No significant postprocedural pneumothorax. Near-complete evacuation of the bulk of the left effusion. Trace pleural fluid on the right. Mild prominence of pulmonary vasculature. IMPRESSION: Successful placement of a left basilar drainage catheter with evacuation of the bulk of the left effusion. No significant postprocedural pneumothorax. The above report was generated using voice recognition software. It may contain grammatical, syntax or spelling errors. Electronically signed by: Daren Persaud M.D. 09/23/2017 4:27 PM Dictated Date/Time: 09/23/2017 4:26 PM
[2017-09-23 17:12] LABS: PLEURAL FLUID TOTAL PROTEIN 2.3 g/dl
--- NOTE | 2017-09-23 19:16 | OPERATIVE REPORT ---
DATE OF OPERATION: 09/23/2017 PROCEDURE: Insertion of a left PleurX catheter. PREOPERATIVE DIAGNOSIS: Recurrent left pleural effusion. POSTOPERATIVE DIAGNOSIS: Same. SURGEON: Dr. Mello. CRABBER: Yao Medina PA-C ANESTHESIA: Local. SPECIFICS OF PROCEDURE: The patient arrived at the medical treatment unit on 09/23/2017 with his daughter. He was placed in right lateral decubitus position after appropriate consent had been obtained. Ultrasound was used to find an area with a good window in which is just posterior to the mid axillary line. I had also picked another spot about 12 cm anterior and inferior. These were prepped and draped in the usual sterile fashion and after the patient had been draped sterilely, a skin wheal was raised over the posterior wanda with a 25 gauge needle, 1% Xylocaine. A large bore needle was used to anesthetize the deeper to subcutaneous tissues and pleura as well as some muscle going over the top of the rib. When free flowing clear fluid was obtained, a guidewire was inserted through the needle and needle removed. A 1 cm incision was made at this area. The skin wheal which had been raised anterior and inferior had a 1 cm incision made. 1% Xylocaine without epinephrine was used to anesthetize the subcutaneous tissues between these 2 skin incisions and a tunneler was attached to the PleurX catheter and dragged from the anterior to posterior incision and the tunneler removed. Introducer sheath with inner cannula was slid over the guidewire posteriorly and the inner cannula and guidewire removed and PleurX catheter was then slid through the peel away catheter without difficulty. Three 2-0 silk sutures were used to close the posterior incision and 3-0 silk was used to anchor the catheter to the patient's skin anteriorly. Approximately, 1300 mL of clear yellow fluid was drained. He had some reexpansion pain, but it was very mild. The chest x-ray showed complete expansion of his lung with good resolution of his fluid without any evidence of pneumothorax. He tolerated it well. Antimicrobials dressings were placed. I will see him back in the office next week to go over the cytology of the fluid as well as the studies. The pH was about 7.4, which was not indicative of infection. I attest to the content of the Intraoperative Record and any orders documented therein. Any exception s are noted below.
== END | disposition home or self-care (01) ==
LOC: C.ACU 11:33
PROVIDERS: ATTEND Surgery
DX: J90 Pleural effusion, not elsewhere classified (principal)

== ENCOUNTER → 2017-10-06 | Outpatient (CLI) | payer OTHER, MEDICARE ==
[~2017-10-06] MED LIST changes: -CHOL4POW2 PO; -IMD/2 PO; -LIDOCAINE HCL 1% 20 ML VIAL ONE
--- NOTE | 2017-10-06 10:13 | DIAGNOSTIC IMAGING REPORT ---
CHEST 2 VIEWS ROUTINE HISTORY: J90 Pleural effusion, [id number] COMPARISON: Chest 09/23/2017. FINDINGS: Trace left pleural effusion, unchanged. The right pleural effusion has resolved. No evidence for pulmonary edema. Linear density left lung base suggestive of subsegmental atelectasis. No new focal lung consolidations to suggest pneumonia. Left-sided dual-chamber pacemaker. The heart remains mildly enlarged. Aortic valve prosthesis is noted. A left basilar chest tube is noted. No pneumothorax. IMPRESSION: 1. Trace left pleural effusion, unchanged. Left basilar chest tube is in good position. No pneumothorax. 2. The right pleural effusion has resolved. Electronically signed by: Paco Fuentes M.D. 10/06/2017 10:11 AM Dictated Date/Time: 10/06/2017 10:01 AM
== END | disposition home or self-care (01) ==
LOC: C.RAD1850 09:55
PROVIDERS: ATTEND Surgery
DX: J90 Pleural effusion, not elsewhere classified (principal); Z97.8 Presence of other specified devices

== ENCOUNTER → 2017-10-27 | Outpatient (CLI) | payer OTHER, MEDICARE ==
--- NOTE | 2017-10-27 10:05 | DIAGNOSTIC IMAGING REPORT ---
CHEST 2 VIEWS ROUTINE CLINICAL HISTORY: J90 Pleural effusion, [id number] COMPARISON STUDY: 10/06/2017 FINDINGS: The heart is mildly enlarged. Aortic valve prosthesis is noted. There is a left subclavian dual-chamber central venous pacemaker. There is a left-sided pleural drain. There is been slight increase in the size of the left pleural effusion. Left basilar opacities likely are atelectatic.[ IMPRESSION: Slight increase in the size of left pleural effusion. A left-sided pleural drain remains present. Electronically signed by: Juan Murdock M.D. 10/27/2017 10:04 AM Dictated Date/Time: 10/27/2017 10:02 AM
== END | disposition home or self-care (01) ==
LOC: C.RAD1850 09:48
PROVIDERS: ATTEND Physician Assistant
DX: J90 Pleural effusion, not elsewhere classified (principal); Z97.8 Presence of other specified devices

== ENCOUNTER → 2017-11-24 | Outpatient (CLI) | payer OTHER, MEDICARE ==
--- NOTE | 2017-11-24 09:45 | DIAGNOSTIC IMAGING REPORT ---
CHEST 2 VIEWS ROUTINE CLINICAL HISTORY: 87 years-old Male presenting with PLEURAL EFFUSION. TECHNIQUE: PA and lateral views of the chest were obtained. COMPARISON: 10/27/2017. FINDINGS: Left subclavian pacer with leads to the right atrium, coronary sinus, and right ventricular apex. Prosthetic aortic valve noted. Atherosclerosis of the aortic arch. Cardiac silhouette top normal in size. Prominence of pulmonary vasculature. Minimal hazy bibasilar opacities with prominence of lung markings. Trace right and small left pleural effusions. A large bore pleural drain remains at the left lung base. No pneumothorax. Osseous structures normal. IMPRESSION: 1. Findings suggest volume overload with possible early pulmonary edema. 2. Trace right and persistent small left pleural effusions with a left pleural drain in place. Electronically signed by: Jose Durán M.D. 11/24/2017 9:44 AM Dictated Date/Time: 11/24/2017 9:43 AM
== END | disposition home or self-care (01) ==
LOC: C.RAD1850 09:35
PROVIDERS: ATTEND Physician Assistant
DX: J90 Pleural effusion, not elsewhere classified (principal)

== ENCOUNTER → 2017-12-31 | Outpatient (CLI) | payer OTHER, MEDICARE ==
--- NOTE | 2017-12-31 09:48 | DIAGNOSTIC IMAGING REPORT ---
TWO VIEW CHEST CLINICAL HISTORY: Pleural effusion. FINDINGS: PA and lateral chest radiographs are compared to study dated 11/24/2017. A 3-lead cardiac pacemaker is unchanged in position and partially obscures the left upper chest. The heart is enlarged and there is atherosclerotic calcification of the thoracic aorta. There is evidence of previous cardiac valve surgery. The pulmonary vasculature is noncongested. A pleural drain is again seen at the left lung base. There is a small residual left pleural effusion with associated atelectasis. No right pleural effusion is clearly seen. There is no pneumothorax. The skeletal structures are osteopenic. The bony thorax appears intact. IMPRESSION: 1. Cardiomegaly and cardiac pacemaker. There is no radiographic evidence of congestive failure. 2. A pleural drain is again seen at the left lung base and there is a small residual left pleural effusion. This is similar to the 11/24/2017 examination. Electronically signed by: Jay Schneider M.D. 12/31/2017 9:47 AM Dictated Date/Time: 12/31/2017 9:41 AM
== END | disposition home or self-care (01) ==
LOC: C.RAD1850 09:34
PROVIDERS: ATTEND Physician Assistant
DX: J90 Pleural effusion, not elsewhere classified (principal); I51.7 Cardiomegaly

== ENCOUNTER 2018-12-23 15:58 | Inpatient (IN) ==
[2018-12-23] MEDS ORDERED: PIPERACILL/TAZOBAC CONSULT ACTIVE PRN (17:09)
[2018-12-23] MEDS ORDERED: NITROGLYCERIN SL 0.4 MG/TAB TAB SL PRN (17:09)
[2018-12-23] MEDS ORDERED: ONDANSETRON INJ 2 MG/ML 2 ML VIAL IV PRN (17:09)
[2018-12-23] MEDS ORDERED: ALUMINUM/MAGNESIUM SUSP 30 ML UDC PO PRN (17:09)
[2018-12-23] MEDS ORDERED: POLYETHYLENE (MIRALAX) 17 GM PACK PO PRN (17:09)
[2018-12-23] MEDS ORDERED: PIPERACILLIN/TAZOBACTAM 2.25 GM in DEXTROSE 5% 100 ML IV SCH (17:15)
--- NOTE | 2018-12-23 17:55 | History & Physical Report ---
Date of Service December 23, 2018 Assessment & Plan (1) Hypertension: Patient's hypertension is also controlled with medication use for heart failure these include this includes hydralazine and carvedilol and Bumex (2) CHF (congestive heart failure): Patient is a history of chronic systolic and diastolic failure he may have a component of acute heart failure at this time. He is known to have severe calcific aortic stenosis as well as ejection fraction of 35-40% range. He typically follows with Dr. Shelton. He will be given an additional dose of Bumex 0.5 mg on the evening of 12/23 then will resume his typical dose of 1 mg a day but changed to route to IV. Patient otherwise is on carvedilol 37.5 twice daily which be continued hydralazine 25 twice a day. (3) Pneumonia: According to James Ng, there is concern for possible infiltrate associate with his left base. This would be consistent with pneumonia. He however does not have any fever white blood cell count is pending at this time will cover antibiotics at this time for broad spectrum such as gram-negative or MRSA and we reviewed the chest x-ray as well as his clinical symptoms in the morning. Blood cultures were obtained (4) DVT prophylaxis: Heparin for DVT prophylaxis at this time (5) CKD (chronic kidney disease), stage IV: History of Present Illness Primary Care Provider: Ananda Vazquez 88-year-old male sent over from the physician's office with decreased strength concern for weakness nonproductive cough. The patient has a left-sided chest wall Pleurx catheter placed which he drains every other day which was placed for transudate of effusions from heart failure. Patient follows with Dr. Glaser for his cardiac issues. Patient states that he has been getting fluid out on every other day basis has been instructed. He has had no recent weight gain or or intolerance of his medications. He said no increased salt intake. He said no recent chest pain or sensations of palpitations. In the office the patient had some slight yellow slough around the Pleurx site but did not appear actively infected and the physician's speech assistant at Dr. Arteaga's office, James Medina, with 150 cc of fluid which is sent for culture. I visited the patient in his hospital room he was only having complaints of having a cough. His family at bedside states the cough reminds them of when he has heart failure. Patient also notes increased swelling to his lower extremities. Allergies Allergy/AdvReac Type Severity Reaction Status Date / Time No Known Allergies Allergy Verified 09/01/18 14:06 Home Medications Home Medications Medication Instructions Recorded Confirmed Type aspirin 81 mg PO [id number] 09/01/18 09/01/18 History carvedilol 12.5 mg PO BID 09/01/18 09/01/18 History carvedilol 25 mg PO BID 09/01/18 09/01/18 History cholecalciferol (vitamin D3) 400 unit PO DAILY 09/01/18 09/01/18 History [Vitamin D3] cyanocobalamin (vitamin B-12) 100 mcg PO DAILY 09/01/18 09/01/18 History [Vitamin B-12] ferrous sulfate 325 mg PO TID 09/01/18 09/01/18 History hydralazine 25 mg PO BID 09/01/18 09/01/18 History multivitamin 1 tab PO DAILY 09/01/18 09/01/18 History Past Med/Surg History Medical History Hypertension (Chronic) Hyperlipidemia (Chronic) Mild pulmonary hypertension (Chronic) COPD (chronic obstructive pulmonary disease) (Chronic) CHF (congestive heart failure) (Acute) PNA (pneumonia) (Acute) Acute on chronic renal failure (Acute) Atrial fibrillation Surgical History No significant past surgical history Social History Preferred Language: Macedonian Communication Ability: Impaired Beliefs That Will Affect Care: None marital status: Current Living Situation: Alone Current Living Situation Comment: Pt's daughter, Camille, checks in frequently current occupational status: retired Other Information That Helps Us Care for You: No Feels Safe at Home: Yes Safety Concerns: Feels Safe At This Time Smoking Status: Former smoker Hx Alcohol Use: No Hx Substance Use: No Review of Systems Review of Systems: ROS: well nourished well developed. Mildly dyspneic speaks in shortened sentences No double vision blurry vision No problems with speech or swallowing No palpitations, chest pain or pressure has lower extremity swelling which is worse than usual No Wheezing feels short of breath No abdominal pain nausea vomiting diarrhea No burning urine urine frequency or changes in color No focal joint pain or muscle pain No skin rashes or oral lesions No unusual bruising or bleeding No focused back pain or numbness or loss of strength No changes in memory or confusion Physical Exam Physical Exam: The patient appeared well nourished and normally developed. He is in mild distress Vital signs as documented. Head exam is unremarkable. normocephalic, atraumatic Neck is without jugular venous distension although JVD is difficult to assess as he had bilateral carotid endarterectomy with scars, thyromegaly, or lymphademopathy Lungs are bibasilar Rales Cardiac exam reveals Rhythm is regular. Heart murmur is heard first and second heart sounds normal. 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
[2018-12-23 17:59] LABS: Basophils # (auto) 0.01 K/uL (0-0.2); Basophils % (auto) 0.1 %; Eosinophils # (auto) 0.12 K/uL (0-0.5); Hematocrit (blood only) 31.3 % (42-52); Immature Granulocytes % (auto) 0.9 %; Lymphocytes # (auto) 1.39 K/uL (1.2-3.4); Lymphocytes % (auto) 11.9 %; Mean Corpuscular Volume 97.8 fL (80-100); Mean Platelet Volume 9.6 fL (7.4-10.4); Monocytes # (auto) 1.33 K/uL (0.11-0.59); Monocytes % (auto) 11.3 %; Neutrophils # (auto) 8.77 K/uL (1.4-6.5); Neutrophils % (auto) 74.8 %; Platelet Count 248 K/uL (130-400); RDW Coefficient of Variation 13.8 % (11.5-14.5); RDW Standard Deviation 49.1 fL (36.4-46.3); White Blood Count 11.72 K/uL (4.8-10.8)
[2018-12-23 18:08] LABS: Mean Corpuscular Hgb Conc 31.9 g/dL (32-36)
[2018-12-23] MEDS ORDERED: VANCOMYCIN CONSULT ACTIVE PRN (18:10)
[2018-12-23] MEDS ORDERED: BUMETANIDE 0.5 MG in SYRINGE 0 ML IV ONE (18:15)
[2018-12-23 18:17] LABS: Alanine Aminotransferase 25 U/L (12-78); Albumin Level 2.6 gm/dl (3.4-5.0); Aspartate Aminotransferase 12 U/L (15-37); BUN Creatinine Ratio 29.6 (10-20); Blood Urea Nitrogen 67 mg/dl (7-18); Calcium 8.7 mg/dl (8.5-10.1); Carbon Dioxide 27 mmol/L (21-32); Chloride 104 mmol/L (98-107); Est GFR (African American) 28.6; Est GFR (Non-African American) 24.7; Glucose 102 mg/dl (70-99); Potassium 5.1 mmol/L (3.5-5.1); Sodium 133 mmol/L (136-145)
[2018-12-23 18:23] LABS: Albumin Globulin Ratio 0.6 (0.9-2); Alkaline Phosphatase 59 U/L (45-117); Bilirubin,Total 0.5 mg/dl (0.2-1); Globulin 4.2 gm/dl (2.5-4.0); NT Pro B Type Natriuretic Pept 16679 pg/ml (0-1800); Total Protein 6.8 gm/dl (6.4-8.2); Troponin I 0.017 ng/ml (0-0.045)
[2018-12-23 18:30] LABS: INR 1.1 (0.9-1.1); Prothrombin Time 11.4 Seconds (9.0-12.0)
[2018-12-23] MEDS ORDERED: PIPERACILLIN/TAZOBACTAM 3.375 GM in DEXTROSE 5% 100 ML IV ONE (18:30)
[2018-12-23] MEDS: PATIENT'S HEIGHT AND/OR WEIGHT NEEDED SCH (19:11)
[2018-12-23] MEDS ORDERED: VANCOMYCIN HCL 1,750 MG in SODIUM CHLORIDE 0.9% 500 ML IV SCH (21:00)
[2018-12-23] MEDS: CARVEDILOL 25 MG TAB PO SCH (21:44)
[2018-12-23] MEDS: FERROUS SULFATE 325 MG TAB PO SCH (21:44)
[2018-12-23] MEDS: CARVEDILOL 12.5 MG TAB PO SCH (21:44)
[2018-12-23] MEDS: HEPARIN SOD 5,000 UNIT/0.5 ML VIAL SQ SCH (21:47)
[2018-12-24] MEDS: PIPERACILLIN/TAZOBACTAM 3.375 GM in DEXTROSE 5% 100 ML IV SCH ×2 (03:10→14:41)
--- NOTE | 2018-12-24 06:15 | Consultation Report ---
DATE OF CONSULTATION: 12/23/2018 REASON FOR CONSULTATION: Questionable infection of left PleurX catheter. HISTORY OF PRESENT ILLNESS: Dallin Guevara is a delightful 88-year-old male that I know well. He has had a PleurX catheter in his left pleural cavity for 15 months for recalcitrant pleural effusion which is probably related to his kidney failure and perhaps his heart. It is a transudate. The family is very concerned because he drained some fluid from around this; however, it was only a 1/4 sized amount of fluid over a 2-day period. It is dry now. His x-ray really does not look much different. He has had a chill. He is on room air and states his breathing is fine. DATA: His white count 11,720. His BUN is 67. His creatinine 2.27. He is followed closely by Dr. Nj Merrill. His beta natriuretic peptide is over 16,000. Albumin is low at 2.6. ASSESSMENT AND PLAN: At this point, we are going to continue on antibiotics and wait for the cultures to come back from his pleural fluid. It does not appear to me that he has an empyema, but we will see what his culture shows.
--- NOTE | 2018-12-24 07:38 | Hospitalist Progress Note ---
Date of Service December 24, 2018 Assessment & Plan (1) CHF (congestive heart failure): Patient is a history of chronic systolic and diastolic failure he may have a component of acute heart failure at this time. He is known to have severe calcific aortic stenosis as well as ejection fraction of 35-40% range. He typically follows with Dr. Shelton. Bumex 1 mg IV a day after an additional dose of 0.5 mg on 12/23 shows no worsening or distress with his renal dysfunction . Patient otherwise is on carvedilol 37.5 twice daily which be continued hydralazine 25 twice a day. (2) Hypertension: Patient's hypertension is also controlled with medication use for heart failure these include this includes hydralazine and carvedilol and Bumex (3) Pneumonia: According to James Ng, there is concern for possible infiltrate associate with his left base. This would be consistent with pneumonia. He however does not have any fever white blood cell count is pending at this time will cover antibiotics at this time for broad spectrum such as gram-negative or MRSA we will de-escalate his MRSA coverage if his nasal swab is negative. He is clinically improving having less coughing (4) DVT prophylaxis: Heparin for DVT prophylaxis at this time (5) CKD (chronic kidney disease), stage IV: Concern for diuretic use and renal function will be followed closely with appropriate dosing of medications were indicated including antibiotics Subjective Patient feels quite well today's having no new complaints or problems he is ambulate about the room he has no discomfort at his Pleurx catheter site Review of Systems Review of Systems: ROS: well nourished well developed. No double vision blurry vision No problems with speech or swallowing No palpitations, chest pain or pressure No Wheezing still with minor dyspnea on exertion No abdominal pain nausea vomiting diarrhea changes in appetite or weight No burning urine urine frequency or changes in color No focal joint pain or muscle pain No skin rashes or oral lesions No unusual bruising or bleeding No focused back pain or numbness or loss of strength No changes in memory or confusion Physical Exam Physical Exam: The patient appeared well nourished and normally developed. Vital signs as documented. Head exam is unremarkable. normocephalic, atraumatic Neck is without jugular venous distension, thyromegaly, or lymphademopathy Lungs are clear decreased breath sounds at the left base Cardiac exam reveals rate controlled but irregularly irregular. First and second heart sounds normal. Abdominal exam reveals normal bowel sounds, no masses, no organomegaly Extremities are mildly edematous and both pedal pulses are present Neurologic exam is A&Ox3, no focal deficits, strength is equal bilateral Psychologically seems neither anxious or depressed Skin is warm Dry without bruises or lesions Results & Data Vital Signs (Past 12 Hours) Vital Signs Temp Pulse Resp BP Pulse Ox 12/24/18 04:55 36.7 C 80 18 156/74 H 96 12/23/18 23:30 37.3 C 80 17 130/84 91 12/23/18 21:42 144/65 H 12/23/18 19:56 37.3 C 20 155/66 H 90
[2018-12-24] MEDS: ASPIRIN 81 MG ECTAB PO SCH (07:52)
[2018-12-24] MEDS: BUMETANIDE 1 MG in SYRINGE 0 ML IV SCH (07:52)
[2018-12-24] MEDS: CARVEDILOL 12.5 MG TAB PO SCH ×2 (07:53→21:22)
[2018-12-24] MEDS: CARVEDILOL 25 MG TAB PO SCH ×2 (07:53→21:23)
[2018-12-24] MEDS: MULTIVITAMIN TAB PO SCH (07:54)
[2018-12-24] MEDS: CHOLECALCIFEROL (VITAMIN D) 400 UNITS TABLET PO SCH (07:54)
[2018-12-24] MEDS: CYANOCOBALAMIN (VITAMIN B-12) 100 MCG TABLET PO SCH (07:54)
[2018-12-24] MEDS: FERROUS SULFATE 325 MG TAB PO SCH ×3 (07:54→21:23)
[2018-12-24 08:24] LABS: Creatinine Clr Calc Pharmacy 17.1 ml/min; Est GFR (African American) 24.4
--- NOTE | 2018-12-24 09:15 | Nephrology Consultation ---
Date of Consultation December 24, 2018 Assessment & Plan (1) CKD (chronic kidney disease), stage IV: -- Baseline creatinine 2.5-3.0 mg/dL. PUrinary protein excretion has been approximately 0.7-1.6 g/day. 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 Kidney function is stable. Volume status and electrolyte balance remains acceptable at this time. -- The patient has discussed benefits/risks/alternatives to IHD in detail with Dr. Merrill in the past. He has attended education classes at the [facility] dialysis unit. He would like to pursue IHD if his kidney function worsens. -- Mr. Guevara was evaluated by Dr. Melchor for AVF creation in the past. He has L subclavian artery stenosis. He will require a multistep procedure including [employer] of L subclavian vein and AVF creation. Procedure may be complex due to pacemaker. It is recommended postponing intervention until HD is absolutely needed. (2) Cardiorenal syndrome with renal failure: -- Patient required TAVR 08/23 due to progressive . Following surgery developed a large recurrent L pleural effusion. He now has a Pleur-x catheter in place. Echocardiogram 09/24 revealed a small noncompliant LV. -- Diuretic therapy in the past has been met w/ worsening kidney function. -- Will monitor with response to diuretics during admission. -- Overall volume status appears appropriate to slightly hypervolemic. (3) Hypertension: -- Patient's hypertension is also controlled with medication use for heart failure these include this includes hydralazine and carvedilol and Bumex (4) CHF (congestive heart failure): -- History of predominately chronic diastolic failure and may have a component of acute heart failure at this time. He was given an additional dose of Bumex 0.5 mg yesteday evening and resumed his typical dose of 1 mg a day today. (5) Chronic diastolic CHF (congestive heart failure): History of Present Illness Reason for Consultation: Chronic kidney disease Requesting Physician: Dilan Arenas MD Attending Physician: Dilan Arenas MD History of Present Illness Mr. Guevara is an 88-year-old male with CKD IV A3. Baseline creatinine has been ~ 2.5-3.0 mg/dL. Urinary protein excretion has been approximately 0.7-1.6 g/day. The patient follows in the nephrology clinic with Dr. Merrill. Mr. Guevara was recently evaluated in the clinic in October. Renal ultrasound previously demonstrated normal size kidneys with multiple bilateral cysts. CKD has been attributed to microvascular disease and chronic cardiorenal syndrome. Medical history is notable for requiring TAVR at [facility] 08/23. He has known diastolic dysfunction as well as a chronic large L pleural effusion. Fluid has been transudative. Pleur-x catheter placement was performed by Dr. Mello approximately 15 months ago. The patient has a long-standing history of arterial hypertension as well as peripheral arterial disease. He is status post bilateral carotid endarterectomy. Hypertension is managed with Carvedilol and Hydralazine. He was maintained on a diuretic regimen of Bumex 1 mg every other day. History also includes sick sinus syndrome and is s/p biventricular pacemaker implantation. He is not on any chronic anticoagulation therapy due to risk of falling. The patient was sent from the CT surgery clinic yesterday for admission due to increased dyspnea and fluid drainage around the Pleurx site. CXR demonstrates slight reaccumulation of loculated effusion left mid and lower lung as well as potential developing left basilar infiltrate with unchanged position of a left basilar drainage catheter. 0.5 mg of IV Bumex was provided yesterday evening to encourage diuresis. An even fluid balance was documented. 1 mg IV Bumex was provided this morning. Dallin feels reasonably well this morning. He admits to some weakness. He has some increased dyspnea. He denies fevers or chills. He has no urinary complaints. Dallin denies any edema. Creatinine remains at baseline 2.6 mg/dL. Metabolic profile is otherwise acceptable. Allergies Allergy/AdvReac Type Severity Reaction Status Date / Time No Known Allergies Allergy Verified 09/01/18 14:06 Home Medications Home Medications Medication Instructions Recorded Confirmed Type aspirin 81 mg PO [id number] 09/01/18 09/01/18 History carvedilol 12.5 mg PO BID 09/01/18 09/01/18 History carvedilol 25 mg PO BID 09/01/18 09/01/18 History cholecalciferol (vitamin D3) 400 unit PO DAILY 09/01/18 09/01/18 History [Vitamin D3] cyanocobalamin (vitamin B-12) 100 mcg PO DAILY 09/01/18 09/01/18 History [Vitamin B-12] ferrous sulfate 325 mg PO TID 09/01/18 09/01/18 History hydralazine 25 mg PO BID 09/01/18 09/01/18 History multivitamin 1 tab PO DAILY 09/01/18 09/01/18 History Patient History Medical History Hypertension (Chronic) Hyperlipidemia (Chronic) Mild pulmonary hypertension (Chronic) COPD (chronic obstructive pulmonary disease) (Chronic) CHF (congestive heart failure) (Acute) PNA (pneumonia) (Acute) Acute on chronic renal failure (Acute) Atrial fibrillation Surgical History No significant past surgical history Social History Preferred Language: Chilean Communication Ability: Impaired Beliefs That Will Affect Care: None marital status: Current Living Situation: Alone Current Living Situation Comment: Pt's daughter, Camille, checks in frequently current occupational status: retired Other Information That Helps Us Care for You: No Feels Safe at Home: Yes Safety Concerns: Feels Safe At This Time Smoking Status: Former smoker Hx Alcohol Use: No Hx Substance Use: No Review of Systems Review of Systems: All systems reviewed & are unremarkable except as noted in HPI & below Physical Exam Constitutional: + frail appearing; no acute distress Eyes: no scleral abnormality and no corneal abnormality ENMT: Mouth: no oral mucosal abnormality and oral mucous membranes not dry Neck: normal visual inspection and trachea midline Respiratory: no respiratory distress Auscultation: + diminished lung sounds and + rales Cardiovascular: Rate/Rhythm: regular rate and + irregularly irregular Heart Sounds: normal S1 and normal S2; no gallop and no murmur Extremities: + edema trace pedal Gastrointestinal (Abdomen): Inspection/Auscultation: abdomen normal to inspection Percussion/Palpation: abdomen soft; abdomen nontender Musculoskeletal: Extremities: no cyanosis and no clubbing Skin: + turgor decreased; no rashes Neurologic: Motor/Sensory: no tremor and no asterixis Psychiatric: Orientation: alert Affect: euthymic affect Results & Data Vital Signs (Past 12 Hours) Vital Signs Temp Pulse Resp BP Pulse Ox 12/24/18 07:39 36.7 C 80 18 155/73 H 97 12/24/18 04:55 36.7 C 80 18 156/74 H 96 12/23/18 23:30 37.3 C 80 17 130/84 91 12/23/18 21:42 144/65 H Laboratory Results Laboratory Results - last 24 hr 12/23/18 12/23/18 12/23/18 17:20 17:25 17:25 WBC 11.72 H RBC 3.20 L Hgb 10.0 L Hct 31.3 L MCV 97.8 MCH 31.3 MCHC 31.9 L RDW Std Deviation 49.1 H RDW Coeff of Maya 13.8 Plt Count 248 MPV 9.6 Immature Gran % (Auto) 0.9 Neut % (Auto) 74.8 Lymph % (Auto) 11.9 Wood % (Auto) 11.3 Eos % (Auto) 1.0 Baso % (Auto) 0.1 Immature Gran # (Auto) 0.10 H Neut # (Auto) 8.77 H Lymph # (Auto) 1.39 Wood # (Auto) 1.33 H Eos # (Auto) 0.12 Baso # (Auto) 0.01 PT 11.4 INR 1.1 Sodium 133 L Potassium 5.1 Chloride 104 Carbon Dioxide 27 Anion Gap 2.0 L BUN 67 H Creatinine 2.27 H Est Cr Clr Drug Dosing Not Reportable Est GFR ( Amer) 28.6 Est GFR (Non-Af Amer) 24.7 BUN/Creatinine Ratio 29.6 H Glucose 102 H Calcium 8.7 Total Bilirubin 0.5 AST 12 L ALT 25 Alkaline Phosphatase 59 Troponin I 0.017 NT-Pro-B Natriuret Pep 43142 H Total Protein 6.8 Albumin 2.6 L Globulin 4.2 H Albumin/Globulin Ratio 0.6 L Random Vancomycin 12/24/18 12/24/18 07:47 07:52 WBC RBC Hgb Hct MCV MCH MCHC RDW Std Deviation RDW Coeff of Maya Plt Count MPV Immature Gran % (Auto) Neut % (Auto) Lymph % (Auto) Wood % (Auto) Eos % (Auto) Baso % (Auto) Immature Gran # (Auto) Neut # (Auto) Lymph # (Auto) Wood # (Auto) Eos # (Auto) Baso # (Auto) PT INR Sodium Potassium Chloride Carbon Dioxide Anion Gap BUN Creatinine 2.59 H D Est Cr Clr Drug Dosing 17.1 Est GFR ( Amer) 24.4 Est GFR (Non-Af Amer) 21.0 BUN/Creatinine Ratio Glucose Calcium Total Bilirubin AST ALT Alkaline Phosphatase Troponin I NT-Pro-B Natriuret Pep Total Protein Albumin Globulin Albumin/Globulin Ratio Random Vancomycin 21.3
[2018-12-24] MEDS: HEPARIN SOD 5,000 UNIT/0.5 ML VIAL SQ SCH ×2 (10:03→21:23)
--- NOTE | 2018-12-24 10:21 | XRay Report ---
XR chest 1V portable CLINICAL HISTORY: left pleurx pleural effusion COMPARISON STUDY: 12/23/2018 FINDINGS: Left basilar drainage catheter unchanged in position. Slight decrease in volume of a left b asilar effusion. Right lung remains clear. There is a permanent bipolar cardiac pacemaker. IMPRESSION: Slight decrease in volume of a left pleural effusion. Unchanging location of the left ba silar drainage catheter. The above report was generated using voice recognition software. It may contain grammatical, syntax or spelling errors. Electronically signed by: Daren Persaud M.D. 12/24/2018 10:20 AM
--- NOTE | 2018-12-24 10:42 | Progress Note ---
DATE: 12/24/2018 Mr. Guevara was seen today. He looks fine. We do not see any evidence of organisms on his Gram stain. His white count yesterday was 11,720 with a hemoglobin of 10.0, which is status quo for him. His creatinine is also fairly status quo at 2.27 yesterday, 2.59 today. We are draining very little out of his chest tube, but I think his x-ray looks good. I am going to obtain a CT scan to make sure he does not have any fluid there. It may be that we are able to pull this tube. We will see what his CT scan without contrast looks like a little bit later on today.
--- NOTE | 2018-12-24 11:10 | CT Scan Report ---
CT SCAN OF THE CHEST WITHOUT IV CONTRAST CLINICAL HISTORY: Dyspnea. Pleural effusion. COMPARISON STUDY: Chest x-ray dated 12/24/2018. TECHNIQUE: CT scan of the thorax was performed from the thoracic inlet to the upper abdomen. Images are reviewed in the axial, sagittal, and coronal planes. IV contrast was not administered for this ex amination as per the referring clinician. A dose lowering technique was utilized adhering to the [facility] [place]. CT DOSE: 255.70 mGy.cm FINDINGS: Thyroid: Imaged portions of the thyroid gland are normal in size and attenuation. Thoracic aorta: There is advanced atherosclerotic calcification of the thoracic aorta, which is brent l in caliber and demonstrates standard 3-vessel arch anatomy. Heart: A 3-lead cardiac pacemaker is present in the left chest wall. Postoperative change is seen at the aortic valve. The heart is enlarged and there is a small pericardial effusion. The coronary arter ies and mitral annulus are densely calcified. The main pulmonary arteries are dilated suggesting pulm onary artery hypertension. There is diminished attenuation of the cardiac blood pool as compared to t he myocardium suggesting anemia. Lungs and pleural spaces: Emphysematous change is noted. Diffuse subpleural reticulation is also seen . There is a trace right pleural effusion. There is a small and at least partially loculated pleural effusion at the left lung base with a pleural catheter in place. The basilar component measures a max imum of 13 x 7 cm in maximum dimension. There is overlying pleural thickening and left basilar consol idation. The catheter enters the pleural space posterolaterally between the 8th and 9th ribs. Partial ly loculated pleural fluid tracks towards the left apex end along the left major fissure. No pneumoth orax is seen. Mediastinum: There are numerous prominent mediastinal lymph nodes which measure up to 9 mm in short a xis. Jenni: Not well assessed without IV contrast. Axillae: There is no axillary lymphadenopathy. Upper abdomen: A 2.5 cm cyst is partially imaged in the upper pole of the right kidney. There is a ti ny hiatal hernia. Diverticula are noted in the partially imaged left colon. Skeletal structures: The skeletal structures are osteopenic. 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 No lytic or blastic bony lesions are seen. IMPRESSION: 1. Cardiomegaly and AICD. There is no radiographic evidence of congestive failure. 2. Emphysema. 3. There is a loculated pleural effusion/collection at the left lung base as detailed above with a pl eural catheter in place. 4. There is associated pleural thickening at the left lung base and left basilar consolidation. This likely represents atelectasis. Correlate clinically for evidence of superimposed infection. 5. A trace right pleural effusion is noted. 6. Additional findings as above. Electronically signed by: Jay Schneider M.D. 12/24/2018 11:09 AM
[2018-12-24] MEDS: PATIENT'S HEIGHT AND/OR WEIGHT NEEDED SCH (15:45)
[2018-12-24] MEDS: ALTEPLASE, RECOMBINANT 10 MG in SYRINGE 50 ML IPL SCH (19:34)
[2018-12-24] MEDS: DORNASE ALFA 5 ML in SYRINGE 25 ML IPL SCH (21:08)
--- NOTE | 2018-12-24 21:14 | Progress Note ---
DATE: 12/24/2018 Mr. Guevara looks better. However, his CT scan showed a loculated effusion and a PleurX catheter is in it. Despite the fact I do not think this is infected. The PleurX catheter is draining very little. We only got about 25 mL of serous fluid. We are going to institute the MIST-2 protocol in an attempt to drain this loculated effusion. I discussed this with the patient, his daughter and his granddaughter. EBONI
[2018-12-25] MEDS: PIPERACILLIN/TAZOBACTAM 3.375 GM in DEXTROSE 5% 100 ML IV SCH (03:03)
[2018-12-25] MEDS: ALTEPLASE, RECOMBINANT 10 MG in SYRINGE 50 ML IPL SCH ×2 (06:32→19:35)
--- NOTE | 2018-12-25 07:12 | XRay Report ---
XR chest 1V portable CLINICAL HISTORY: effusion COMPARISON STUDY: 12/24/2018 FINDINGS: The heart remains enlarged. There is a left subclavian dual-chamber central venous pacemake r. Aortic valve prosthesis is visualized. There is a persistent small left pleural effusion with slig ht improvement in the aeration of the left lower lobe. There is no change the position of the left ba silar pleural drain[ IMPRESSION: 1. No change the position of the left-sided pleural drain 2. Persistent left-sided pleural fluid/thickening with slight interval improvement in the aeration le ft lower lobe Electronically signed by: Juan Murdock M.D. 12/25/2018 7:11 AM
[2018-12-25] MEDS: DORNASE ALFA 5 ML in SYRINGE 25 ML IPL SCH ×2 (07:56→20:41)
[2018-12-25] MEDS: CYANOCOBALAMIN (VITAMIN B-12) 100 MCG TABLET PO SCH (08:08)
[2018-12-25] MEDS: FERROUS SULFATE 325 MG TAB PO SCH ×3 (08:08→20:42)
[2018-12-25] MEDS: MULTIVITAMIN TAB PO SCH (08:08)
[2018-12-25] MEDS: CARVEDILOL 25 MG TAB PO SCH ×2 (08:09→20:42)
[2018-12-25] MEDS: CARVEDILOL 12.5 MG TAB PO SCH ×2 (08:09→20:43)
[2018-12-25] MEDS: CHOLECALCIFEROL (VITAMIN D) 400 UNITS TABLET PO SCH (08:09)
[2018-12-25] MEDS: HEPARIN SOD 5,000 UNIT/0.5 ML VIAL SQ SCH ×3 (08:10→20:52)
[2018-12-25] MEDS: BUMETANIDE 1 MG in SYRINGE 0 ML IV SCH (08:10)
[2018-12-25 08:11] LABS: BUN Creatinine Ratio 26.2 (10-20); Calcium 8.3 mg/dl (8.5-10.1); Creatinine Clr Calc Pharmacy 17.5 ml/min; Est GFR (African American) 25.1; Est GFR (Non-African American) 21.6; Potassium 4.7 mmol/L (3.5-5.1)
--- NOTE | 2018-12-25 10:36 | Nephrology Progress Note ---
Date of Service December 25, 2018 Assessment & Plan (1) CKD (chronic kidney disease), stage IV: -- Baseline creatinine 2.5-3.0 mg/dL. Urinary protein excretion has been approximately 0.7-1.6 g/day. 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 Kidney function is stable. Volume status and electrolyte balance remains acceptable at this time. -- The patient has discussed benefits/risks/alternatives to IHD in detail in the past. He has attended education classes at the [facility] dialysis unit. He would like to pursue IHD if his kidney function worsens. -- Mr. Guevara was evaluated by Dr. Melchor for AVF creation in the past. He has L subclavian artery stenosis. He will require a multistep procedure including CHAIRMAN [employer] CEO of L subclavian vein and AVF creation. Procedure may be complex due to pacemaker. It is recommended postponing intervention until HD is absolutely needed. (2) Cardiorenal syndrome with renal failure: -- Patient required TAVR 08/23 due to progressive . Following surgery developed a large recurrent L pleural effusion. He now has a Pleur-x catheter in place. -- Echocardiogram 12/24/18: LVEF 40 - 45%, biartrial enlargement, mod MR/TR, PASP 46 mmHG -- Chest CT without overt CHF. Will convert Bumex to 1 mg po QOD (outpatient dose) -- Will monitor with response to diuretics during admission. (3) Hypertension: -- Patient's hypertension is also controlled with medication use for heart failure these include this includes hydralazine and carvedilol and Bumex (4) CHF (congestive heart failure): -- History of predominately chronic diastolic failure (5) Chronic diastolic CHF (congestive heart failure): Subjective Mr. Guevara was seen & examined in his hospital room this morning. He reports that his breathing is improved. He currently denies fever, dyspnea, angina or uremic symptoms. Review of Systems Constitutional: no fever Respiratory: no dyspnea Cardiovascular: no chest pain at rest Gastrointestinal: no abdominal pain and no diarrhea/loose stools Physical Exam Constitutional: + frail appearing Eyes: PERRL, conjunctivae normal, anicteric sclerae Neck: trachea midline, no thyromegaly Respiratory: normal respiratory effort, lungs clear to auscultation Cardiovascular: Rate/Rhythm: regular rate and regular rhythm Gastrointestinal (Abdomen): Inspection/Auscultation: abdomen not distended Percussion/Palpation: abdomen soft; abdomen nontender and no guarding Results & Data Vital Signs (Past 12 Hours) Vital Signs Temp Pulse Pulse Resp BP Pulse Ox 12/25/18 08:00 37.3 C 81 14 120/68 90 12/25/18 07:00 80 12/25/18 04:02 37.4 C 80 20 112/61 93 12/24/18 22:56 37.1 C 80 20 121/66 97 Laboratory Tests 12/23/18 12/25/18 17:25 07:09 WBC 11.72 H Hgb 10.0 L Hct 31.3 L Plt Count 248 Sodium 134 L Potassium 4.7 Chloride 101 Carbon Dioxide 24 BUN 66 H Creatinine 2.53 H Glucose 120 H Calcium 8.3 L CXR 12/24: The heart remains enlarged. There is a left subclavian dual-chamber central venous pacemaker. Aortic valve prosthesis is visualized. There is a persistent small left pleural effusion with slight improvement in the aeration of the left lower lobe. There is no change the position of the left basilar pleural drain Chest CT 12/24: 1. Cardiomegaly and AICD. There is no radiographic evidence of congestive failure. 2. Emphysema. 3. There is a loculated pleural effusion/collection at the left lung base as detailed above with a pleural catheter in place. 4. There is associated pleural thickening at the left lung base and left basilar consolidation. This likely represents atelectasis. Correlate clinically for evidence of superimposed infection. 5. A trace right pleural effusion is noted.
--- NOTE | 2018-12-25 11:23 | Surgery Progress Note ---
Date of Service December 25, 2018 Assessment & Plan (1) Pleural effusion, left: -concern noted in office on 12/23/18 for developing pneumonia on side of pleurex -pleural fluid was cultured and thus far is (-) for growth and no organism noted on gram stain -will continue antibiotic until final cultures are back--currently receiving zosyn -CT scan on 12/24/18 showed loculated effusion so MIST-2 protocol implemented (will finish on 12/27/18): -once finished will consider repeat CT scan -ambulation encouraged -sub-q heparin in place for DVT prevention Subjective Pt. notes he is doing well. he is not SOB. No fevers, shakes, chills. Discussed with RN and she does not note any issues at this time. He is tolerating the MIST protocol without any difficulty. Physical Exam Constitutional: well developed and well nourished; no acute distress Respiratory: no respiratory distress and no labored breathing BS only slightly decreased at bases CXR today shows some improved aeration at let base Results & Data Vital Signs (Past 12 Hours) Vital Signs Temp Pulse Pulse Resp BP Pulse Ox 12/25/18 08:00 37.3 C 81 14 120/68 90 12/25/18 07:00 80 12/25/18 04:02 37.4 C 80 20 112/61 93
[2018-12-25] MEDS: BUMETANIDE 1 MG TAB PO SCH (12:41)
--- NOTE | 2018-12-25 14:59 | Hospitalist Progress Note ---
Date of Service December 25, 2018 Assessment & Plan (1) CHF (congestive heart failure): Patient is a history of chronic systolic and diastolic failure he also has severe calcific aortic stenosis as well as ejection fraction of 35-40% range. He typically follows with Dr. Shelton. Patient will return to oral Bumex dosing of 12/25 . Patient otherwise is on carvedilol 37.5 twice daily which be continued hydralazine 25 twice a day. (2) Hypertension: Patient's hypertension is also controlled with medication use for heart failure these include this includes hydralazine and carvedilol and Bumex (3) Pneumonia: According to James Ng, there is concern for possible infiltrate associate with his left base. This would be consistent with pneumonia. Is clinically improved will transition to oral levofloxacin at this time (4) DVT prophylaxis: Heparin for DVT prophylaxis at this time (5) CKD (chronic kidney disease), stage IV: Concern for diuretic use and renal function will be followed closely with appropriate dosing of medications were indicated including antibiotics Subjective Patient is doing well. Dr. Mello is decided to instill some fibrogenic agents into his Pleurx catheter to try to break up some septated loculated areas within his effusion. Clinical symptoms are otherwise unremarkable Review of Systems Review of Systems: ROS: well nourished well developed. No double vision blurry vision No problems with speech or swallowing No palpitations, chest pain or pressure No Wheezing baseline dyspnea on exertion No abdominal pain nausea vomiting diarrhea changes in appetite or weight No burning urine urine frequency or changes in color No focal joint pain or muscle pain No skin rashes or oral lesions No unusual bruising or bleeding No focused back pain or numbness or loss of strength No changes in memory or confusion Physical Exam Physical Exam: The patient appeared in no significant distress Vital signs as documented. Head exam is unremarkable. normocephalic, atraumatic Neck is without jugular venous distension, thyromegaly, or lymphademopathy Lungs are decreased breath sounds at the left base with mild rales Cardiac exam reveals Rhythm is regular. Light systolic ejection murmur is heard first and second heart sounds normal. Abdominal exam reveals normal bowel sounds, no masses, no organomegaly Extremities are mildly edematous and both pedal pulses are present Neurologic exam is A&Ox3, no focal deficits, strength is equal bilateral Psychologically seems neither anxious or depressed Skin is warm Dry without bruises or lesions Results & Data Vital Signs (Past 12 Hours) Vital Signs Temp Pulse Pulse Resp BP Pulse Ox 12/25/18 11:28 36.8 C 80 18 120/68 91 12/25/18 08:00 37.3 C 81 14 120/68 90 12/25/18 07:00 80 12/25/18 04:02 37.4 C 80 20 112/61 93
[2018-12-25] MEDS: levoFLOXacin 500 MG TAB PO SCH (16:51)
[2018-12-25] MEDS: ACETAMINOPHEN 325 MG TAB PO PRN (19:12)
[2018-12-26] MEDS: ALTEPLASE, RECOMBINANT 10 MG in SYRINGE 50 ML IPL SCH ×2 (06:55→19:42)
--- NOTE | 2018-12-26 07:41 | XRay Report ---
XR chest 1V not portable HISTORY: effusion COMPARISON: Chest 12/25/2018. FINDINGS: Left basilar pleural drain remains unchanged in position. Small left pleural effusion and l eft basilar densities persist. No definite pneumothorax. Left-sided pacemaker is noted. Cardiac valve prosthesis. The heart remains mildly enlarged. The right lung is clear. IMPRESSION: No change in the left basilar pleural drain and small left pleural effusion. Electronically signed by: Paco Fuentes M.D. 12/26/2018 7:40 AM
[2018-12-26] MEDS: DORNASE ALFA 5 ML in SYRINGE 25 ML IPL SCH ×2 (08:00→20:54)
[2018-12-26] MEDS: CYANOCOBALAMIN (VITAMIN B-12) 100 MCG TABLET PO SCH (08:00)
[2018-12-26] MEDS: FERROUS SULFATE 325 MG TAB PO SCH ×3 (08:00→20:54)
[2018-12-26] MEDS: MULTIVITAMIN TAB PO SCH (08:00)
[2018-12-26] MEDS: CARVEDILOL 12.5 MG TAB PO SCH ×2 (08:00→20:54)
[2018-12-26] MEDS: CHOLECALCIFEROL (VITAMIN D) 400 UNITS TABLET PO SCH (08:00)
[2018-12-26] MEDS: CARVEDILOL 25 MG TAB PO SCH ×2 (08:00→20:54)
[2018-12-26] MEDS: HEPARIN SOD 5,000 UNIT/0.5 ML VIAL SQ SCH ×2 (08:01→20:55)
--- NOTE | 2018-12-26 08:24 | Surgery Progress Note ---
Date of Service December 26, 2018 Assessment & Plan (1) Pleural effusion, left: -concern noted in office on 12/23/18 for developing pneumonia on side of pleurex -pleural fluid was cultured and remains (-) for growth and no organism noted on gram stain -continue antibiotic until final cultures are back--currently receiving zosyn -CT scan on 12/24/18 showed loculated effusion so MIST-2 protocol implemented (will finish on 12/27/18): -repeat CT scan likely after completion of MIST protocol -ambulation encouraged (pt. has been compliant) -sub-q heparin in place for DVT prevention -I had a lengthy discussion with the pt. and his grand daughter at bedside this morning Subjective Patient continues to do well. He notes some sharp pain with catheter drainage in the location of his pleurex. He has been ambulating. He is tolerating diet and voiding without difficulty. Physical Exam Constitutional: well developed and well nourished; no acute distress Respiratory: no respiratory distress and no labored breathing Slight decrease of BS at left base, but aeration seems improved from previous exams Results & Data Vital Signs (Past 12 Hours) Vital Signs Temp Pulse Resp BP Pulse Ox 12/26/18 07:36 36.5 C 80 18 118/67 90 12/26/18 00:00 36.9 C 80 20 125/64 90
[2018-12-26 09:19] LABS: BUN Creatinine Ratio 24.5 (10-20); Calcium 8.5 mg/dl (8.5-10.1); Creatinine Clr Calc Pharmacy 15.8 ml/min; Est GFR (African American) 22.2; Est GFR (Non-African American) 19.1; Magnesium 2.4 mg/dl (1.8-2.4); Potassium 4.8 mmol/L (3.5-5.1)
[2018-12-26 09:34] LABS: Hematocrit (blood only) 31.7 % (42-52); Hemoglobin 10.3 g/dL (14.0-18.0); Mean Corpuscular Hgb Conc 32.5 g/dL (32-36); Mean Corpuscular Volume 95.8 fL (80-100); Mean Platelet Volume 9.8 fL (7.4-10.4); Nucleated RBC # (auto) 0.09 K/uL (0-0); Nucleated RBC % (auto) 0.8 %; Platelet Count 294 K/uL (130-400); RDW Coefficient of Variation 13.6 % (11.5-14.5); RDW Standard Deviation 47.6 fL (36.4-46.3); Red Blood Count 3.31 M/uL (4.7-6.1); White Blood Count 11.27 K/uL (4.8-10.8)
[2018-12-26 09:35] LABS: Basophils # (auto) 0.01 K/uL (0-0.2); Basophils % (auto) 0.1 %; Eosinophils % (auto) 0.9 %; Immature Granulocytes # (auto) 0.18 K/uL (0.00-0.02); Immature Granulocytes % (auto) 1.6 %; Lymphocytes # (auto) 1.29 K/uL (1.2-3.4); Lymphocytes % (auto) 11.4 %; Monocytes # (auto) 1.21 K/uL (0.11-0.59); Monocytes % (auto) 10.7 %; Neutrophils # (auto) 8.48 K/uL (1.4-6.5); Neutrophils % (auto) 75.3 %; Poikilocytosis Present
--- NOTE | 2018-12-26 10:59 | Nephrology Progress Note ---
Date of Service December 26, 2018 Assessment & Plan (1) CKD (chronic kidney disease), stage IV: -- Baseline creatinine 2.5-3.0 mg/dL. Urinary protein excretion has been approximately 0.7-1.6 g/day. 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 Kidney function is stable. Volume status and electrolyte balance remains acceptable at this time. -- No further Nephrology evaluation indicated at this time. Will sign off. 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 Following surgery developed a large recurrent L pleural effusion. He now has a Pleur-x catheter in place. -- Echocardiogram 12/24/18: LVEF 40 - 45%, biartrial enlargement, mod MR/TR, PASP 46 mmHG -- Continue Bumex to 1 mg po QOD (outpatient dose) (3) Hypertension: -- Patient's hypertension is also controlled with medication use for heart failure these include this includes hydralazine and carvedilol and Bumex Subjective Mr. Guevara was seen & examined in his hospital room this morning. He denied fever, angina or uremic symptoms. Review of Systems Constitutional: no fever Respiratory: no dyspnea Cardiovascular: no chest pain Physical Exam Constitutional: + frail appearing Eyes: PERRL, conjunctivae normal, anicteric sclerae Neck: trachea midline, no thyromegaly Respiratory: normal respiratory effort, lungs clear to auscultation Cardiovascular: Rate/Rhythm: regular rate and regular rhythm Gastrointestinal (Abdomen): Inspection/Auscultation: abdomen not distended Percussion/Palpation: abdomen soft; abdomen nontender and no guarding Results & Data Vital Signs (Past 12 Hours) Vital Signs Temp Pulse Resp BP Pulse Ox 12/26/18 07:36 36.5 C 80 18 118/67 90 12/26/18 00:00 36.9 C 80 20 125/64 90 Laboratory Results Laboratory Tests 12/23/18 12/25/18 17:25 07:09 WBC 11.72 H Hgb 10.0 L Hct 31.3 L Plt Count 248 Sodium 134 L Potassium 4.7 Chloride 101 Carbon Dioxide 24 BUN 66 H Creatinine 2.53 H Glucose 120 H
--- NOTE | 2018-12-26 13:21 | Hospitalist Progress Note ---
Date of Service December 26, 2018 Assessment & Plan (1) CHF (congestive heart failure): History of chronic systolic and diastolic failure with hx of severe calcific aortic stenosis ejection fraction of 35-40% range follows with Dr. Shelton as out patient has been on oral Bumex dosing of 12/25/2018, creatinine getting worse compared to yesterday from 2.5-2.8, however is in his baseline range cont carvedilol 37.5 twice daily , hydralazine 25 twice a day. (2) Hypertension: Patient's hypertension is also controlled with medication use for heart failure these include this includes hydralazine and carvedilol and Bumex (3) Pneumonia: possible infiltrate associate with his left base clinically improved will transition to oral levofloxacin at this time cont (4) DVT prophylaxis: Heparin for DVT prophylaxis at this time (5) CKD (chronic kidney disease), stage IV: Concern for diuretic use and renal function will be followed closely with appropriate dosing of medications were indicated including antibiotics Increase activity discharge summary as per primary team, encourage patient deep breathing, incentive spirometry as much as possible Subjective Sitting up in chair, no complaint, however when asked feeling and left chest pain when deep breathing, otherwise doing well, out of bed and walk, Review of Systems Review of Systems: All systems reviewed & are unremarkable except as noted in HPI & below Physical Exam Physical Exam: General Appearance: looks tired, but NAD, speak full sentence, WD/WN, Eyes: normal inspection, PERRL, EOMI, sclerae normal ENT: normal ENT inspection, hearing grossly normal, Neck: supple, no adenopathy, thyroid normal, no JVD, Respiratory/Chest: chest non-tender, decreased breath sounds, no accessory muscle use, breath sounds, rales, wheezing Cardiovascular: regular rate, rhythm, no JVD, no murmur Abdomen: normal bowel sounds, non tender, soft, no organomegaly, Extremities: normal range of motion, non-tender, normal inspection, no pedal edema, no calf tenderness, normal capillary refill, pelvis stable, joint has no limited range of motion, capillary refill is normal, no cyanosis clubbing 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, no motor/sensory deficits, alert, normal mood/affect, oriented x 3 Skin: normal color, warm/dry, no rash Lymphatic: no adenopathy Results & Data Vital Signs (Past 12 Hours) Vital Signs Temp Pulse Resp BP Pulse Ox 12/26/18 07:36 36.5 C 80 18 118/67 90 Laboratory Results - last 24 hr 12/26/18 12/26/18 08:40 08:40 WBC 11.27 H RBC 3.31 L Hgb 10.3 L Hct 31.7 L MCV 95.8 MCH 31.1 MCHC 32.5 RDW Std Deviation 47.6 H RDW Coeff of Maya 13.6 Plt Count 294 MPV 9.8 Immature Gran % (Auto) 1.6 Neut % (Auto) 75.3 Lymph % (Auto) 11.4 [place] % (Auto) 10.7 Eos % (Auto) 0.9 Baso % (Auto) 0.1 Immature Gran # (Auto) 0.18 H Neut # (Auto) 8.48 H Lymph # (Auto) 1.29 [place] # (Auto) 1.21 H Eos # (Auto) 0.10 Baso # (Auto) 0.01 Absolute Nucleated RBC 0.09 H Nucleated RBC % (auto) 0.8 Poikilocytosis Present Sodium 136 Potassium 4.8 Chloride 103 Carbon Dioxide 24 Anion Gap 9.0 BUN 69 H Creatinine 2.80 H Est Cr Clr Drug Dosing 15.8 Est GFR ( Amer) 22.2 Est GFR (Non-Af Amer) 19.1 BUN/Creatinine Ratio 24.5 H Glucose 150 H Calcium 8.5 Magnesium 2.4 Microbiology 12/23/18 Unknown Pleural Fluid Gram Stain - Final 12/23/18 Unknown Pleural Fluid Aerobic and Anaerobic Culture - Preliminary No growth to date.
[2018-12-27] MEDS: ALTEPLASE, RECOMBINANT 10 MG in SYRINGE 50 ML IPL SCH (06:28)
--- NOTE | 2018-12-27 07:13 | XRay Report ---
XR chest 1V not portable CLINICAL HISTORY: effusion dyspnea COMPARISON STUDY: No previous studies for comparison. FINDINGS: Mild cardiomegaly. Prominent bipolar cardiac pacer. Parenchymal infiltrative process left b ase slightly improved in aeration. Right lung is clear. Small left effusion has diminished in promine nce. Left basilar drainage tube is unchanged. IMPRESSION: 1. Improved aeration left base with unchanging location of the left basilar drainage tube. 2. Mild stable cardiomegaly. The above report was generated using voice recognition software. It may contain grammatical, syntax or spelling errors. Electronically signed by: Daren Persaud M.D. 12/27/2018 7:12 AM
[2018-12-27] MEDS: DORNASE ALFA 5 ML in SYRINGE 25 ML IPL SCH (07:44)
[2018-12-27 08:03] LABS: BUN Creatinine Ratio 26.9 (10-20); Calcium 8.2 mg/dl (8.5-10.1); Creatinine Clr Calc Pharmacy 16.9 ml/min; Est GFR (Non-African American) 20.7; Magnesium 2.4 mg/dl (1.8-2.4); Potassium 4.7 mmol/L (3.5-5.1)
[2018-12-27] MEDS: CARVEDILOL 12.5 MG TAB PO SCH ×2 (08:48→20:26)
[2018-12-27] MEDS: CYANOCOBALAMIN (VITAMIN B-12) 100 MCG TABLET PO SCH (08:48)
[2018-12-27] MEDS: BUMETANIDE 1 MG TAB PO SCH (08:48)
[2018-12-27] MEDS: MULTIVITAMIN TAB PO SCH (08:49)
[2018-12-27] MEDS: CHOLECALCIFEROL (VITAMIN D) 400 UNITS TABLET PO SCH (08:49)
[2018-12-27] MEDS: CARVEDILOL 25 MG TAB PO SCH ×2 (08:49→20:27)
[2018-12-27] MEDS: HEPARIN SOD 5,000 UNIT/0.5 ML VIAL SQ SCH ×2 (08:49→20:28)
[2018-12-27] MEDS: FERROUS SULFATE 325 MG TAB PO SCH ×3 (08:49→20:27)
[2018-12-27] MEDS: ASPIRIN 81 MG ECTAB PO SCH (08:49)
[2018-12-27] MEDS: levoFLOXacin 500 MG TAB PO SCH (14:24)
--- NOTE | 2018-12-27 15:44 | Hospitalist Progress Note ---
Date of Service December 27, 2018 Assessment & Plan (1) CHF (congestive heart failure): History of chronic systolic and diastolic failure with hx of severe calcific aortic stenosis ejection fraction of 35-40% range follows with Dr. Shelton as out patient has been on oral Bumex dosing of 12/25/2018, creatinine getting better 2.6 from 2.8, however is in his baseline range cont carvedilol 37.5 twice daily , hydralazine 25 twice a day. (2) Hypertension: Blood pressure 152/72, , is also controlled , continue current medication (3) Pneumonia: possible infiltrate associate with his left base clinically improved will transition to oral levofloxacin at this time 1 out of 3 tubs positive pleural fluid culture, gram-positive, will continue follow-up sensitivity, does not believe it is a real infection possible, likely contaminated, this patient general condition looks good no fever no leukocytosis, (4) DVT prophylaxis: Heparin for DVT prophylaxis at this time (5) CKD (chronic kidney disease), stage IV: Concern for diuretic use and renal function Kidney function stable with current dose of Bumex, Increase activity , discharge summary as per primary team, encourage patient deep breathing, incentive spirometry as much as possible Subjective Doing okay, up and walk, mild left side chest pain with deep breathing, there is Pleurx catheter in place, Review of Systems Review of Systems: All systems reviewed & are unremarkable except as noted in HPI & below Physical Exam Physical Exam: General Appearance: NAD, speak full sentence, WD/WN, Eyes: normal inspection, PERRL, EOMI, sclerae normal ENT: normal ENT inspection, hearing grossly normal, Neck: supple, no adenopathy, thyroid normal, no JVD, Respiratory/Chest: left chest wall Pleudex cath in place, local chest non- tender, decreased breath sounds, no rales/wheezing Cardiovascular: regular rate, rhythm, no JVD, no murmur Abdomen: normal bowel sounds, non tender, soft, no organomegaly, Extremities: normal range of motion, non-tender, normal inspection, no pedal edema, no calf tenderness, normal capillary refill, pelvis stable, joint has no limited range of motion, capillary refill is normal, no cyanosis clubbing 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, no motor/sensory deficits, alert, normal mood/affect, oriented x 3 Skin: normal color, warm/dry, no rash Lymphatic: no adenopathy Results & Data Vital Signs (Past 12 Hours) Vital Signs Temp Pulse Resp BP Pulse Ox 12/27/18 12:00 36.3 C L 80 18 152/72 H 95 12/27/18 07:56 36.8 C 80 18 130/80 92 Laboratory Results - last 24 hr 12/27/18 07:34 Sodium 136 Potassium 4.7 Chloride 103 Carbon Dioxide 24 Anion Gap 9.0 BUN 71 H Creatinine 2.62 H Est Cr Clr Drug Dosing 16.9 Est GFR ( Amer) 24.0 Est GFR (Non-Af Amer) 20.7 BUN/Creatinine Ratio 26.9 H Glucose 115 H Calcium 8.2 L Magnesium 2.4 Microbiology 12/23/18 Unknown Pleural Fluid Gram Stain - Final 12/23/18 Unknown Pleural Fluid Aerobic and Anaerobic Culture - Preliminary Gram positive cocci
[2018-12-27] MEDS: ACETAMINOPHEN 325 MG TAB PO PRN (16:23)
--- NOTE | 2018-12-27 17:47 | Progress Note ---
DATE: 12/27/2018 Mr. Guevara was seen today. He will be completing MIST2 protocol today. I have been quite pleased with Mr. Guevara. Unfortunately, but not surprisingly, he did have gram positive cocci in his pleural fluid. I think his x-ray looks better. I think he looks better. We are going to continue the MIST protocol and check a CT scan tomorrow. He will need to be on antibiotics of course. I am quite pleased with his progress. ASSESSMENT AND PLAN: Left empyema with chronic indwelling pleural catheter. Continue MIST protocol and check CT scan and start antibiotics.
[2018-12-28] MEDS: MULTIVITAMIN TAB PO SCH (08:32)
[2018-12-28] MEDS: CYANOCOBALAMIN (VITAMIN B-12) 100 MCG TABLET PO SCH (08:33)
[2018-12-28] MEDS: CARVEDILOL 12.5 MG TAB PO SCH ×2 (08:33→20:42)
[2018-12-28] MEDS: CHOLECALCIFEROL (VITAMIN D) 400 UNITS TABLET PO SCH (08:33)
[2018-12-28] MEDS: CARVEDILOL 25 MG TAB PO SCH ×2 (08:34→20:43)
[2018-12-28] MEDS: FERROUS SULFATE 325 MG TAB PO SCH ×3 (08:34→20:42)
[2018-12-28] MEDS: HEPARIN SOD 5,000 UNIT/0.5 ML VIAL SQ SCH ×3 (08:35→20:46)
--- NOTE | 2018-12-28 09:05 | CT Scan Report ---
CT chest wo con CT DOSE: 409.81 mGycm HISTORY: Follow-up left pleural effusion TECHNIQUE: Multiaxial CT images of the chest were performed without contrast. A dose lowering techni que was utilized adhering to the principles of ALARA. COMPARISON: Chest CT 12/24/2018. FINDINGS: Mild diffuse interstitial thickening which is likely chronic. This remains unchanged. There is a 2 mm nodule within the left lung apex on image 75. Stable 2 mm nodule within the right lung ape x on image 49. Mild emphysema. Focal consolidation within the base of the left lower lobe with crowdi ng of the bronchi. Therefore, this favors atelectasis. A pneumonia could also have a similar appearan ce. No pneumothorax. Small partially loculated left pleural effusion has decreased in size. A left ba silar pleural drain is in place. Left-sided pacemaker is again noted. The heart remains mildly enlarg ed. No pericardial effusion. The visualized liver and spleen are unremarkable. Normal adrenal glands. There are hypodense and hyperdense right renal lesions which remain unchanged. Calcified plaque thro ughout the normal caliber thoracic aorta. An aortic valve prosthesis is again noted. A few prominent mediastinal lymph nodes remain unchanged. Normal esophagus. A single mildly enlarged left infrahilar lymph node on image 202 is again noted. This measures 12 mm. This also remains unchanged. No suspicio us lytic or blastic osseous lesions. IMPRESSION: 1. Decrease in size in the small partially located left pleural effusion. The left basilar drain is i n good position. 2. No pneumothorax. 3. Mild emphysema and mild chronic interstitial thickening. 4. Focal consolidation at the base of the left lower lobe. This favors atelectasis. A pneumonia could also have a similar appearance. 5. Cardiomegaly. 6. Stable prominent mediastinal lymph nodes. Electronically signed by: Paco Fuentes M.D. 12/28/2018 9:04 AM
--- NOTE | 2018-12-28 10:23 | Infectious Disease Consult ---
Date of Consultation December 28, 2018 Assessment & Plan (1) Empyema of pleural space: Patient with positive pleural fluid culture for gram-positive cocci, but fluid and clinical symptomatology not really consistent with empyema. Will change levofloxacin to Augmentin pending final identification and sensitivity and follow-up fluid cultures. Will follow. 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 He was admitted on December 23 with increasing effusion and catheter dysfunction along with concern for infiltrate. He was started on IV antibiotics, undergone MIST procedure. The culture from the pleural fluid now reported positive for gram-positive cocci. Repeat cultures are pending. Gram stain from fluid also showed gram-positive cocci. Fluid not really consistent with exudate. Patient denies any significant fever, chills, increasing cough, purulent sputum, or other new systemic complaints other than chronic shortness of breath. Allergies Allergy/AdvReac Type Severity Reaction Status Date / Time No Known Allergies Allergy Verified 09/01/18 14:06 Home Medications Home Medications Medication Instructions Recorded Confirmed Type aspirin 81 mg PO [id number] 09/01/18 09/01/18 History carvedilol 12.5 mg PO BID 09/01/18 09/01/18 History carvedilol 25 mg PO BID 09/01/18 09/01/18 History cholecalciferol (vitamin D3) 400 unit PO DAILY 09/01/18 09/01/18 History [Vitamin D3] cyanocobalamin (vitamin B-12) 100 mcg PO DAILY 09/01/18 09/01/18 History [Vitamin B-12] ferrous sulfate 325 mg PO TID 09/01/18 09/01/18 History hydralazine 25 mg PO BID 09/01/18 09/01/18 History multivitamin 1 tab PO DAILY 09/01/18 09/01/18 History levofloxacin 750 mg PO DAILY 5 Days #5 tab 12/25/18 Rx Patient History Medical History Hypertension (Chronic) Hyperlipidemia (Chronic) Mild pulmonary hypertension (Chronic) COPD (chronic obstructive pulmonary disease) (Chronic) CHF (congestive heart failure) (Acute) PNA (pneumonia) (Acute) Acute on chronic renal failure (Acute) Atrial fibrillation Surgical History No significant past surgical history Social History Preferred Language: Sinhala Communication Ability: Effective Beliefs That Will Affect Care: None marital status: / Current Living Situation: Alone Current Living Situation Comment: Pt's daughter, Camille, checks in frequently current occupational status: retired Other Information That Helps Us Care for You: No Feels Safe at Home: Yes Safety Concerns: Feels Safe At This Time Smoking Status: Former smoker Hx Alcohol Use: No Hx Substance Use: No Review of Systems Review of Systems: All systems reviewed & are unremarkable except as noted in HPI & below Physical Exam Constitutional: WD/WN, vitals as above comfortable; no acute distress Eyes: PERRL, conjunctivae normal, anicteric sclerae ENMT: external ear and nose normal, oropharynx normal Neck: trachea midline, no thyromegaly neck nontender Respiratory: normal respiratory effort, lungs clear to auscultation normal percussion; does not use accessory muscles Cardiovascular: Rate/Rhythm: regular rate and regular rhythm Heart Sounds: normal S1 and normal S2; no gallop, no murmur and no cardiac rub Vessels: normal peripheral pulses; no JVD Gastrointestinal (Abdomen): normal bowel sounds, soft, nontender, no hepatosplenomegaly Musculoskeletal: no cyanosis or clubbing, extremities motor strength 5/5 Spine: thoracic spine normal to inspection and lumbar spine normal to inspection; no cervical spinal tenderness Skin: no rashes, warm and dry normal turgor; no lesions Neurologic: patellar DTR's 2+ bilat, sensation intact no focal motor deficits Psychiatric: A+Ox3, euthymic affect Orientation: cooperative Lymphatic: no cervical or axillary lymphadenopathy no inguinal lymphadenopathy Results & Data Vital Signs (Past 12 Hours) Vital Signs Temp Pulse Resp BP Pulse Ox 12/28/18 07:07 36.3 C L 80 20 138/73 93 12/27/18 23:41 36.6 C 80 18 145/63 H 96 Laboratory Results Laboratory Results - last 48 hr 12/27/18 07:34 Sodium 136 Potassium 4.7 Chloride 103 Carbon Dioxide 24 Anion Gap 9.0 BUN 71 H Creatinine 2.62 H Est Cr Clr Drug Dosing 16.9 Est GFR ( Amer) 24.0 Est GFR (Non-Af Amer) 20.7 BUN/Creatinine Ratio 26.9 H Glucose 115 H Calcium 8.2 L Magnesium 2.4 Diagnostic Findings Microbiology 12/23/18 Unknown Pleural Fluid Gram Stain - Final 12/23/18 Unknown Pleural Fluid Aerobic and Anaerobic Culture - Preliminary Staphylococcus species 12/23/18 17:41 Blood Blood Culture - Preliminary No growth to date. 12/23/18 17:25 Blood Blood Culture - Preliminary No growth to date. cc: ~ CT chest wo con CT DOSE: 409.81 mGycm HISTORY: Follow-up left pleural effusion TECHNIQUE: Multiaxial CT images of the chest were performed without contrast. A dose lowering technique was utilized adhering to the principles of ALARA. COMPARISON: Chest CT 12/24/2018. FINDINGS: Mild diffuse interstitial thickening which is likely chronic. This remains unchanged. There is a 2 mm nodule within the left lung apex on image 75. Stable 2 mm nodule within the right lung apex on image 49. Mild emphysema. Focal consolidation within the base of the left lower lobe with crowding of the bronchi. Therefore, this favors atelectasis. A pneumonia could also have a similar appearance. No pneumothorax. Small partially loculated left pleural effusion has decreased in size. A left basilar pleural drain is in place. Left- sided pacemaker is again noted. The heart remains mildly enlarged. No pericardial effusion. The visualized liver and spleen are unremarkable. Normal adrenal glands. There are hypodense and hyperdense right renal lesions which remain unchanged. Calcified plaque throughout the normal caliber thoracic aorta. An aortic valve prosthesis is again noted. A few prominent mediastinal lymph nodes remain unchanged. Normal esophagus. A single mildly enlarged left infrahilar lymph node on image 202 is again noted. This measures 12 mm. This also remains unchanged. No suspicious lytic or blastic osseous lesions. IMPRESSION: 1. Decrease in size in the small partially located left pleural effusion. The left basilar drain is in good position. 2. No pneumothorax. 3. Mild emphysema and mild chronic interstitial thickening. 4. Focal consolidation at the base of the left lower lobe. This favors a telectasis. A pneumonia could also have a similar appearance. 5. Cardiomegaly. 6. Stable prominent mediastinal lymph nodes. Electronically signed by: Paco Fuentes M.D. 12/28/2018 9:04 AM Dictated: 12/28/18 [id number] Transcribed: 12/28/18 [id number]
--- NOTE | 2018-12-28 17:55 | Progress Note ---
DATE: 12/28/2018 The patient appears to me to be back to baseline. On room air with 97% sats. He sounds better. He is not complaining of pain like he did. Interestingly enough, he did grow out a Staph species from his pleural fluid from 1 bottle. I would like to see the sensitivities of this before we make a decision about what to do. We will continue him on Augmentin, which was recommended by Infectious Disease. Otherwise, I think he looks good. He put out about 200 mL today. We will continue to monitor his progress.
--- NOTE | 2018-12-28 18:20 | Hospitalist Progress Note ---
Date of Service December 28, 2018 Assessment & Plan (1) CHF (congestive heart failure): History of chronic systolic and diastolic failure with hx of severe calcific aortic stenosis ejection fraction of 35-40% range follows with Dr. Shelton as out patient has been on oral Bumex dosing of 12/25/2018, creatinine getting better 2.6 from 2.8, in his baseline range cont carvedilol 37.5 twice daily , hydralazine 25 twice a day. (2) Hypertension: Blood pressure 152/72, , is also controlled , continue current medication (3) Pneumonia: possible infiltrate associate with his left base positive pleural fluid culture for gram-positive cocci, but fluid and clinical symptomatology not consistent with empyema. ID inputed changed levofloxacin to Augmentin pending final identification and sensitivity and follow-up fluid cultures. (4) DVT prophylaxis: Heparin for DVT prophylaxis at this time (5) CKD (chronic kidney disease), stage IV: Concern for diuretic use and renal function Kidney function stable with current dose of Bumex, Increase activity , discharge summary as per primary team, encourage patient deep breathing, incentive spirometry as much as possible Subjective Doing the same as yesterday, no fever and chill, no cough sputum, denied local pain, Doing okay, up and walk, mild left side chest pain with deep breathing, there is Pleurx catheter in place, Review of Systems Review of Systems: All systems reviewed & are unremarkable except as noted in HPI & below Physical Exam Physical Exam: General Appearance: NAD, speak full sentence, WD/WN, Eyes: normal inspection, PERRL, EOMI, sclerae normal ENT: normal ENT inspection, hearing grossly normal, Neck: supple, no adenopathy, thyroid normal, no JVD, Respiratory/Chest: left chest wall Pleudex cath in place, local chest non- tender, decreased breath sounds, no rales/wheezing Cardiovascular: regular rate, rhythm, no JVD, no murmur Abdomen: normal bowel sounds, non tender, soft, no organomegaly, Extremities: normal range of motion, non-tender, normal inspection, no pedal edema, no calf tenderness, normal capillary refill, pelvis stable, joint has no limited range of motion, capillary refill is normal, no cyanosis clubbing 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
[2018-12-29] MEDS: CARVEDILOL 25 MG TAB PO SCH ×2 (08:28→21:02)
[2018-12-29] MEDS: ASPIRIN 81 MG ECTAB PO SCH (08:28)
[2018-12-29] MEDS: CARVEDILOL 12.5 MG TAB PO SCH ×2 (08:28→21:02)
[2018-12-29] MEDS: CYANOCOBALAMIN (VITAMIN B-12) 100 MCG TABLET PO SCH (08:28)
[2018-12-29] MEDS: CHOLECALCIFEROL (VITAMIN D) 400 UNITS TABLET PO SCH (08:28)
[2018-12-29] MEDS: MULTIVITAMIN TAB PO SCH (08:29)
[2018-12-29] MEDS: FERROUS SULFATE 325 MG TAB PO SCH ×3 (08:29→21:02)
[2018-12-29] MEDS: BUMETANIDE 1 MG TAB PO SCH (08:29)
[2018-12-29] MEDS: HEPARIN SOD 5,000 UNIT/0.5 ML VIAL SQ SCH ×2 (08:29→21:00)
--- NOTE | 2018-12-29 11:23 | Infectious Disease Progress Nt ---
Date of Service December 29, 2018 Assessment & Plan (1) Empyema of pleural space: Patient with empyema with cultures positive for Staphylococcus lugdunensis which typically acts very similar to staph aureus and should be considered a significant pathogen. Isolate is fully sensitive, so treatment with Augmentin is appropriate. He will likely require in the range of 2 to 3 weeks of oral antibiotics. Will follow. Subjective Patient seen in follow-up for empyema. Appears comfortable, no increase in shortness of breath or cough. Cultures growing Staphylococcus lugdunensis. Remains afebrile. Review of Systems Review of Systems: All systems reviewed & are unremarkable except as noted in HPI & below Physical Exam Constitutional: WD/WN, vitals as above comfortable; no acute distress Eyes: PERRL, conjunctivae normal, anicteric sclerae ENMT: external ear and nose normal, oropharynx normal Neck: trachea midline, no thyromegaly neck nontender Respiratory: normal respiratory effort, lungs clear to auscultation normal percussion; does not use accessory muscles Cardiovascular: Rate/Rhythm: regular rate and regular rhythm Heart Sounds: normal S1 and normal S2; no gallop, no murmur and no cardiac rub Vessels: normal peripheral pulses; no JVD Gastrointestinal (Abdomen): normal bowel sounds, soft, nontender, no hepatosplenomegaly Musculoskeletal: no cyanosis or clubbing, extremities motor strength 5/5 Spine: thoracic spine normal to inspection and lumbar spine normal to inspection; no cervical spinal tenderness Skin: no rashes, warm and dry normal turgor; no lesions Neurologic: patellar DTR's 2+ bilat, sensation intact no focal motor deficits Psychiatric: A+Ox3, euthymic affect Orientation: cooperative Lymphatic: no cervical or axillary lymphadenopathy no inguinal lymphadenopathy Results & Data Vital Signs (Past 12 Hours) Vital Signs Temp Pulse Resp BP Pulse Ox 12/29/18 07:00 36.6 C 80 18 153/67 H 96 Diagnostic Findings Microbiology 12/23/18 Unknown Pleural Fluid Gram Stain - Final 12/23/18 Unknown Pleural Fluid Aerobic and Anaerobic Culture - Preliminary Staphylococcus lugdunensis 12/23/18 17:41 Blood Blood Culture - Final No growth 12/23/18 17:25 Blood Blood Culture - Final No growth 12/28/18 07:38 Pleural Fluid Gram Stain - Final
--- NOTE | 2018-12-29 17:33 | Hospitalist Progress Note ---
Date of Service December 29, 2018 Assessment & Plan (1) Pneumonia: per ID , Patient with empyema with cultures positive for Staphylococcus lugdunensis treatment with Augmentin is appropriate, require in the range of 2 to 3 weeks of oral antibiotics. possible infiltrate associate with his left base (2) Empyema of pleural space: (3) CHF (congestive heart failure): History of chronic systolic and diastolic failure with hx of severe calcific aortic stenosis ejection fraction of 35-40% range follows with Dr. Shelton as out patient has been on oral Bumex1 mg bid, creatinine stable, cont cont carvedilol 37.5 twice daily , hydralazine 25 twice a day. (4) Hypertension: Blood pressure 152/72, , is also controlled , continue current medication (5) DVT prophylaxis: Heparin for DVT prophylaxis at this time (6) CKD (chronic kidney disease), stage IV: Concern for diuretic use and renal function Kidney function stable with current dose of Bumex, Increase activity , discharge summary as per primary team, encourage patient deep breathing, incentive spirometry as much as possible Subjective Up and walk, doing well, daily newspaper, eating and voiding, denies fever chills, denies pain, Review of Systems Review of Systems: All systems reviewed & are unremarkable except as noted in HPI & below Physical Exam Physical Exam: General Appearance: NAD, speak full sentence, WD/WN, Eyes: normal inspection, PERRL, EOMI, sclerae normal ENT: normal ENT inspection, hearing grossly normal, Neck: supple, no adenopathy, thyroid normal, no JVD, Respiratory/Chest: left chest wall Pleudex cath in place, local chest non- tender, decreased breath sounds, no rales/wheezing Cardiovascular: regular rate, rhythm, no JVD, no murmur Abdomen: normal bowel sounds, non tender, soft, no organomegaly, Extremities: normal range of motion, non-tender, normal inspection, no pedal edema, no calf tenderness, normal capillary refill, pelvis stable, joint has no limited range of motion, capillary refill is normal, no cyanosis clubbing Neurologic/Psychiatric: 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 12/23/18 Unknown Pleural Fluid Gram Stain - Final 12/23/18 Unknown Pleural Fluid Aerobic and Anaerobic Culture - Final Staphylococcus lugdunensis 12/23/18 17:41 Blood Blood Culture - Final No growth 12/23/18 17:25 Blood Blood Culture - Final No growth
--- NOTE | 2018-12-29 18:20 | Progress Note ---
DATE: 12/29/2018 The patient is seen today on 12/29/2018. He looks great. In addition, as stated yesterday, I am happy that his pleural effusion has decreased in size. He looks and feels better and our last culture result shows no growth to date from yesterday. He did grow out a staphylococcal lugdunensis from 12/23/2018, which is not surprising. At any rate, his drainage has continued to decrease. He put out very little fluid over the last 24 hours and is serous. We are going to do an x-ray in the morning and if we are happy and the drainage is down, I may just remove his PleurX catheter.
[2018-12-29] MEDS: AMOXICILLIN/CLAVULANATE 500 MG TAB PO SCH (18:21)
--- NOTE | 2018-12-30 07:30 | XRay Report ---
XR chest 1V portable CLINICAL HISTORY: 88 years-old Male presenting with effusion. TECHNIQUE: Portable upright AP view of the chest was obtained. COMPARISON: CT from 12/28/2018 and chest x-ray from 12/27/2018. FINDINGS: Left subclavian pacer with leads to the right atrium, coronary sinus, and right ventricular apex. Pos tsurgical changes of aortic valve replacement. A left pleural drain is positioned at the left lung ba se unchanged. Atherosclerosis of the aortic arch. Cardiac silhouette mildly enlarged. Pulmonary vascu lar prominence increased from prior. Decreased aeration of the left lung base with increasing left ba silar opacity . Overall the volume of left pleural effusion is similar to prior. Improved aeration of the right lung base. Degenerative changes of the thoracic spine. Upper abdomen normal. IMPRESSION: 1. Improved aeration of the right lung base though decreased aeration of the left lung base. Overall volume of the left pleural effusion is unchanged with the left pleural drain unchanged in position. 2. Increasing volume overload in the setting of cardiomegaly. Electronically signed by: Jose Durán M.D. 12/30/2018 7:29 AM
[2018-12-30] MEDS: HEPARIN SOD 5,000 UNIT/0.5 ML VIAL SQ SCH (08:28)
[2018-12-30] MEDS: CARVEDILOL 12.5 MG TAB PO SCH (08:30)
[2018-12-30] MEDS: AMOXICILLIN/CLAVULANATE 500 MG TAB PO SCH (08:30)
[2018-12-30] MEDS: CARVEDILOL 25 MG TAB PO SCH (08:31)
[2018-12-30] MEDS: FERROUS SULFATE 325 MG TAB PO SCH (08:31)
[2018-12-30] MEDS: CYANOCOBALAMIN (VITAMIN B-12) 100 MCG TABLET PO SCH (08:32)
[2018-12-30] MEDS: MULTIVITAMIN TAB PO SCH (08:32)
[2018-12-30] MEDS: CHOLECALCIFEROL (VITAMIN D) 400 UNITS TABLET PO SCH (08:32)
--- NOTE | 2018-12-30 20:13 | Operative Report ---
DATE OF OPERATION: 12/30/2018 Mr. Guevara was seen today on 12/30/2018. I have been quite pleased with him. He is on room air and really he is eager to go home. Our pleural fluid from 2 days ago has no growth. He did grow out a staphylococcal lugdunensis from his pleural fluid on 12/23/2018. I had a long talk with the patient and his daughter. We removed his PleurX catheter as he really did not drain any fluid today. His x-ray looks quite good. The fluid which did drain was serous in nature. The patient's fiber sheath of his PleurX catheter was near the skin and was easy to remove this without difficulty. An antimicrobial dressing was placed. The patient tolerated it quite well. We will see him back in the office next week and allow him to be discharged today. I attest to the content of the Intraoperative Record and any orders documented therein. Any exception s are noted below.
--- NOTE | 2018-12-30 21:58 | Discharge Summary ---
DISCHARGE DIAGNOSES: 1. Staphylococcal empyema, left pleural cavity. 2. Recalcitrant left pleural effusion, probably secondary to cardiac dysfunction. 3. Chronic renal insufficiency. 4. Hypertension. 5. Hyperlipidemia. 6. Chronic obstructive pulmonary disease. 7. Atrial fibrillation. HOSPITAL COURSE: This is a very nice 88-year-old male that I know very well having placed a PleurX catheter in the patient about 15 months ago for a recalcitrant left pleural effusion. He has done superbly with this pleural catheter. His breathing is much improved and he and his daughter help care for it quite meticulously. The patient was putting out his usual fairly significant amount of fluid and suddenly stopped. An x-ray showed accumulation of fluid, he really was not draining much. So he was admitted to the hospital on 12/23/2018 and we instituted the MIST-2 protocol. He drained quite nicely with this and his x-ray improved. The culture results from 12/23/2018 showed staphylococcal lugdunensis which was pansensitive. He felt much better and drainage decreased greatly. It was serous in nature and our second culture did not grow any organisms. We elected to pull the catheter, which was done today on 12/30/2018. We will see him back in the office next week with a chest x-ray. I am quite pleased with how well he tolerated this.
== END 2018-12-30 09:37 | disposition home or self-care (01) | DRG 177 ==
LOC: 2N 16:08 → 4W 12-27 17:33

== ENCOUNTER 2019-07-19 10:35 | Inpatient (IN) ==
--- NOTE | 2019-07-19 11:53 | History & Physical Report ---
Date of Service July 19, 2019 Assessment & Plan (1) Acute on chronic combined systolic (congestive) and diastolic (congestive) heart failure: Plan: admit to telemetry Last 2D echo in our record, was in December 2018 that showed ejection fraction of 40%, moderate MR/TR, mild pulmonary hypertension Family are not aware of any echo done after that Previous echo on September/2017 was similar adding to that commented on well- seated 26 mm Maier Shahla 3 TAVR We will repeat echo Dr. Roberts java support engineer, will follow up Daily weight 1200 cc fluid restriction Obtain baseline EKG Check hemoglobin A1c/lipids to stratify patient risk factors I/Os 2Decho Chest x-ray rule out pleural effusion gentle diuresis, Bumix 0.5 mg IV twice daily, can titrate up based on output control blood pressure, afterload and preload DVT prophylaxis (2) Shortness of breath: COPD appears to be not in exacerbation, likely shortness of breath is solely secondary to CHF (3) COPD (chronic obstructive pulmonary disease): Not in exacerbation (4) Mild pulmonary hypertension: Consider doing a sleep study as an outpatient Meanwhile continue nocturnal oxygen (5) Hyperlipidemia: Continue statin, check lipids panel (6) Hypertension: Continue home meds and titrate based on pressure measurement (7) CKD (chronic kidney disease), stage IV: Monitor renal function closely during diuresis phase History of Present Illness This is an 88-year-old man with past medical history of systolic congestive heart failure, essential hypertension, dyslipidemia, COPD, chronic kidney disease stage III-IV, diverticulosis, history of left Staphylococcus lugdunensis empyema status post Pleurx catheter drainage, currently catheter has been removed. Patient was sent from Dr. Farley's office today due to worsening symptoms of his congestive heart failure. Patient stated that he gained about 15 pounds in the last 2 to 3 weeks, his lower extremity swelling got significantly worse, he also developed progressive shortness of breath. His shortness of breath is mainly exertional but also happens at rest, associated with some chest tightness. Patient uses a wedge to elevate the head of the bed when he sleeps. Denies any chest pain. Patient is not sure if he has history of atrial fibrillation or not, family denied any history of irregular heartbeats or history of anticoagulation. Discussed with patient and family CODE STATUS, he wishes to be full code, he said he does not want to be vegetable, which he means if he is vegetative state he would like his family to withdraw care and let nature take its course, son is at bedside and understood his father's wishes, as for now he is full code Primary Care Provider: Ananda Vazquez Allergies Allergy/AdvReac Type Severity Reaction Status Date / Time amlodipine AdvReac Unknown Swelling Unverified 05/31/19 15:04 Home Medications Home Medications Medication Instructions Recorded Confirmed Type aspirin 81 mg PO [id number] 09/01/18 09/01/18 History carvedilol 12.5 mg PO BID 09/01/18 09/01/18 History carvedilol 25 mg PO BID 09/01/18 09/01/18 History cholecalciferol (vitamin D3) 400 unit PO DAILY 09/01/18 09/01/18 History [Vitamin D3] ferrous sulfate 325 mg PO TID 09/01/18 09/01/18 History hydralazine 25 mg PO BID 09/01/18 09/01/18 History multivitamin 1 tab PO DAILY 09/01/18 09/01/18 History bumetanide 1 mg tablet 1.5 mg PO DAILY tab 05/31/19 05/31/19 History cyanocobalamin (vitamin B-12) 100 100 mcg PO Q OTHER DAY tab 05/31/19 05/31/19 History mcg tablet Past Med/Surg History Social History Preferred Language: Maori Communication Ability: Effective Beliefs That Will Affect Care: None marital status: / Current Living Situation: Alone Current Living Situation Comment: Pt's daughter, Camille, checks in frequently current occupational status: retired Other Information That Helps Us Care for You: No Feels Safe at Home: Yes Safety Concerns: Feels Safe At This Time Smoking Status: Former smoker Tobacco Type: cigarettes ; Hx Alcohol Use: No Hx Substance Use: No Review of Systems Review of Systems: Review of system Constitutional: No fever / no chills / no sweats /positive for generalized weakness and fatigue Eyes: no blurring of vision / no eye pain / no discharge / no redness ENT: no hearing loss / no epistaxis /no swallowing problems Respiratory: Positive for shortness of breath, exertional and at rest Cardiovascular: Positive for weight gain, lower extremity edema and orthopnea Abdomen: no pain / no nausea / no vomiting / no constipation Musculoskeletal: no joint pain / no muscle pain / no joint swelling Genitourinary: no dysuria / no incontinence / no urinary retention Neurologic: no focal weakness / no numbness/tingling / no ataxia Psychiatric: no depression symptoms / no anxiety / no insomnia Endocrine: no excessive thirst / no excessive urination Hematologic: no abnormal bleeding / no bruising / no LN swelling Skin: No rash / no pallor Physical Exam Physical Exam: Physical examination General patient is obese appears to be comfortable, not in acute distress HEENT: Atraumatic , normocephalic /no jaundice /no pallor /anicteric /no dry mucous membrane /normal external ear inspection Neck: Supple /no swelling /central trach Heart: S1/S2 normal/regular rate and rhythm/3/6 soft pansystolic murmur Lungs: Decreased air entry bilaterally, bilateral basal Rales, no wheezing Abdomen: Soft/nontender/no guarding/no rebound/no organomegaly/no pulsatile mass Musculoskeletal: +2-3 edema Neuro exam: Awake alert oriented 3/cranial nerves II through XII appear to be intact/sensation intact/moves all extremities/no abnormal movements Psychiatric evaluation: No depressed mood/normal affect Skin: No rash on exposed skin area/no erythema Extremity: Normal pulse/no pitting edema/no clubbing or cyanosis Endocrine/lymphatic: No obvious lymphadenopathy /no lymphedema Code Status & VTE Plan Code Status Full code He instructed his next of kin/son in front of me to withdraw care if he is ever on vegetative state VTE Prophylaxis Plan VTE Prophylaxis will be ordered: Yes PG Care Time/CCT Total # of Minutes Spent Total Time Spent with Patient: 35 minutes total time spent is greater than 50% in coordination of care (as documented) at patient's floor/unit and/or counseling patient/family discussion of care with nursing staff
[2019-07-19] MEDS ORDERED: MAGNESIUM HYDROXIDE SUSP 30 ML UDC PO PRN (12:23)
[2019-07-19] MEDS ORDERED: NITROGLYCERIN SL 0.4 MG/TAB TAB SL PRN (12:23)
[2019-07-19] MEDS ORDERED: ALUMINUM/MAGNESIUM SUSP 30 ML UDC PO PRN (12:23)
[2019-07-19] MEDS ORDERED: ACETAMINOPHEN 325 MG TAB PO PRN (12:23)
[2019-07-19] MEDS ORDERED: POLYETHYLENE (MIRALAX) 17 GM PACK PO PRN (12:23)
[2019-07-19] MEDS ORDERED: BUMETANIDE 0.5 MG in SYRINGE 0 ML IV SCH (12:30)
[2019-07-19 12:54] LABS: Hematocrit (blood only) 31.8 % (42-52); Hemoglobin 10.1 g/dL (14.0-18.0); Mean Corpuscular Hemoglobin 33.3 pg (25-34); Mean Platelet Volume 10.8 fL (7.4-10.4); Platelet Count 121 K/uL (130-400); RDW Coefficient of Variation 14.8 % (11.5-14.5); RDW Standard Deviation 57.1 fL (36.4-46.3); Red Blood Count 3.03 M/uL (4.7-6.1); White Blood Count 6.38 K/uL (4.8-10.8)
[2019-07-19 12:59] LABS: Mean Corpuscular Hgb Conc 31.8 g/dL (32-36)
--- NOTE | 2019-07-19 12:59 | XRay Report ---
XR chest 1V portable CLINICAL HISTORY: Congestive heart failure. COMPARISON STUDY: No previous studies for comparison. FINDINGS: Note is made of a biventricular left subclavian pacer and prosthetic aortic valve. Moderate cardiomegaly is noted. Small bilateral pleural effusions are noted. Pulmonary edema has progressed w hen compared to exam of July 05, 2019. Bibasilar opacities have increased. There is no pneumothora x. IMPRESSION: 1. Interval increase in pulmonary edema. 2. Bilateral pleural effusions with increase in bibasilar opacities which may reflect atelectasis or consolidation. Electronically signed by: Christ Beltran M.D. 07/19/2019 12:57 PM
[2019-07-19 13:13] LABS: Alanine Aminotransferase 20 U/L (12-78); Albumin Level 3.1 gm/dl (3.4-5.0); Aspartate Aminotransferase 15 U/L (15-37); BUN Creatinine Ratio 28.7 (10-20); Blood Urea Nitrogen 68 mg/dl (7-18); Carbon Dioxide 26 mmol/L (21-32); Chloride 105 mmol/L (98-107); Creatinine Clr Calc Pharmacy 19.5 ml/min; Est GFR (Non-African American) 23.3; Glucose 96 mg/dl (70-99); Magnesium 2.6 mg/dl (1.8-2.4); Potassium 4.7 mmol/L (3.5-5.1); Sodium 139 mmol/L (136-145)
[2019-07-19 13:23] LABS: Alkaline Phosphatase 54 U/L (45-117); Bilirubin,Total 0.7 mg/dl (0.2-1); Creatine Kinase MB 1.3 ng/ml (0.5-3.6); Globulin 3.2 gm/dl (2.5-4.0); NT Pro B Type Natriuretic Pept 24984 pg/ml (0-1800); Total Protein 6.3 gm/dl (6.4-8.2)
[2019-07-19 13:35] LABS: Estimated Average Glucose 117 mg/dl; Hemoglobin A1C 5.7 % (4.5-5.6)
[2019-07-19] MEDS: BUMETANIDE 1 MG in SYRINGE 0 ML IV SCH (17:07)
[2019-07-19] MEDS: FERROUS SULFATE 325 MG TAB PO SCH (17:08)
[2019-07-19] MEDS ORDERED: carvediloL 12.5 MG TAB PO SCH (21:00)
[2019-07-19] MEDS: carvediloL 25 MG TAB PO SCH (22:04)
[2019-07-19] MEDS: HEPARIN SOD 5,000 UNIT/0.5 ML VIAL SQ SCH ×2 (22:05→22:18)
[2019-07-20 06:26] LABS: BUN Creatinine Ratio 28.9 (10-20); Calcium 8.7 mg/dl (8.5-10.1); Creatinine Clr Calc Pharmacy 18.1 ml/min; Est GFR (African American) 24.6; Est GFR (Non-African American) 21.2; Potassium 4.5 mmol/L (3.5-5.1)
[2019-07-20] MEDS: BUMETANIDE 1 MG in SYRINGE 0 ML IV SCH (08:46)
[2019-07-20] MEDS: carvediloL 25 MG TAB PO SCH ×2 (08:46→20:39)
[2019-07-20] MEDS: ASPIRIN 81 MG ECTAB PO SCH (08:47)
[2019-07-20] MEDS: FERROUS SULFATE 325 MG TAB PO SCH ×2 (08:47→18:26)
[2019-07-20] MEDS: HEPARIN SOD 5,000 UNIT/0.5 ML VIAL SQ SCH ×2 (08:48→20:40)
--- NOTE | 2019-07-20 12:26 | Consultation Report ---
DATE OF CONSULTATION: 07/20/2019 REQUESTING PHYSICIAN: Jaime Kong DO. FLAT SORTER PROCESSOR: Sherif Howell DO., [facility]. REASON FOR CONSULTATION: Refractory heart failure, diastolic heart failure, failing outpatient medical therapy. Dear Jaime: Thank you for requesting cardiology consultation on Dallin with regards to his refractory diastolic heart failure. Even with titration of his outpatient diuretics and the use of p.r.n., Bumex, Dallin has continued to have worsening lower extremity edema, abdominal distention and weight gain. In fact, the only thing that has happened is his renal function has worsened. He has had increasing shortness of breath, noting that he can walk about 50 feet, although he would be short of breath and he notes here in the hospital, he is dropping his sat to 91%. He denies any chest pain, chest pressure, chest heaviness. He is not short of breath lying in bed. He denies any palpitations or fluttering or feeling his heart racing. His appetite has been poor. His weight continues to climb, even with higher doses of diuretics. He did receive IV Bumex in the office 2 mg on 07/05/2019 with little improvement in his diuresis. He denies any dark stools or black stools, bleeding or bruising. The rest of completed systems otherwise negative. PAST MEDICAL HISTORY: 1. Coronary artery disease status post cardiac catheterization 07/24/2017 with a 30% left main lesion, 60% mid LAD lesion, 60% ostial RCA lesion, 60% mid RCA and an 80% lesion in the posterolateral branch. 2. History of severe aortic stenosis, status post TAVR with a 26 mm Maier Shahla 3 valve in 08/2017. 3. Echocardiogram this admission with mild left ventricular hypertrophy, preserved left ventricular systolic function, severe left atrial enlargement. Normally functioning aortic valve prosthesis, moderate to severe pulmonary hypertension with pulmonary artery pressure of 50-60 mmHg. 4. Status post right carotid endarterectomy. 5. COPD, using O2 at night, intolerant of CPAP. 6. Hypertension. 7. Hyperlipidemia. 8. Chronic kidney disease stage V. 9. Peripheral arterial disease with history of claudication. 10. Dual chamber biventricular pacemaker in 03/2015. 11. Severe obstructive sleep apnea with marked hypoxemia. 12. Chronic atrial fibrillation, not on anticoagulation. 13. History of left-sided PleurX catheter which has since been removed. ALLERGIES: COUGH RELATED TO PETRA INHIBITORS, CALCIUM CHANNEL BLOCKERS CAUSED LOWER EXTREMITY EDEMA. MEDICATIONS: Reviewed in electronic medical record. SOCIAL HISTORY: Denies any tobacco use. He was a former smoker. Denies any alcohol. He has a very supportive family. He is . He has 3 children, 1 who is . FAMILY HISTORY: Noncontributory. PHYSICAL EXAMINATION: GENERAL: He is awake, alert and oriented x3. He does appear short of breath talking in sentences. VITAL SIGNS: Heart rate is 63, respirations 19, sat 93% on room air. His blood pressure 174/66. HEENT: 2+ carotid upstrokes, no evidence of carotid bruits. Jugular venous pressure appeared elevated. Sclerae is anicteric. His hearing is normal. LUNGS: Clear to auscultation bilaterally with faint crackles in the bases bilaterally. HEART: Regular rate and rhythm (paced). He has a 2/6 holosystolic murmur at the apex. ABDOMEN: Soft, distended. Positive bowel sounds, nontender. His abdomen is more distended than when I last saw him. EXTREMITIES: Moderate to severe pitting edema, almost to his knees bilaterally. PSYCHIATRIC: His affect appeared appropriate. DIAGNOSTIC STUDIES: Chest x-ray on admission, increased pulmonary edema, bilateral pleural effusions. LABORATORY STUDIES: Hemoglobin of 10.1, platelet count of 121. Sodium 141, potassium 4.5, BUN 74, creatinine 2.57. His ProBNP is 29,000. IMPRESSION: 1. Acute on chronic diastolic heart failure. 2. Cardiorenal syndrome. 3. Chronic kidney disease stage V. 4. 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 5. Biventricular pacemaker. 6. Chronic atrial fibrillation. As discussed with Dr. Kong, we will increase his Bumex to 2 mg t.i.d. to try to increase his diuresis. If he continues to not have an adequate diuresis, at that point in discussion with nephrology his options would either be a Bumex drip and/or to consider dialysis. Dr. Merrill has already discussed with him dialysis as an outpatient. In my discussion today with Dallin, he had some reluctance to consider dialysis. I think when push comes to shove with his family's input if he needs dialysis he would proceed. The challenge that has been previously documented by Dr. 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 I discussed with Dallin, I would try to get him out of bed and elevate his legs, we will also arrange for compression stockings. His blood pressure remains markedly elevated. This is likely based on his volume status. I will increase hydralazine to 50 mg t.i.d. We may not have a difficult time controlling his blood pressure, but we will likely have a difficult time controlling his blood pressure until we can improve his volume status.
[2019-07-20] MEDS: BUMETANIDE 2 MG in SYRINGE 0 ML IV SCH ×2 (12:52→20:38)
[2019-07-20] MEDS: HydrALAZINE TAB 50 MG TAB PO SCH ×2 (12:52→20:40)
--- NOTE | 2019-07-20 17:50 | Hospitalist Progress Note ---
Date of Service July 20, 2019 Assessment & Plan (1) Acute on chronic combined systolic (congestive) and diastolic (congestive) heart failure: echo shows LV hypertrophy but EF is normal, this is improvement compared to 12/2018 it does show however elevated pulmonary pressures, dilated left and right atrium, moderate mitral regurgitation did not respond much at all to Bumex 1mg IV q12 d/w Dr. Howell, will increase Bumex to 2mg IV TID and look for response pay close attention to renal function with diuresis fluid restriction, daily weights, strict I/O, low sodium diet long discussion with patient and his family at the bedside discussed that we will try Bumex TID and then perhaps Bumex drip his echocardiogram shows a preserved EF so the heart failure is diastolic and right sided explained that these situations can be difficult to manage with just medications sometimes dialysis is the only option patient has expressed that he would NOT want hemodialysis when his family is present they tend to push the issue we decided that we would involve nephrology so that they can follow will see how he responds to Bumex over next 48-72 hours may need to involve palliative care in discussions (2) CKD (chronic kidney disease), stage IV: Cr is 2.57 today would expect Cr to rise with aggressive Bumex dosing monitor potassium levels follows with Dr. Merrill outpatient has had discussions about hemodialysis in preparation for a situation like this he even visited an HD clinic with his daughter when asked alone, the patient stated that he would NOT want hemodialysis when his daughter and grand daughter are present they tend to push him to consider it however, he was even evaluated by Dr. 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 would not be a good candidate for fistula (3) Shortness of breath: likely due to acute heart failure lungs are clear, denies any dyspnea at rest, just on exertion (4) COPD (chronic obstructive pulmonary disease): Not in exacerbation (5) Mild pulmonary hypertension: pressures are quite high in the 50mmHg range likely contributing to some right sided heart failure (6) Hyperlipidemia: Continue statin, check lipids panel (7) Hypertension: Continue home meds and titrate based on pressure measurement Subjective patient with minimal response to Bumex this morning, only 250cc negative discussed with Dr. Howell, will be more aggressive with Bumex at 2mg IV TID reviewed outpatient records and discussed with family and patient dialysis has been discussed by his pediatric assistant Dr. Merrill the patient and his daughter even visited dialysis clinic to learn more about what would be involved patient has been resistant to the idea, family supports him trying it he was evaluated by vascular surgery as outpatient, unfortunately he has significant subclavian disease on non-dominant side which would prevent fistula placement will ask nephrology to see while here patient c/o some acute pain in left great toe, really painful, feels like the gout he gets on right side his breathing is stable, eating well, no chest pain or pressure he has the edema in his legs bilaterally Review of Systems Review of Systems: All systems reviewed & are unremarkable except as noted in HPI & below Constitutional: + fatigue, + weakness and + weight gain; no fever Respiratory: + dyspnea on exertion; no cough, no dyspnea and no wheezing Cardiovascular: + edema; no chest pain and no syncope Gastrointestinal: no abdominal pain, no nausea, no vomiting, no constipation and no diarrhea/loose stools Physical Exam Constitutional: WD/WN, vitals as above Eyes: PERRL, conjunctivae normal, anicteric sclerae ENMT: external ear and nose normal, oropharynx normal Neck: trachea midline, no thyromegaly Respiratory: normal respiratory effort, lungs clear to auscultation Cardiovascular: Rate/Rhythm: regular rate and regular rhythm Heart Sounds: normal S1 and normal S2; no murmur Vessels: + JVD Extremities: normal capillary refill and + edema (pitting to the thighs) Gastrointestinal (Abdomen): normal bowel sounds, soft, nontender, no hepatosplenomegaly Musculoskeletal: no cyanosis or clubbing, extremities motor strength 5/5 Skin: no rashes, warm and dry Neurologic: patellar DTR's 2+ bilat, sensation intact and PERRL, EOMI, accommodation nl, no face palsy, no dysarthria Psychiatric: A+Ox3, euthymic affect Lymphatic: no cervical or axillary lymphadenopathy Results & Data Vital Signs (Past 12 Hours) Vital Signs Temp Pulse Pulse Resp BP Pulse Ox Pulse Ox 07/20/19 16:00 62 07/20/19 15:13 36.4 C L 61 18 135/54 L 91 07/20/19 11:55 36.6 C 60 19 144/56 H 92 07/20/19 10:12 93 07/20/19 07:22 36.6 C 63 19 174/66 H 96 Pulse Ox 07/20/19 16:00 07/20/19 15:13 07/20/19 11:55 07/20/19 10:12 91 07/20/19 07:22 Laboratory Results Laboratory Results - last 24 hr 07/20/19 05:43 Sodium 141 Potassium 4.5 Chloride 106 Carbon Dioxide 27 Anion Gap 8.0 BUN 74 H Creatinine 2.57 H Est Cr Clr Drug Dosing 18.1 Est GFR ( Amer) 24.6 Est GFR (Non-Af Amer) 21.2 BUN/Creatinine Ratio 28.9 H Glucose 100 H Calcium 8.7 NT-Pro-B Natriuret Pep 07087 H Triglycerides 71 Cholesterol 144 LDL Cholesterol, Calc 98 VLDL Cholesterol, Calc 14 HDL Cholesterol 32 Cholesterol/HDL Ratio 5 Medications Administered Current Inpatient Medications Acetaminophen (Tylenol) 650 mg PO Q4H PRN PRN Reason: Pain or Fever Stop: 08/18/19 12:22 Last Admin: 07/20/19 15:48 Dose: 650 mg Documented by: Al Hydrox/Mg Hydrox/Simethicone (Maalox) 15 ml PO Q4H PRN PRN Reason: Dyspepsia Stop: 08/18/19 12:22 Aspirin (Ecotrin Ectab) 81 mg PO MoWeFr@0900 [facility] Stop: 08/19/19 08:59 Last Admin: 07/20/19 08:47 Dose: 81 mg Documented by: Carvedilol (Coreg) 37.5 mg PO BID [facility] Stop: 08/18/19 20:59 Last Admin: 07/20/19 08:46 Dose: 37.5 mg Documented by: Ferrous Sulfate (Feosol) 325 mg PO BIDM [facility] Stop: 08/18/19 16:59 Last Admin: 07/20/19 18:26 Dose: 325 mg Documented by: Heparin Sodium (Porcine) (Heparin Sodium (Porcine)) 5,000 units SQ Q12 [facility] Stop: 08/18/19 20:59 Last Admin: 07/20/19 08:48 Dose: Not Given Documented by: Hydralazine HCl (Apresoline) 50 mg PO TID [facility] Stop: 08/19/19 13:59 Last Admin: 07/20/19 12:52 Dose: 50 mg Documented by: Bumetanide 2 mg/ Syringe 8 mls @ 4 mls/min IV TID [facility] Stop: 08/19/19 13:59 Last Admin: 07/20/19 12:52 Dose: 4 mls/min Documented by: Magnesium Hydroxide (Milk Of Magnesia) 30 ml PO Q12H PRN PRN Reason: Constipation Stop: 08/18/19 12:22 Nitroglycerin (Nitrostat) 0.4 mg SL UD PRN PRN Reason: Chest Pain Stop: 08/18/19 12:22 Polyethylene Glycol (Miralax Powder Packet) 17 gm PO DAILY PRN PRN Reason: Constipation Stop: 08/18/19 12:22 PG Care Time/CCT Total # of Minutes Spent Total Time Spent with Patient: Total time spent is greater than 50% in coordination of care (as documented) at patient's floor/unit and/or counseling patient:
[2019-07-20] MEDS: predniSONE 20 MG TAB PO ONE ×2 (18:26→19:13)
[2019-07-20] MEDS: COLCHICINE 0.6 MG TAB PO ONE ×2 (18:26→19:13)
--- NOTE | 2019-07-20 19:53 | Nephrology Consultation ---
Date of Consultation July 20, 2019 Assessment & Plan (1) Acute on chronic combined systolic (congestive) and diastolic (congestive) heart failure: (2) CKD (chronic kidney disease), stage IV: Urine output has been suboptimal for diuresis. Bumex was increased to 2 milligrams 3 times a day. If this is not effective I would start a continuous infusion. Combination diuretic therapy should certainly be considered. Overall, the patient is aware of potential indications for renal replacement therapy. At this time there is no emergent indication for dialysis. Electrolytes are acceptable. Medications are appropriately dosed for kidney dysfunction. Close monitoring will be essential. Will repeat a metabolic profile tomorrow morning. Input and output would be strictly documented. The patient is on appropriate diet with a fluid and sodium restriction. We will have an ongoing conversation regarding overall goals of care. Palliative care consultation may ultimately be of benefit. I believe the patient has some appropriate reservations regarding dialysis. He expresses a g ood understanding of his current situation. He has a good understanding of the dialysis procedure. At this time, no additional changes were made. I will follow up with the patient tomorrow morning. This is an 88-year-old male with coronary artery disease, sick sinus syndrome with pacemaker, history of severe aortic stenosis requiring valve replacement, peripheral arterial disease with claudication and history of carotid artery disease requiring endarterectomy, COPD, pulmonary hypertension, obstructive sleep apnea intolerant of CPAP, in advanced chronic kidney disease. His baseline creatinine has been approximately 2 and a 0.5 milligrams/deciliter. He has left arm subclavian stenosis complicating AV fistula placement. He will require a multistep procedure including DEPUTY TREASURER of L subclavian vein and AVF creation. Procedure also complicated by pacemaker pacemaker. Dr. Melchor recommended postponing intervention until HD is absolutely needed. History of Present Illness Reason for Consultation: BRYAN/CKD Requesting Physician: Jaime Kong DO Attending Physician: Jaime Kong DO History of Present Illness Mr. Dallin Guevara is an 88-year-old male with advanced kidney dysfunction. The patient was seen and evaluated this evening with regards to worsening kidney dysfunction and decompensated heart failure. The patient is notably hypervolemic and has not demonstrated encouraging response to IV diuretics at this time. Dallin was seen and evaluated with his daughter, granddaughter, and grandson in law at the bedside. The family feels strongly about the patient's starting dialysis. At this time, Dallin states that he does not want dialysis. The patient follows with Dr. Merrill in the outpatient nephrology clinic. He has CKD IV-V with a baseline serum creatinine of 2.5-2.9. Urine sediment has been benign. Urine protein excretion is 0.7-1.6 grams per day. Renal ultrasound demonstrated multiple bilateral cysts. He is aware of the advanced nature of his renal dysfunction. This has been discussed in detail with Dr. Merrill. The patient has visited the hemodialysis unit as an outpatient. He was evaluated by vascular surgery. Dallin has L subclavian artery stenosis. He will require a multistep procedure including DEPUTY TREASURER of L subclavian vein and AVF creation. Procedure also complicated by pacemaker pacemaker. Dr. Melchor recommended postponing intervention until HD is absolutely needed. 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 Following surgery he developed a large recurrent L pleural effusion for which he underwent Pleur-x catheter placement. Medical history is also notable for coronary artery disease, longstanding arterial hypertension, peripheral arterial disease status post bilateral CEA, sick sinus syndrome status post biventricular pacemaker, COPD, hypertension, hyperlipidemia, severe obstructive sleep apnea intolerant of CPAP, chronic atrial fibrillation not on anticoagulation, and osteoarthritis. He lives alone. He describes his baseline activity tolerance is reasonable. He can climb a flight of stairs without significant dyspnea. His daughter visits him daily and assist with meals. Patient enjoys his current quality of life. He states that he does not in vision himself ever living in an assisted living facility. He does not feel that dialysis is consistent with his overall personal goals of care at this time. His family thinks that he has only speaking this way because of depression. They believe he would reconsider if he were at home. Allergies Allergy/AdvReac Type Severity Reaction Status Date / Time amlodipine AdvReac Unknown Swelling Unverified 05/31/19 15:04 Home Medications Home Medications Medication Instructions Recorded Confirmed Type aspirin 81 mg PO [id number] 09/01/18 09/01/18 History carvedilol 12.5 mg PO BID 09/01/18 09/01/18 History carvedilol 25 mg PO BID 09/01/18 09/01/18 History cholecalciferol (vitamin D3) 400 unit PO DAILY 09/01/18 09/01/18 History [Vitamin D3] ferrous sulfate 325 mg PO TID 09/01/18 09/01/18 History hydralazine 25 mg PO BID 09/01/18 09/01/18 History multivitamin 1 tab PO DAILY 09/01/18 09/01/18 History bumetanide 1 mg tablet 1.5 mg PO DAILY tab 05/31/19 05/31/19 History cyanocobalamin (vitamin B-12) 100 100 mcg PO Q OTHER DAY tab 05/31/19 05/31/19 History mcg tablet Patient History Medical History Acute on chronic renal failure (Acute) Atrial fibrillation CHF (congestive heart failure) (Acute) COPD (chronic obstructive pulmonary disease) (Chronic) Hyperlipidemia (Chronic) Hypertension (Chronic) Mild pulmonary hypertension (Chronic) PNA (pneumonia) (Acute) Surgical History No significant past surgical history Social History Preferred Language: Czech Communication Ability: Effective Beliefs That Will Affect Care: None marital status: / Current Living Situation: Alone Current Living Situation Comment: Pt's daughter, Camille, checks in frequently current occupational status: retired Other Information That Helps Us Care for You: No Feels Safe at Home: Yes Safety Concerns: Feels Safe At This Time Smoking Status: Former smoker Tobacco Type: cigarettes ; Hx Alcohol Use: No Hx Substance Use: No Review of Systems Review of Systems: All systems reviewed & are unremarkable except as noted in HPI & below Physical Exam Constitutional: + frail appearing and + edematous; no acute distress Eyes: + anicteric sclerae; no conjunctival abnormality ENMT: Mouth: no oral mucosal abnormality and oral mucous membranes not dry Neck: normal visual inspection and trachea midline Respiratory: normal respiratory effort Auscultation: + diminished lung sounds and + rales Cardiovascular: Rate/Rhythm: + irregularly irregular Heart Sounds: normal S1 and normal S2 Vessels: + JVD Extremities: + edema Gastrointestinal (Abdomen): Percussion/Palpation: abdomen soft; abdomen nontender Musculoskeletal: Extremities: no cyanosis and no clubbing Skin: normal turgor; turgor not decreased Neurologic: Motor/Sensory: no tremor and no asterixis Psychiatric: Orientation: alert and oriented x 3 Results & Data Vital Signs (Past 12 Hours) Vital Signs Temp Pulse Pulse Resp BP Pulse Ox Pulse Ox 07/20/19 16:00 62 07/20/19 15:13 36.4 C L 61 18 135/54 L 91 07/20/19 11:55 36.6 C 60 19 144/56 H 92 07/20/19 10:12 93 Pulse Ox 07/20/19 16:00 07/20/19 15:13 07/20/19 11:55 07/20/19 10:12 91 Laboratory Results Laboratory Results - last 24 hr 07/20/19 05:43 Sodium 141 Potassium 4.5 Chloride 106 Carbon Dioxide 27 Anion Gap 8.0 BUN 74 H Creatinine 2.57 H Est Cr Clr Drug Dosing 18.1 Est GFR ( Amer) 24.6 Est GFR (Non-Af Amer) 21.2 BUN/Creatinine Ratio 28.9 H Glucose 100 H Calcium 8.7 NT-Pro-B Natriuret Pep 01802 H Triglycerides 71 Cholesterol 144 LDL Cholesterol, Calc 98 VLDL Cholesterol, Calc 14 HDL Cholesterol 32 Cholesterol/HDL Ratio 5 Diagnostic Findings Transthoracic echocardiogram demonstrated normal LV function. The LA with markedly dilated. Patient has moderate to severe pulmonary hypertension. PG Care Time/CCT Total # of Minutes Spent Total Time Spent with Patient: Total time spent is greater than 50% in coordination of care (as documented) at patient's floor/unit and/or counseling patient:
[2019-07-21 07:31] LABS: BUN Creatinine Ratio 28.1 (10-20); Calcium 8.4 mg/dl (8.5-10.1); Creatinine Clr Calc Pharmacy 16.2 ml/min; Est GFR (African American) 21.8; Est GFR (Non-African American) 18.8; Potassium 4.2 mmol/L (3.5-5.1)
[2019-07-21] MEDS: HEPARIN SOD 5,000 UNIT/0.5 ML VIAL SQ SCH ×2 (08:06→19:58)
[2019-07-21] MEDS: HydrALAZINE TAB 50 MG TAB PO SCH ×3 (08:34→19:57)
[2019-07-21] MEDS: FERROUS SULFATE 325 MG TAB PO SCH ×2 (08:34→17:01)
[2019-07-21] MEDS: carvediloL 25 MG TAB PO SCH ×2 (08:34→19:58)
[2019-07-21] MEDS: BUMETANIDE 2 MG in SYRINGE 0 ML IV SCH ×3 (09:01→19:57)
--- NOTE | 2019-07-21 10:03 | Cardiology Progress Note ---
Date of Service July 21, 2019 Subjective He looks much better today.He is less short of breath. He is reading the paper and talking in sentences without dyspnea. His abdomen is less distended his lower extremity edema is much improved. He denies any chest pain or chest pressure. His affect appears much better and he looks more like his usual self. PHYSICAL EXAMINATION: GENERAL: He is awake, alert and oriented x3. He Looks much better than yesterday. HEENT: 2+ carotid upstrokes, no evidence of carotid bruits. Jugular venous pressure appeared elevated. Sclerae is anicteric. His hearing is normal. LUNGS: Clear to auscultation bilaterally with faint crackles in the bases bilaterally. HEART: Regular rate and rhythm (paced). He has a 2/6 holosystolic murmur at the apex. ABDOMEN: Soft, Mildlydistended. Positive bowel sounds, nontender. EXTREMITIES: Mild to moderate pitting edema to the mid tibia with the use of compression stockings much improved compared to yesterday PSYCHIATRIC: His affect appeared appropriate. IMPRESSION: 1. Acute on chronic diastolic heart failure. 2. Cardiorenal syndrome. 3. Chronic kidney disease stage V. 4. 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 5. Biventricular pacemaker. 6. Chronic atrial fibrillation. He is improving and his weight is down 4-1/2 pounds. In discussion with the nephrology service we will continue with 2 mg of IV Bumex 3 times daily. He seems to have had a reasonable diuresis without significant worsening of his underlying chronic kidney disease. His electrolytes are stable. I did discuss with the hospitalist service ongoing diuresis. Fully he will continue to lose weight without worsening of his underlying renal function. The challenge is Our ability to maintain his fluid status as an outpatient. His blood pressure remains elevated hopefully as we diurese him his pressure will improve if not we can continue to uptitrate his hydralazine From 50 mg 3 times daily to 100 mg 3 times daily. Results & Data Vital Signs (Past 12 Hours) Vital Signs Temp Pulse Pulse Resp BP Pulse Ox 07/21/19 08:02 36.7 C 66 18 172/56 H 99 07/21/19 06:45 64 07/21/19 03:25 36.4 C L 60 18 176/51 H 95 07/20/19 23:48 36.7 C 61 20 139/53 L 95
--- NOTE | 2019-07-21 10:11 | Nephrology Progress Note ---
Date of Service July 21, 2019 Assessment & Plan (1) Acute on chronic combined systolic (congestive) and diastolic (congestive) heart failure: Continue Bumex 2 mg IV TID. Document strict I/O and daily AM weight. (2) CKD (chronic kidney disease), stage IV: 88-year-old male with coronary artery disease, sick sinus syndrome with pacemaker, history of severe aortic stenosis requiring valve replacement, peripheral arterial disease with claudication and h/oendarterectomy, COPD, pulmonary hypertension, obstructive sleep apnea intolerant of CPAP, in advanced chronic kidney disease. His baseline creatinine has been approximately 2.5 milligrams/deciliter. He has left arm subclavian stenosis complicating AV fistula placement. He will require a multistep procedure including RIVET MACHINE OPERATOR of L subclavian vein and AVF creation. Procedure also complicated by pacemaker pacemaker. Dr. Melchor recommended postponing intervention until HD is absolutely needed. There is no emergent indication for dialysis at this time. Electrolytes are normal. UOP improved. BP acceptable. Potential future indications for SHEARER SCREEN MEASURER AND TRIMMER reviewed with the patient this morning. Importance of close monitoring reviewed. Continue diuretics to maintain negative fluid balance. Subjective No acute event overnight. I/O's not completely accurate due to patient flushing urine. Weight is down 2 kg. Overall, Dallin states that he feels well. He denies dyspnea. Appetite is good. Edema persists. Activity tolerance is reduced. He denies any lightheadedness or dizziness. Review of Systems Review of Systems: All systems reviewed & are unremarkable except as noted in HPI & below Physical Exam Constitutional: + frail appearing; no acute distress Eyes: + anicteric sclerae; no conjunctival abnormality ENMT: Mouth: no oral mucosal abnormality and oral mucous membranes not dry Neck: normal visual inspection and trachea midline Respiratory: normal respiratory effort Auscultation: + rales (improved) Cardiovascular: Heart Sounds: normal S1 Vessels: + JVD Extremities: + edema Gastrointestinal (Abdomen): Percussion/Palpation: abdomen soft; abdomen nontender Musculoskeletal: Extremities: no cyanosis and no clubbing Skin: + turgor decreased; no rashes Neurologic: Motor/Sensory: no tremor and no asterixis Results & Data Vital Signs (Past 12 Hours) Vital Signs Temp Pulse Pulse Resp BP Pulse Ox 07/21/19 08:02 36.7 C 66 18 172/56 H 99 07/21/19 06:45 64 07/21/19 03:25 36.4 C L 60 18 176/51 H 95 07/20/19 23:48 36.7 C 61 20 139/53 L 95 Laboratory Results Laboratory Results - last 24 hr 07/21/19 07/21/19 06:02 07:17 Sodium 140 Potassium 4.2 Chloride 104 Carbon Dioxide 26 Anion Gap 10.0 BUN 80 H Creatinine 2.84 H Est Cr Clr Drug Dosing 16.2 Est GFR ( Amer) 21.8 Est GFR (Non-Af Amer) 18.8 BUN/Creatinine Ratio 28.1 H Glucose 145 H POC Glucose 187 H Calcium 8.4 L PG Care Time/CCT Total # of Minutes Spent Total Time Spent with Patient: Total time spent is greater than 50% in coordination of care (as documented) at patient's floor/unit and/or counseling patient:
--- NOTE | 2019-07-21 16:24 | Hospitalist Progress Note ---
Date of Service July 21, 2019 Assessment & Plan (1) Acute on chronic combined systolic (congestive) and diastolic (congestive) heart failure: echo shows LV hypertrophy but EF is normal, this is improvement compared to 12/2018, likely due to placement of biventricular pacer it does show however elevated pulmonary pressures, dilated left and right atrium, moderate mitral regurgitation did not respond much at all to Bumex 1mg IV q12 better response with Bumex 2mg IV TID, less edema, weight down and negative fluid balance pay close attention to renal function with diuresis, Cr up slightly at 2.8 fluid restriction, daily weights, strict I/O, low sodium diet continue Bumex 2mg TID long discussion with patient and his family at the bedside on 07/20 discussed that we will try Bumex TID and then perhaps Bumex drip his echocardiogram shows a preserved EF so the heart failure is diastolic and right sided explained that these situations can be difficult to manage with just medications sometimes dialysis is the only option patient has expressed that he would NOT want hemodialysis when his family is present they tend to push the issue we decided that we would involve nephrology so that they can follow will see how he responds to Bumex over next 48 hours may need to involve palliative care in discussions (2) CKD (chronic kidney disease), stage IV: Cr is 2.8 today, up slightly from 2.5 would expect Cr to rise with aggressive Bumex dosing monitor potassium levels, 4.[address] Merrill outpatient has had discussions about hemodialysis in preparation for a situation like this he even visited an HD clinic with his daughter when asked alone, the patient stated that he would NOT want hemodialysis when his daughter and grand daughter are present they tend to push him to consider it however, he was even evaluated by Dr. 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 would not be a good candidate for fistula (3) Shortness of breath: likely due to acute heart failure lungs are clear, denies any dyspnea at rest, just on exertion but better today after diuresis PT consulted to ambulate patient (4) COPD (chronic obstructive pulmonary disease): Not in exacerbation (5) Mild pulmonary hypertension: pressures are quite high in the 50mmHg range likely contributing to some right sided heart failure (6) Hyperlipidemia: Continue statin, check lipids panel (7) Hypertension: Continue home meds and titrate based on pressure measurement (8) Gouty arthritis: treat again today with Colchicine 0.6mg and Prednisone 20mg responded well last night Cr is too high to use chronic suppression dosing of Colchicine and Allopurinol Subjective patient did well today, more diuresis, Cr holding at 2.8 which is in his normal range electrolytes stable he feels a lot better, less dyspnea, less edema eating well, no chest pain or pressure, moving his bowels discussed with Dr. Howell, will continue on Bumex 2gm IV TID updated patient's daughter at the bedside later in the evening his great toe hurt again, similar to last night said he got relief with the Colchicine and Prednisone, will try again Review of Systems Constitutional: + fatigue and + weakness; no fever Respiratory: + dyspnea on exertion; no cough and no dyspnea Cardiovascular: + edema; no chest pain, no palpitations and no syncope Gastrointestinal: no abdominal pain, no nausea, no vomiting, no constipation and no diarrhea/loose stools Musculoskeletal: + joint pain (big toes bilaterally) Physical Exam 2 Constitutional: WD/WN, vitals as above Eyes: PERRL, conjunctivae normal, anicteric sclerae ENMT: external ear and nose normal, oropharynx normal Neck: trachea midline, no thyromegaly Respiratory: normal respiratory effort, lungs clear to auscultation Cardiovascular: Rate/Rhythm: regular rate and regular rhythm Heart Sounds: normal S1 and normal S2; no murmur Vessels: + JVD Extremities: normal capillary refill and + edema (pitting to the thighs) Gastrointestinal (Abdomen): normal bowel sounds, soft, nontender, no hepatosplenomegaly Musculoskeletal: no cyanosis or clubbing, extremities motor strength 5/5 Skin: no rashes, warm and dry Neurologic: patellar DTR's 2+ bilat, sensation intact and PERRL, EOMI, accommodation nl, no face palsy, no dysarthria Psychiatric: A+Ox3, euthymic affect Lymphatic: no cervical or axillary lymphadenopathy Results & Data Vital Signs (Past 12 Hours) Vital Signs Temp Pulse Pulse Pulse Resp BP Pulse Ox 07/21/19 15:52 36.4 C L 60 18 148/52 H 99 07/21/19 14:16 60 152/84 H 07/21/19 08:02 36.7 C 66 18 172/56 H 99 07/21/19 06:45 64 Laboratory Results Laboratory Results - last 24 hr 07/21/19 07/21/19 06:02 07:17 Sodium 140 Potassium 4.2 Chloride 104 Carbon Dioxide 26 Anion Gap 10.0 BUN 80 H Creatinine 2.84 H Est Cr Clr Drug Dosing 16.2 Est GFR ( Amer) 21.8 Est GFR (Non-Af Amer) 18.8 BUN/Creatinine Ratio 28.1 H Glucose 145 H POC Glucose 187 H Calcium 8.4 L Medications Administered Current Inpatient Medications Acetaminophen (Tylenol) 650 mg PO Q4H PRN PRN Reason: Pain or Fever Stop: 08/18/19 12:22 Last Admin: 07/20/19 15:48 Dose: 650 mg Documented by: Al Hydrox/Mg Hydrox/Simethicone (Maalox) 15 ml PO Q4H PRN PRN Reason: Dyspepsia Stop: 08/18/19 12:22 Aspirin (Ecotrin Ectab) 81 mg PO MoWeFr@0900 [facility] Stop: 08/19/19 08:59 Last Admin: 07/20/19 08:47 Dose: 81 mg Documented by: Carvedilol (Coreg) 37.5 mg PO BID [facility] Stop: 08/18/19 20:59 Last Admin: 07/21/19 08:34 Dose: 37.5 mg Documented by: Colchicine (Colcrys) 0.6 mg PO NOW ONE Stop: 07/21/19 16:24 Ferrous Sulfate (Feosol) 325 mg PO BIDM [facility] Stop: 08/18/19 16:59 Last Admin: 07/21/19 08:34 Dose: 325 mg Documented by: Heparin Sodium (Porcine) (Heparin Sodium (Porcine)) 5,000 units SQ Q12 [facility] Stop: 08/18/19 20:59 Last Admin: 07/21/19 08:06 Dose: Not Given Documented by: Hydralazine HCl (Apresoline) 50 mg PO TID [facility] Stop: 08/19/19 13:59 Last Admin: 07/21/19 14:45 Dose: 50 mg Documented by: Bumetanide 2 mg/ Syringe 8 mls @ 4 mls/min IV TID [facility] Stop: 08/19/19 13:59 Last Admin: 07/21/19 14:19 Dose: 4 mls/min Documented by: Magnesium Hydroxide (Milk Of Magnesia) 30 ml PO Q12H PRN PRN Reason: Constipation Stop: 08/18/19 12:22 Nitroglycerin (Nitrostat) 0.4 mg SL UD PRN PRN Reason: Chest Pain Stop: 08/18/19 12:22 Polyethylene Glycol (Miralax Powder Packet) 17 gm PO DAILY PRN PRN Reason: Constipation Stop: 08/18/19 12:22 Prednisone (Prednisone) 20 mg PO NOW STA Stop: 07/21/19 16:24 PG Care Time/CCT Total # of Minutes Spent Total Time Spent: 42 Total Time Spent with Patient: Total time spent is greater than 50% in coordination of care (as documented) at patient's floor/unit and/or counseling patient:
[2019-07-21] MEDS ORDERED: predniSONE 20 MG TAB PO ONE (17:00)
[2019-07-21] MEDS ORDERED: COLCHICINE 0.6 MG TAB PO ONE (17:00)
[2019-07-22 06:28] LABS: BUN Creatinine Ratio 27.6 (10-20); Calcium 8.1 mg/dl (8.5-10.1); Creatinine Clr Calc Pharmacy 14.9 ml/min; Est GFR (African American) 19.8; Est GFR (Non-African American) 17.1; Potassium 3.9 mmol/L (3.5-5.1)
[2019-07-22] MEDS: HEPARIN SOD 5,000 UNIT/0.5 ML VIAL SQ SCH ×3 (07:34→20:46)
[2019-07-22] MEDS: carvediloL 25 MG TAB PO SCH ×2 (07:34→20:42)
[2019-07-22] MEDS: FERROUS SULFATE 325 MG TAB PO SCH ×2 (07:35→17:25)
[2019-07-22] MEDS: HydrALAZINE TAB 50 MG TAB PO SCH ×3 (07:35→20:42)
[2019-07-22] MEDS: ASPIRIN 81 MG ECTAB PO SCH (07:36)
--- NOTE | 2019-07-22 08:27 | Cardiology Progress Note ---
Date of Service July 22, 2019 Subjective He is feeling better this morning. Although his legs to me do look slightly m ore swollen than yesterday. When I saw him yesterday though his compression stockings were on. He is not short of breath talking in sentences this morning. His abdomen is less distended. He did walk around the entire loop of the second floor and had some mild dyspnea at the end and some mild leg weakness. He denies any lightheadedness dizziness presyncope or syncope. Denies any chest pain or chest pressure. Results & Data Vital Signs (Past 12 Hours) Vital Signs Temp Pulse Resp BP Pulse Ox 07/22/19 07:21 36.5 C 61 17 155/64 H 98 07/22/19 04:34 36.5 C 60 18 153/65 H 95 07/21/19 23:30 36.6 C 62 19 149/62 H 90 PHYSICAL EXAMINATION: GENERAL: He is awake, alert and oriented x3. He Looks much better HEENT: 2+ carotid upstrokes, no evidence of carotid bruits. Jugular venous pressure appeared elevated. Sclerae is anicteric. His hearing is normal. LUNGS: Clear to auscultation bilaterally with decreased breath sounds in the right base HEART: Regular rate and rhythm (paced). He has a 2/6 holosystolic murmur at the apex. ABDOMEN: Soft, Mildly distended. Positive bowel sounds, nontender. EXTREMITIES: Mild to moderate pitting edema to the mid tibia PSYCHIATRIC: His affect appeared appropriate. IMPRESSION: 1. Acute on chronic diastolic heart failure. 2. Cardiorenal syndrome. 3. Chronic kidney disease stage V. 4. 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 5. Biventricular pacemaker. 6. Chronic atrial fibrillation. He is only negative a liter which is confirmed by his weight for which she is only down a kilogram with mild worsening of his renal function. We will have to discuss with nephrology whether we consider a Bumex drip or increase his Bumex to 2 mg every 6 hours. I did have a long conversation with Mr. Guevara with regards to the potential need for dialysis. It sounds like his family is pushing for dialysis and he remains unsure. He is smart enough to know that the chance of coming off dialysis once he starts it is very slim. We did discuss dialysis 3 days a week and how that would impact his quality of life. In addition we discussed the associated fatigue with dialysis on the 3 days that he has it. On the positive side I discussed with him he is very functional and his brain is intact and this would allow him to extend his life. We discussed that everything in medicine is a risk benefit along with weighing the quality of his life.
[2019-07-22 09:37] LABS: Appearance Urine Clear (Clear); Bacteria Urine Automated Negative (Negative); Bilirubin Urine Negative (Negative); Blood Urine Negative (Negative); Color Urine Yellow; Glucose Urine UA Negative (Negative); Ketones Urine Negative (Negative); Leukocyte Esterase Urine Negative (Negative); Nitrite Urine Negative (Negative); Protein Urine 1+ (Negative); RBC Urine Automated 0-4 /hpf (0-4); Specific Gravity Urine 1.015 (1.000-1.030); Urobilinogen Urine Negative (Negative); WBC Urine Automated 0 /hpf (0-5)
[2019-07-22] MEDS: BUMETANIDE 2 MG in SYRINGE 0 ML IV SCH ×3 (10:02→20:42)
[2019-07-22 10:04] LABS: Creatinine Clr Calc Pharmacy 14.5 ml/min; Est GFR (African American) 19.2; Est GFR (Non-African American) 16.5
--- NOTE | 2019-07-22 10:04 | Nephrology Progress Note ---
Date of Service July 22, 2019 Assessment & Plan (1) Acute on chronic combined systolic (congestive) and diastolic (congestive) heart failure: Continue to diurese with Bumex 2 TID. No changes to treatment at this time. Document strict I/O and daily AM weight. (2) CKD (chronic kidney disease), stage IV: 88-year-old male with coronary artery disease, sick sinus syndrome with pacemaker, history of severe aortic stenosis requiring valve replacement, peripheral arterial disease with claudication and h/o endarterectomy, COPD, pulmonary hypertension, obstructive sleep apnea intolerant of CPAP, in advanced chronic kidney disease. His baseline creatinine has been approximately 2.5 milligrams/deciliter. He has left arm subclavian stenosis complicating AV fistula placement. He will require a multistep procedure including CARD HANGER of L subclavian vein and AVF creation. Procedure also complicated by pacemaker pacemaker. Dr. Melchor recommended postponing intervention until HD is absolutely needed. There is no emergent indication for dialysis at this time. Electrolytes are normal. UOP appropriate. BP controlled. Potential future indications for LABOR SUPERVISOR reviewed with the patient. Importance of close monitoring reviewed. Continue diuretics to maintain negative fluid balance. Urine studies: +1 protein, acellular microscopy. Renal US will be updated this morning given continued rise in creatinine. BRYAN consistent with advanced CKD and CRS in setting of diuresis. Will continue to monitor. Medications are appropriately dosed for kidney function. For anemia, H/H will be checked tomorrow with AM labs. Subjective No acute events overnight. Dallin feels well this morning. He notes continued improvement in symptoms. He is ambulating in the cross. He denies significant dyspnea. Edema improving. Review of Systems Review of Systems: All systems reviewed & are unremarkable except as noted in HPI & below Physical Exam Constitutional: + frail appearing; no acute distress Eyes: + anicteric sclerae; no conjunctival abnormality ENMT: Mouth: no oral mucosal abnormality and oral mucous membranes not dry Neck: normal visual inspection and trachea midline Respiratory: normal respiratory effort Cardiovascular: Rate/Rhythm: + irregularly irregular Heart Sounds: normal S1 and normal S2 Vessels: + JVD Extremities: + edema Gastrointestinal (Abdomen): Percussion/Palpation: abdomen soft; abdomen nontender Musculoskeletal: Extremities: no cyanosis and no clubbing Skin: + turgor decreased; no rashes Neurologic: Motor/Sensory: no tremor and no asterixis Psychiatric: Orientation: alert and oriented x 3 Results & Data Vital Signs (Past 12 Hours) Vital Signs Temp Pulse Resp BP Pulse Ox 07/22/19 07:21 36.5 C 61 17 155/64 H 98 07/22/19 04:34 36.5 C 60 18 153/65 H 95 07/21/19 23:30 36.6 C 62 19 149/62 H 90 Laboratory Results Laboratory Results - last 24 hr 07/22/19 07/22/19 07/22/19 05:33 08:56 09:20 Sodium 139 Potassium 3.9 Chloride 103 Carbon Dioxide 28 Anion Gap 8.0 BUN 85 H Creatinine 3.07 H 3.16 H Est Cr Clr Drug Dosing 14.9 14.5 Est GFR ( Amer) 19.8 19.2 Est GFR (Non-Af Amer) 17.1 16.5 BUN/Creatinine Ratio 27.6 H Glucose 151 H Calcium 8.1 L Urine Color Urine Appearance Urine pH Ur Specific [place] Urine Protein Urine Glucose (UA) Urine Ketones Urine Blood Urine Nitrite Urine Bilirubin Urine Urobilinogen Ur Leukocyte Esterase Urine WBC (Auto) Urine RBC (Auto) U Hyaline Cast (Auto) U Epithel Cells (Auto) Urine Bacteria (Auto) Ur Random Sodium 72 07/22/19 09:20 Sodium Potassium Chloride Carbon Dioxide Anion Gap BUN Creatinine Est Cr Clr Drug Dosing Est GFR ( Amer) Est GFR (Non-Af Amer) BUN/Creatinine Ratio Glucose Calcium Urine Color Yellow Urine Appearance Clear Urine pH 5.0 Ur Specific [place] 1.015 Urine Protein 1+ H Urine Glucose (UA) Negative Urine Ketones Negative Urine Blood Negative Urine Nitrite Negative Urine Bilirubin Negative Urine Urobilinogen Negative Ur Leukocyte Esterase Negative Urine WBC (Auto) 0 Urine RBC (Auto) 0-4 U Hyaline Cast (Auto) 1-5 U Epithel Cells (Auto) 5-10 H Urine Bacteria (Auto) Negative Ur Random Sodium PG Care Time/CCT Total # of Minutes Spent Total Time Spent with Patient: Total time spent is greater than 50% in coordination of care (as documented) at patient's floor/unit and/or counseling patient:
--- NOTE | 2019-07-22 10:10 | Ultrasound Report ---
US renal/blad retro comp CLINICAL HISTORY: 88 years-old Male presenting with BYRAN. TECHNIQUE: Real-time grayscale and limited color Doppler ultrasound imaging of the kidneys and bladde r was performed. COMPARISON: None. FINDINGS: Right kidney: Increased echogenicity of renal parenchyma with diffuse parenchymal atrophy. Right kidn ey measures 10.0 cm. No hydronephrosis. 4 mm parenchymal hyperechogenic nonshadowing focus in the int erpolar region. Upper pole 3.2 cm cyst, which is likely adjacent to another smaller simple cyst. Cyst s are also noted elsewhere Left kidney: Increased echogenicity of renal parenchyma with diffuse parenchymal atrophy. Left kidney measures 10.7 cm. No hydronephrosis. Multiple cysts are present the largest at the lower pole measur ing 2.4 cm. Bladder: Normal. Bilateral ureteral jets not visualized. Other: Bilateral pleural effusions, which are moderate in size. IMPRESSION: 1. Cortical atrophy and evidence of medical renal disease. 2. No hydronephrosis. 3. Bilateral renal cysts. 4. Possible parenchymal 4 mm calcification the right kidney. Electronically signed by: Jose Durán M.D. 07/22/2019 10:08 AM
--- NOTE | 2019-07-22 15:51 | Hospitalist Progress Note ---
Date of Service July 22, 2019 Assessment & Plan (1) Acute on chronic combined systolic (congestive) and diastolic (congestive) heart failure: echo shows LV hypertrophy but EF is normal, this is improvement compared to 12/2018, likely due to placement of biventricular pacer it does show however elevated pulmonary pressures, dilated left and right atrium, moderate mitral regurgitation did not respond much at all to Bumex 1mg IV q12 better response with Bumex 2mg IV TID, less edema, weight down and negative fluid balance pay close attention to renal function with diuresis, Cr up to 3.1 today fluid restriction, daily weights, strict I/O, low sodium diet weight down 2kg, negative 2500cc for admission continue Bumex 2mg TID long discussion with patient and his family at the bedside on 07/20 discussed that we will try Bumex TID and then perhaps Bumex drip his echocardiogram shows a preserved EF so the heart failure is diastolic and right sided explained that these situations can be difficult to manage with just medications sometimes dialysis is the only option patient has expressed that he would NOT want hemodialysis when his family is present they tend to push the issue we decided that we would involve nephrology so that they can follow will see how he responds to Bumex over the weekend (2) CKD (chronic kidney disease), stage IV: Cr is 3.1 today, up slightly from 2.8 would expect Cr to rise with aggressive Bumex dosing monitor potassium levels, 3.9 today renal US today showed no evidence of obstruction follows with Dr. Merrill outpatient has had discussions about hemodialysis in preparation for a situation like this he even visited an HD clinic with his daughter when asked alone, the patient stated that he would NOT want hemodialysis when his daughter and grand daughter are present they tend to push him to consider it however, he was even evaluated by Dr. 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 would not be a good candidate for fistula (3) Shortness of breath: likely due to acute heart failure lungs are clear, denies any dyspnea at rest, just on exertion but better the past two days with diuresis PT consulted to ambulate patient (4) COPD (chronic obstructive pulmonary disease): Not in exacerbation (5) Mild pulmonary hypertension: pressures are quite high in the 50mmHg range likely contributing to some right sided heart failure (6) Hyperlipidemia: Continue statin, check lipids panel (7) Hypertension: Continue home meds and titrate based on pressure measurement (8) Gouty arthritis: Colchicine 0.6mg and Prednisone 20mg responded well the past two nights no further pain today Cr is too high to use chronic suppression dosing of Colchicine and Allopurinol Subjective continues to diurese slightly, Cr is rising though, > 3 today no further pain in toes today, says that the Prednisone and Colchicine last night helped a lot eating well, following fluid restriction ambulated quite far today, some dyspnea when he got back but otherwise did well weight down over 2kg for admission, negative 2500cc d/w Dr. Howell, may want to push Bumex further d/w Dr. Nixon, he would like to keep the Bumex at 2mg TID and watch renal function patient may even go home on TID Bumex if needed K is stable at 3.9 BP going up, will increase Hydralazine to max dose Review of Systems Review of Systems: All systems reviewed & are unremarkable except as noted in HPI & below Constitutional: + fatigue and + weakness; no fever and no sweats Respiratory: + dyspnea on exertion; no dyspnea Cardiovascular: + dyspnea on exertion and + edema; no chest pain, no dyspnea, no orthopnea and no syncope Gastrointestinal: no abdominal pain, no nausea, no vomiting, no constipation and no diarrhea/loose stools Physical Exam Constitutional: WD/WN, vitals as above Eyes: PERRL, conjunctivae normal, anicteric sclerae ENMT: external ear and nose normal, oropharynx normal Neck: trachea midline, no thyromegaly Respiratory: normal respiratory effort, lungs clear to auscultation Cardiovascular: Rate/Rhythm: regular rate and regular rhythm Heart Sounds: normal S1 and normal S2; no murmur Extremities: normal capillary refill and + edema (pitting to the knees, improving slowly) Gastrointestinal (Abdomen): normal bowel sounds, soft, nontender, no hepatosplenomegaly Musculoskeletal: no cyanosis or clubbing, extremities motor strength 5/5 Skin: no rashes, warm and dry Neurologic: patellar DTR's 2+ bilat, sensation intact and PERRL, EOMI, accommodation nl, no face palsy, no dysarthria Psychiatric: A+Ox3, euthymic affect Lymphatic: no cervical or axillary lymphadenopathy Results & Data Vital Signs (Past 12 Hours) Vital Signs Temp Pulse Pulse Resp BP Pulse Ox 07/22/19 13:59 60 15 167/66 H 98 07/22/19 11:06 36.4 C L 60 17 162/79 H 99 07/22/19 07:21 36.5 C 61 17 155/64 H 98 07/22/19 06:45 60 07/22/19 04:34 36.5 C 60 18 153/65 H 95 Laboratory Results Laboratory Results - last 24 hr 07/22/19 07/22/19 07/22/19 05:33 08:56 09:20 Sodium 139 Potassium 3.9 Chloride 103 Carbon Dioxide 28 Anion Gap 8.0 BUN 85 H Creatinine 3.07 H 3.16 H Est Cr Clr Drug Dosing 14.9 14.5 Est GFR ( Amer) 19.8 19.2 Est GFR (Non-Af Amer) 17.1 16.5 BUN/Creatinine Ratio 27.6 H Glucose 151 H Calcium 8.1 L Urine Color Urine Appearance Urine pH Ur Specific [place] Urine Protein Urine Glucose (UA) Urine Ketones Urine Blood Urine Nitrite Urine Bilirubin Urine Urobilinogen Ur Leukocyte Esterase Urine WBC (Auto) Urine RBC (Auto) U Hyaline Cast (Auto) U Epithel Cells (Auto) Urine Bacteria (Auto) Ur Random Sodium 72 07/22/19 09:20 Sodium Potassium Chloride Carbon Dioxide Anion Gap BUN Creatinine Est Cr Clr Drug Dosing Est GFR ( Amer) Est GFR (Non-Af Amer) BUN/Creatinine Ratio Glucose Calcium Urine Color Yellow Urine Appearance Clear Urine pH 5.0 Ur Specific [place] 1.015 Urine Protein 1+ H Urine Glucose (UA) Negative Urine Ketones Negative Urine Blood Negative Urine Nitrite Negative Urine Bilirubin Negative Urine Urobilinogen Negative Ur Leukocyte Esterase Negative Urine WBC (Auto) 0 Urine RBC (Auto) 0-4 U Hyaline Cast (Auto) 1-5 U Epithel Cells (Auto) 5-10 H Urine Bacteria (Auto) Negative Ur Random Sodium Medications Administered Current Inpatient Medications Acetaminophen (Tylenol) 650 mg PO Q4H PRN PRN Reason: Pain or Fever Stop: 08/18/19 12:22 Last Admin: 07/20/19 15:48 Dose: 650 mg Documented by: Al Hydrox/Mg Hydrox/Simethicone (Maalox) 15 ml PO Q4H PRN PRN Reason: Dyspepsia Stop: 08/18/19 12:22 Aspirin (Ecotrin Ectab) 81 mg PO MoWeFr@0900 [facility] Stop: 08/19/19 08:59 Last Admin: 07/22/19 07:36 Dose: 81 mg Documented by: Carvedilol (Coreg) 37.5 mg PO BID [facility] Stop: 08/18/19 20:59 Last Admin: 07/22/19 07:34 Dose: 37.5 mg Documented by: Ferrous Sulfate (Feosol) 325 mg PO BIDM [facility] Stop: 08/18/19 16:59 Last Admin: 07/22/19 07:35 Dose: 325 mg Documented by: Heparin Sodium (Porcine) (Heparin Sodium (Porcine)) 5,000 units SQ Q12 [facility] Stop: 08/18/19 20:59 Last Admin: 07/22/19 07:34 Dose: Not Given Documented by: Hydralazine HCl (Apresoline) 50 mg PO TID [facility] Stop: 08/19/19 13:59 Last Admin: 07/22/19 14:01 Dose: 50 mg Documented by: Bumetanide 2 mg/ Syringe 8 mls @ 4 mls/min IV TID [facility] Stop: 08/19/19 13:59 Last Admin: 07/22/19 14:01 Dose: 4 mls/min Documented by: Magnesium Hydroxide (Milk Of Magnesia) 30 ml PO Q12H PRN PRN Reason: Constipation Stop: 08/18/19 12:22 Nitroglycerin (Nitrostat) 0.4 mg SL UD PRN PRN Reason: Chest Pain Stop: 08/18/19 12:22 Polyethylene Glycol (Miralax Powder Packet) 17 gm PO DAILY PRN PRN Reason: Constipation Stop: 08/18/19 12:22 PG Care Time/CCT Total # of Minutes Spent Total Time Spent with Patient: Total time spent is greater than 50% in coordination of care (as documented) at patient's floor/unit and/or counseling patient:
[2019-07-22] MEDS ORDERED: Nursing to Pharmacy Communication ONE (17:30)
[2019-07-23 05:48] LABS: Hematocrit (blood only) 30.3 % (42-52); Hemoglobin 9.8 g/dL (14.0-18.0); Mean Corpuscular Hgb Conc 32.3 g/dL (32-36); Mean Platelet Volume 10.9 fL (7.4-10.4); Platelet Count 133 K/uL (130-400); RDW Coefficient of Variation 14.6 % (11.5-14.5); RDW Standard Deviation 54.4 fL (36.4-46.3); Red Blood Count 2.97 M/uL (4.7-6.1); White Blood Count 6.59 K/uL (4.8-10.8)
[2019-07-23 06:20] LABS: BUN Creatinine Ratio 30.5 (10-20); Calcium 8.2 mg/dl (8.5-10.1); Creatinine Clr Calc Pharmacy 15.9 ml/min; Est GFR (African American) 21.6; Est GFR (Non-African American) 18.6; Potassium 3.5 mmol/L (3.5-5.1)
[2019-07-23] MEDS: FERROUS SULFATE 325 MG TAB PO SCH (08:50)
[2019-07-23] MEDS: carvediloL 25 MG TAB PO SCH (08:50)
[2019-07-23] MEDS: HydrALAZINE TAB 50 MG TAB PO SCH ×2 (08:50→13:12)
[2019-07-23] MEDS: BUMETANIDE 2 MG in SYRINGE 0 ML IV SCH (08:51)
[2019-07-23] MEDS: HEPARIN SOD 5,000 UNIT/0.5 ML VIAL SQ SCH (08:52)
[2019-07-23] MEDS: POTASSIUM CHLORIDE 20 MEQ TABCR PO SCH ×2 (08:53→12:23)
--- NOTE | 2019-07-23 11:43 | Nephrology Progress Note ---
Date of Service July 23, 2019 Assessment & Plan (1) Acute on chronic combined systolic (congestive) and diastolic (congestive) heart failure: Clinically continues to improve. Bumex switched from 2 mg IV TID to 3 mg PO BID today. Continue to document daily weights. (2) CKD (chronic kidney disease), stage IV: 88-year-old male with coronary artery disease, sick sinus syndrome with pacemaker, history of severe aortic stenosis requiring valve replacement, peripheral arterial disease with claudication and h/o endarterectomy, COPD, pulmonary hypertension, obstructive sleep apnea intolerant of CPAP, in advanced chronic kidney disease. His baseline creatinine has been approximately 2.5 milligrams/deciliter. He has left arm subclavian stenosis complicating AV fistula placement. He will require a multistep procedure including WAIST PLEATER of L subclavian vein and AVF creation. Procedure also complicated by pacemaker pacemaker. Dr. Melchor recommended postponing intervention until HD is absolutely needed. Dallin is unsure whether he would ever want dialysis. There is no emergent indication for dialysis at this time. Electrolytes are normal. UOP appropriate. BP controlled. Potential future indications for HEEL WHEELER reviewed with the patient. Importance of close monitoring reviewed. Outpatient follow up within 2 weeks to be arranged with Dr. Merrill at discharge. Please check a metabolic profile within 1 week of discharge and fax the results to . Continue diuretics to maintain negative fluid balance. Switched to twice daily Bumex PO today. Urine studies: +1 protein, acellular microscopy. Renal US demonstrates significant chronic changes but nothing acute.. BRYAN consistent with advanced CKD and CRS in setting of diuresis. Creatinine stable with slight improvement today given adequate urine output. Patient remains apprehensive about dialysis. Medications are appropriately dosed for kidney function. For anemia, Hgb stable at ~10. JACINDA therapy held. Subjective No acute events overnight. Laying flat in bed this morning. Ambulating in cross earlier today. Overall feels well. Edema continues to improve. Weight is down to 72 kg. Appetite is good. No urinary complaints. Denies dyspnea. Review of Systems Review of Systems: All systems reviewed & are unremarkable except as noted in HPI & below Physical Exam Constitutional: + frail appearing; no acute distress Eyes: + anicteric sclerae; no conjunctival abnormality ENMT: Mouth: no oral mucosal abnormality and oral mucous membranes not dry Neck: normal visual inspection and trachea midline Respiratory: normal respiratory effort Auscultation: + rales (improved) Cardiovascular: Heart Sounds: normal S1 and normal S2 Vessels: + JVD Extremities: + edema Gastrointestinal (Abdomen): Percussion/Palpation: abdomen soft; abdomen nontender Musculoskeletal: Extremities: no cyanosis and no clubbing Skin: + turgor decreased; no rashes Neurologic: Motor/Sensory: no tremor and no asterixis Psychiatric: Orientation: alert and oriented x 3 Results & Data Vital Signs (Past 12 Hours) Vital Signs Temp Pulse Resp BP Pulse Ox 07/23/19 08:10 36.6 C 60 20 148/59 H 93 07/23/19 04:36 36.4 C L 75 18 153/62 H 94 Laboratory Results Laboratory Results - last 24 hr 07/23/19 07/23/19 05:24 05:24 WBC 6.59 RBC 2.97 L Hgb 9.8 L Hct 30.3 L MCV 102.0 H MCH 33.0 MCHC 32.3 RDW Std Deviation 54.4 H RDW Coeff of Maya 14.6 H Plt Count 133 MPV 10.9 H Sodium 140 Potassium 3.5 Chloride 102 Carbon Dioxide 30 Anion Gap 8.0 BUN 87 H Creatinine 2.86 H D Est Cr Clr Drug Dosing 15.9 Est GFR ( Amer) 21.6 Est GFR (Non-Af Amer) 18.6 BUN/Creatinine Ratio 30.5 H Glucose 99 Calcium 8.2 L PG Care Time/CCT Total # of Minutes Spent Total Time Spent with Patient: Total time spent is greater than 50% in coordination of care (as documented) at patient's floor/unit and/or counseling patient:
--- NOTE | 2019-07-23 13:22 | Discharge Summary ---
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 Patient was sent from Dr. Farley's office today due to worsening symptoms of his congestive heart failure. Patient stated that he gained about 15 pounds in the last 2 to 3 weeks, his lower extremity swelling got significantly worse, he also developed progressive shortness of breath. His shortness of breath is mainly exertional but also happens at rest, associated with some chest tightness. Patient uses a wedge to elevate the head of the bed when he sleeps. Denies any chest pain. Patient is not sure if he has history of atrial fibrillation or not, family denied any history of irregular heartbeats or history of anticoagulation. Discussed with patient and family CODE STATUS, he wishes to be full code, he said he does not want to be vegetable, which he means if he is vegetative state he would like his family to withdraw care and let nature take its course, son is at bedside and understood his father's wishes, as for now he is full code Primary Care Provider: Ananda Vazquez Principal Diagnosis Acute on chronic heart failure, diastolic and right sided Discharge Exam Constitutional WD/WN, vitals as above Eyes PERRL, conjunctivae normal, anicteric sclerae ENMT external ear and nose normal, oropharynx normal Neck trachea midline, no thyromegaly Respiratory normal respiratory effort, lungs clear to auscultation Cardiovascular Rate/Rhythm: regular rate and regular rhythm Heart Sounds: normal S1 and normal S2; no murmur Vessels: no JVD Extremities: normal capillary refill and + edema (pitting in the shins, much improved) Gastrointestinal (Abdomen) normal bowel sounds, soft, nontender, no hepatosplenomegaly Musculoskeletal no cyanosis or clubbing, extremities motor strength 5/5 Skin no rashes, warm and dry Neurologic patellar DTR's 2+ bilat, sensation intact and PERRL, EOMI, accommodation nl, no face palsy, no dysarthria Psychiatric A+Ox3, euthymic affect Lymphatic no cervical or axillary lymphadenopathy Discharge Data Allergies Allergy/AdvReac Type Severity Reaction Status Date / Time amlodipine AdvReac Unknown Swelling Unverified 05/31/19 15:04 Consultations 07/19/19 12:18 Consult Cardiology Routine 07/20/19 11:10 Consult Nephrology Routine Ordered Studies 07/22/19 08:52 US renal/blad retro comp Routine Hospital Course (1) Acute on chronic combined systolic (congestive) and diastolic (congestive) heart failure: echo shows LV hypertrophy but EF is normal, this is improvement compared to 12/2018, likely due to placement of biventricular pacer it does show however elevated pulmonary pressures, dilated left and right atrium, moderate mitral regurgitation so this would more accurately be acute on chronic heart failure with preserved EF, acute on chronic right sided HF good response to Bumex 2mg IV TID, less edema, weight down 9lbs and negative fluid balance of 4200mL Cr actually went down today to 2.86 from 3.1 fluid restriction, daily weights, strict I/O, low sodium diet d/w Dr. Nixon today will d/c home on Bumex 3mg PO BID CHF instructions provided he will follow up closely with Dr. Howell and Dr. Merrill (2) CKD (chronic kidney disease), stage IV: Cr down to 2.86 from 3.1 K is low normal d/c home on Bumex 3mg BID, KCl 20 BID check labs in 5 days with results to Dr. Howell and Dr. Merrill overall Cr has been stable no immediate nees for LOAN REPRESENTATIVE, volume is acceptable follows with Dr. Merrill outpatient has had discussions about hemodialysis in preparation for a situation like this he even visited an HD clinic with his daughter when asked alone, the patient stated that he would NOT want hemodialysis when his daughter and grand daughter are present they tend to push him to consider it however, he was even evaluated by Dr. 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 would not be a good candidate for fistula (3) Shortness of breath: likely due to acute heart failure lungs are clear, denies any dyspnea at rest, just on exertion but better the past three days with diuresis PT consulted to ambulate patient, did well enough to go home (4) COPD (chronic obstructive pulmonary disease): Not in exacerbation (5) Mild pulmonary hypertension: pressures are quite high in the 50mmHg range likely contributing to some right sided heart failure (6) Hyperlipidemia: Continue statin, check lipids panel (7) Hypertension: titrated up on Hydralazine while here will d/c home on Coreg and Hydralazine 100mg TID (8) Gouty arthritis: Colchicine 0.6mg and Prednisone 20mg responded well the past two nights no further pain today Cr is too high to use chronic suppression dosing of Colchicine and Allopurinol Total Time Total Time Spent Total Time Spent (In Minutes): 37 minutes Total Time Includes: Examination of the Patient, Discharge Planning, Medication Reconciliation, Communication With Other Providers (Dr. Nixon) and Other (discussed with family) Discharge Plan Discharge Items Patient Disposition: Home - Self-Care Reason For Visit: ACUTE ON CHRONIC SYSTOLIC HEART FAILURE Discharge Diagnosis: Acute on chronic diastolic heart failure CKD stage IV/V Dyspnea due to heart failure Condition on Discharge: Good Goals: improve control over heart failure daily weights, fluid restriction Activity: Resume your previous activity Bathing: No limitations Exercise/Sports: Gradually increase as tolerated Driving/Machine Use: Resume 3 days after discharge Weightbearing: Full weightbearing Non-emergency contact: Primary Care Provider, Cabinet Finisher and Watermaster Call non-emergency contact if: you have any medication questions, your symptoms worsen and you have a fever Follow-up/Referrals: Ananda Vazquez PA-C [Primary Care Provider] - Diet: Heart Healthy Fluids: 1800ml (7 cups) Ambulatory Orders: Basic Metabolic Panel (Routine) Timeframe: 5 Days Location: Determined by Patient Ordered By: Jaime Mathis Attending Provider Instructions: Medications: - BUMEX: increased to 3mg twice a day, take at 7am and 2pm - POTASSIUM: take 20mEq twice a day at the same time as the Bumex - HYDRALAZINE: dose increased dramatically from 25mg three times a day to 100mg three times a day for better blood pressure control Acute on chronic heart failure, echo shows EF is improved at 55%, shows diastolic failure and elevated pulmonary pressures responded well to Bumex IV, negative over 4 liters and weight down 4 kilograms (9 lbs) edema is improved in the legs renal function is stable, Cr actually went down a little to 2.8 Dr. Nixon recommends going home on Bumex 3mg twice a day and follow up renal function early this week follow a fluid restriction of 1800mL a day (seven 8 oz cups), this is all fluids, water, coffee, juices, soda etc follow a sodium restriction of 2gm a day, please read the amount of sodium in foods step on scale EVERY morning to record your weight, make sure it is not trending upward, if it is up by 2-3 lbs at any time then call Dr. Howell's office FOLLOW UP - Dr. Howell this week, call his office on Thursday for follow up visit - Dr. Merrill in two weeks, call his office on Thursday for follow up visit Call 911 and go to the Emergency Room if: * You have tightness or pain in your chest that does not go away with rest or Nitroglycerin * You are very short of breath even with rest Call your doctor if any of the following symptoms or problems start or get worse: * Shortness of breath or difficulty breathing * Wake up at night short of breath * Chest pain * Cough * Swelling of your hands, fee, or legs * More fatigued or tired with your normal activity * Palpitations - sudden fast heart beats WEIGHT * Weigh yourself every morning after using the bathroom. * Use the same scale. * Wear the same amount of clothing. * Write your weight down on your chart. * Call your doctor if you gain more than 2-3 pounds in 1-2 days. MEDICATIONS * Use this discharge instruction sheet for instructions. * Take your medications at the time your doctor ordered. * Do not skip a dose of your medicines. * If you miss a dose of medicine, take as soon as possible, but DO NOT DOUBLE A DOSE. * Read your medicine information when you get home. * Know all of the side effects of your medicine. * Call your doctor's office if you have any side effects. * Be sure all of your doctors know what medicine and herbs you take (including cold, flu, and herbal medicine). * Pain Medicine: If you do not get relief from your pain, please call your doctor for help. Take the following with you to your follow-up doctor appointments: * Weight Chart * Medication List * List of questions Do not drink excessive alcohol, beer or wine. Pending Studies at Discharge: No Stand-Alone Forms: [email or web address], Smoking Cessation Medications and DC Order Prescriptions: New hydralazine 50 mg Tablet 100 mg PO TID 30 Days Qty: 180 RF: 1 bumetanide 1 mg Tablet 3 mg PO [id number] 30 Days Qty: 180 RF: 1 potassium chloride [Klor-Con M20] 20 mEq Tablet,Er Particles/Crystals 20 meq PO BID Qty: 60 RF: 1 Continued multivitamin Tablet 1 tab PO DAILY RF: 0 carvedilol 25 mg Tablet 25 mg PO BID RF: 0 carvedilol 12.5 mg Tablet 12.5 mg PO BID RF: 0 aspirin 81 mg Tablet,Delayed Release (Dr/Ec) 81 mg PO [id number] RF: 0 ferrous sulfate 325 mg (65 mg iron) Tablet 325 mg PO TID RF: 0 cholecalciferol (vitamin D3) [Vitamin D3] 400 unit Tablet 400 unit PO DAILY RF: 0 cyanocobalamin (vitamin B-12) [Vitamin B-12] 100 mcg tablet 100 mcg PO Q OTHER DAY RF: 0 Discontinued bumetanide 1 mg tablet 1.5 mg PO DAILY RF: 0 hydralazine 25 mg Tablet 25 mg PO BID RF: 0 Discharge Orders: Discharge Order (Routine); Ordered 07/23/19 Ordered By: Jaime Don/Other Patient Handouts: Heart Failure, Heart Failure Coping, Disease Chronic Kidney Dc Admission Data Admit Date/Time: 07/19/19 10:56 Attending Provider: Jaime Kong Admit Provider: Jaime Kong Primary Care Provider: Ananda Vazquez Other Providers: Sherif Howell Kevin C. Other Interventions: Discharge Summary Assessment (RN) Last Done: 07/23/19 13:08
[2019-07-23] MEDS ORDERED: BUMETANIDE 1 MG TAB PO SCH (14:00)
== END 2019-07-23 13:45 | disposition home or self-care (01) | DRG 291 ==
LOC: 2S 10:56